=== PATIENT | male | born 1990 | race Caucasian/White ===

== ENCOUNTER 2022-01-11 16:52 | Emergency (ER) | payer OTHER, SELFPAY ==
[2022-01-11 17:01] VITALS: BP 137/70; PULSE 60; RESP 20; TEMP 36.7; O2SAT 137; BMI 33.7
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
--- OUTSIDE RECORDS SUMMARY | 2022-01-14 10:47 | XMS_ITS | Encounter Summary ---
:1990 Author Organization [email or web address] Address [address] [place] [address] Care Team Providers Name Role Phone Markie Samuel PA-C Primary Care Provider [phone] Reason for Visit Reason Comments Depression Registry Call 1 Encounter Details Date Type Department Care Team Description 08/01/2018 Telephone [place] [facility] Markie Samuel Depres sion Registry Medicine [facility] Call [address] [place] [address] Blvd [phone] [place], [place] [address] (Wo rk) Social History Tobacco Use Types Packs/Day Years Used Date Smoking Tobacco: Never Smokeless Tobacco: Never Alcohol Use Standard Drinks/Week Comments Yes 2 (1 standard drink = 0.6 oz pure alcoho l) weekly Alcohol Habits Answer Date Recorded How often do you have a drink containing alcohol? Not asked How many drinks containing alcohol do you have on a typical Not asked day when you are drinking? How often do you have six or more drinks on one occasion? No t asked Comment: weekly 07/19/2017 Sex Assigned at Date Recorded Not on file documented as of this encounter Nursing Notes Karina Charles MA - 08/01/2018 11:52 AM CDT PHQ 9 is 4, it was 2 in Dec documented in this encounter Plan of Treatment Not on filedocumented as of this encounter Visit Diagnoses Not on filedocumented in this encounter Care Teams Transmission Specialist Relationship Specialty Start Date End Date Markie Samuel PA-C PCP - General Physician Program Strategist 10/13/16 06/06/21 [address] [place] [address] documented as of this encounter
--- OUTSIDE RECORDS SUMMARY | 2022-01-14 10:47 | XMS_ITS | Encounter Summary ---
:1990 Author Organization [employer] Address [address] [place] [address] Care Team Providers Name Role Phone Markie Samuel PA-C Primary Care Provider [phone] Reason for Visit Reason Comments DEPRESSION Encounter Details Date Type Department Care Team Description 10/12/2017 Notes/Orders [place] [facility] Markie Samuel, [address] [place] [address] [phone] [place], [place] [address] (Wo rk) Social History [...] on file documented as of this encounter Plan of Treatment Not on filedocumented as of this encounter Visit Diagnoses Not on filedocumented in this encounter Care Teams Elevator Adjuster Relationship Specialty Start Date End Date Markie Samuel PA-C PCP - General Physician Sander Portable Machine 10/13/16 06/06/[address] [place] [address] documented as of this encounter
--- OUTSIDE RECORDS SUMMARY | 2022-01-14 10:47 | XMS_ITS | Encounter Summary ---
:1990 Author Organization [employer] Address [address] [place] [address] Care Team Providers Name Role Phone Markie Samuel PA-C Primary Care Provider [phone] Reason for Visit Reason Comments DEPRESSION Encounter Details Date Type Department Care Team Description 10/31/2017 Notes/Orders [place] [facility] Markie Samuel, [address] [place] [address] [address] [phone] [place], [place] [address] (Wo rk) Social History [...] on file documented as of this encounter Progress Notes Karina Charles MA - 10/31/2017 10:45 AM CDT LMTD PHQ 9 Karina Charles MA - 10/31/2017 10:45 AM CDT PHQ 9 is 2, it was 11 in August documented in this encounter Plan of Treatment Not on filedocumented as of this encounter Visit Diagnoses Not on filedocumented in this encounter Care Teams Chart Computer Relationship Specialty Start Date End Date Markie Samuel PA-C PCP - General Physician Booster Pump Operator 10/13/16 06/06/21 [address] [place] [address] documented as of this encounter
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
--- OUTSIDE RECORDS SUMMARY | 2022-01-14 10:47 | XMS_ITS | Encounter Summary ---
:1990 Author Organization [employer] Address [address] [place] [address] Care Team Providers Name Role Phone Markie Samuel PA-C Primary Care Provider [phone] Reason for Visit Reason Comments DEPRESSION Encounter Details Date Type Department Care Team Description 06/25/2018 Telephone [place] [facility] Markie Samuel PA-C DEPRESSION [address] [place] [address] [place] [address] [phone] (Wo rk) Social History Tobacco Use Types [...] encounter Nursing Notes Karina Charles MA - 06/25/2018 2:00 PM CDT PHQ 9 needed documented in this encounter Plan of Treatment Not on filedocumented as of this encounter Visit Diagnoses Not on filedocumented in this encounter Care Teams Ux Developer Designer Relationship Specialty Start Date End Date Markie Samuel PA-C PCP - General Physician Recreational Assistant 10/13/16 06/06/21 [address] [place] [address] documented as of this encounter
--- OUTSIDE RECORDS SUMMARY | 2022-01-14 10:47 | XMS_ITS | Encounter Summary ---
:1990 Author Organization [employer] Address [address] [place] [address] Care Team Providers Name Role Phone Markie Samuel PA-C Primary Care Provider [phone] Reason for Visit Reason Comments DEPRESSION Encounter Details Date Type Department Care Team Description 12/21/2017 Notes/Orders [place] [facility] Markie Samuel, [address] [place] [address] [address] [phone] [place], [place] [address] (Wo rk) Social History [...] encounter Progress Notes Karina Charles MA - 12/21/2017 8:19 AM CDT PHQ 9 is 2, it was 2 in October documented in this encounter Plan of Treatment Not on filedocumented as of this encounter Visit Diagnoses Not on filedocumented in this encounter Care Teams Container Filler Relationship Specialty Start Date End Date Markie Samuel PA-C PCP - General Physician Saw Runner 10/13/16 06/06/21 [address] [facility] [place] [address] documented as of this encounter
--- OUTSIDE RECORDS SUMMARY | 2022-01-14 10:47 | XMS_ITS | Encounter Summary ---
:1990 Author Organization [employer] Address [address] [place] [address] Care Team Providers Name Role Phone Markie Samuel PA-C Primary Care Provider [phone] Reason for Visit Reason Comments ASTHMA Encounter Details Date Type Department Care Team Description 11/04/2016 Notes/Orders [place] [facility] Markie Samuel, [address] [place] [address] [phone] [place], [place] [address] (Wo rk) Social History Tobacco Use Types Packs/Day Years Used Date Smoking Tobacco: Never Smokeless Tobacco: Never Alcohol Use Standard Drinks/Week Comments Yes 12 (1 standard drink = 0.6 oz pure alcoh ol) Tends to be socially Alcohol Habits Answer Date Recorded How often do you have a drink containing alcohol? Not asked How many drinks containing alcohol do you have on Not asked a typical day when you are drinking? How often do you have six or more drinks on one Not asked occasion? Comment: Tends to be socially 12/04/2013 Sex Assigned at Date Recorded Not on file documented as of this encounter Progress Notes Padmini Mobley LPN - 11/04/2016 9:44 AM CDT Registry updated. documented in this encounter Plan of Treatment Not on filedocumented as of this encounter Visit Diagnoses Not on filedocumented in this encounter Care Teams Premium Card Cancellation Clerk Relationship Specialty Start Date End Date Markie Samuel PA-C PCP - General Physician Cutter And Paster Press Clippings 10/13/16 06/06/21 [address] [facility] [address] documented as of this encounter
--- OUTSIDE RECORDS SUMMARY | 2022-01-14 10:47 | XMS_ITS | Encounter Summary ---
:1990 Author Organization [employer] Address [address] [place] [address] Care Team Providers Name Role Phone Markie Samuel PA-C Primary Care Provider [phone] Reason for Visit Reason Comments DEPRESSION Encounter Details Date Type Department Care Team Description 09/25/2017 Notes/Orders [place] [facility] Markie Samuel, [address] [facility] [place] [address] [phone] [place], [place] [address] (Wo rk) Social History [...] on filedocumented in this encounter Care Teams Data Management Analyst Relationship Specialty Start Date End Date Markie Samuel PA-C PCP - General Physician Rehabilitation Assistant 10/13/16 06/06/[address] [place] [address] documented as of this encounter
--- OUTSIDE RECORDS SUMMARY | 2022-01-14 10:47 | XMS_ITS | Encounter Summary ---
:1990 Author Organization [facility] Address [address] [place] [address] Care Team Providers Name Role Phone Markie Samuel PA-C Primary Care Provider [phone] Reason for Visit Reason Comments Refill citalopram (CELEXA) 20 MG ta blet [Pharmacy Med Name: CITALOPRAM HBR 20 MG TABLET] Encounter Details Date Type Department Care Team Description 08/24/2018 Refill Li Galvez, Refill (citalopram 1884 Devika Schwab MD (CELEXA) 20 [place] [address] [address] [Pharmacy Med Name: [phone] [place] [address] CITALOPRAM HBR 20 MG [phone] (Wo rk) TABLET]) Social History Tobacco Use Types Packs/Day Years [...] documented as of this encounter Nursing Notes Faiza Powell, REAGAN - 08/28/2018 10:35 AM CDT PRINTED appt letter sent Sonia Sanchez, RN - 08/24/2018 11:57 AM CDT OFFICE APPOINTMENT NEEDED Please notify patient to schedule an appointment within 30 days. Requested Prescriptions Pending Prescriptions Disp Refills ??? citalopram (CELEXA) 20 MG tablet [Pharmacy Med Name: CITALOPRAM HBR 20 MG TABLET] 90 Tablet 0 Sig: TAKE 1 TABLET BY MOUTH ONCE DAILY. Interface, Out Surescripts Prov Query - 08/24/2018 11:49 AM CDT citalopram (CELEXA) 20 MG tablet [Pharmacy Med Name: CITALOPRAM HBR 20 MG TABLET] Medication started: 01/30/2013 Last ordered by LI ORTIZ C: 07/19/2017 (401 days ago) QTY: 90, Refills: 3, Sig: take 1 tab by mouth daily. (changed but equivalent) -> Refill x 3 months (courtesy refill. overdue for an office visit) Last qualifying visit: 08/18/2017 (with LI ORTIZ) Next scheduled visit: None SBP: 104 mm Hg on 08/18/2017 DBP: 64 mm Hg on 08/18/2017 Powered by [employer] Reference: [id number], 08/24/2018 11:49:09 AM CDT, Pool: UMESH BUNNILL ([id number]) documented in this encounter Plan of Treatment Not on filedocumented as of this encounter Visit Diagnoses Not on filedocumented in this encounter Care Teams Airways Operations Specialist Relationship Specialty Start Date End Date Markie Samuel PA-C PCP - General Physician Shutdown Planner 10/13/16 06/06/21 [address] [place] [address] documented as of this encounter
--- OUTSIDE RECORDS SUMMARY | 2022-01-14 10:47 | XMS_ITS | Encounter Summary ---
:1990 Author Organization [facility] Address [address] [place] [address] Care Team Providers Name Role Phone Markie Samuel PA-C Primary Care Provider [phone] Reason for Visit Reason Comments ASTHMA Encounter Details Date Type Department Care Team Description 10/20/2016 Notes/Orders [place] [facility] Markie Samuel, [address] [place] [address] [phone] [place], [place] [address] (Wo rk) Social History [...] encounter Progress Notes Padmini Mobley LPN - 10/20/2016 8:03 AM CDT ACT mailed. documented in this encounter Plan of Treatment Not on filedocumented as of this encounter Visit Diagnoses Not on filedocumented in this encounter Care Teams Php Wordpress Developer Relationship Specialty Start Date End Date Markie Samuel PA-C PCP - General Physician Youth Care Specialist 10/13/16 06/06/21 [address] [facility] [place] [address] documented as of this encounter
--- OUTSIDE RECORDS SUMMARY | 2022-01-14 10:47 | XMS_ITS | Clinical Summary ---
:1990 Author Organization [facility] Address [address] [place] [address] Care Team Providers Name Role Phone Unavailable Primary Care Provider Unavailable Source Comments You are receiving this document as you are listed as the primary care provider,follow-up provider, or the patient has been referred to you for consultation.This is in compliance with the Medicare and Medicaid EHR Incentive Program,which states Providers who transition their patient to another setting of careor provider of care or refers their patient to another provider of care shouldprovide summarycare record for each transition of care or referral. Hydra Dx Allergies Active Allergy Reactions Severity Noted Date Comments Latex 08/10/2010 PN: Converted f rom LW Latex Sensitivity Fla g Other 06/25/2010 PN: LW Other1: -LATEX Penicillins 06/28/2002 PN: LW Reaction : Rash, Generalized Review Contrast Media 06/25/2010 PN: LW CM1: >>> NO CONTRAST ADVERSE REACTIO N <<< Reaction : Review Food Intolerance 06/25/2010 PN: LW FI1: bananas, cantalope, kiwi LW FI2: ba nanas, cantalope, kiwi Medications Medication Sig Dispensed Refills Start Date End Date Status citalopram (CELEXA) 20 TAKE 1 TABLET BY 90 Tablet 0 08/24/2018 Active MG tablet MOUTH ONCE DAILY. Active Problems Problem Noted Date Moderate episode of recurrent major depressive disorde r 07/19/2017 Anxiety 07/19/2017 Closed fracture of radius 07/20/2009 Overview: LW Modifier: Mar 2003. Left. Tranverse.N on-dispaced. ; Fx Radius NOS Closed Concussion with no loss of consciousness 07/20/2009 Overview: August 200809. Grade I. ; Concussion No LOC Asthma 11/24/2004 Overview: Trigger: Swimming.Running.URI. [id number] ; Asthma NOS Resolved Problems Problem Noted Date Resolved Date Adjustment reaction with anxiety and depression 02/25/2016 07/19/2017 Other acne 10/08/2007 11/29/2010 Overview: LW Modifier: See's derm. ; Acne NOS Acute pharyngitis 04/21/2005 05/22/2005 Overview: LW Onset: ; Pharyngitis Acute Immunizations Name Administration Dates Next Due DTaP 07/23/1997 DTaP/Hib 12/11/1993, 03/24/1993, 1992, 1992 Flu Vac Preserv Free (3+yrs) 02/28/2007 HepA Ped/Adol (1-18 yrs) 10/08/2007, 08/14/2006 HepB Ped/Adol (0-18 yrs) 09/09/2005, 04/13/2005, 11/24/2004 Influenza IIV4 (Quadrivalent) 0.5mL 01/30/2016 (13897) MCV4 (Menactra) 11/29/2010, 08/14/2006 MMR 07/23/1997, 12/11/1993 OPV, Trivalent (Orimune or tOPV) 07/23/1997, 12/08/1993, , 1992 TDAP (ADACEL) 11/29/2010 Td 10/02/2003 Varicella 10/08/2007, 01/15/2001 Family History Medical History Relation Name Comments Anxiety Father Depression Father Mental Disorder Father Anxiety Mother Depression Mother Cancer Maternal Grandfather Heart Disease Maternal Grandfather Anxiety Sister 1 Lilli Relation Name Status Comments Father Alive Born in 1959 Mother Alive Born in 1963 Brother [place] Alive Born in 1995 Maternal Grandfather Sister 1 Lilli Alive Born in 1989 Sister 2 January Alive Born in 1999 Social History Tobacco Use Types Packs/Day Years [...] Assigned at Date Recorded Not on file Last Filed Vital Signs Vital Sign Reading Time Taken Comments Blood Pressure 104/64 08/18/2017 8:30 AM CDT Pulse 72 08/18/2017 8:30 AM CDT Temperature 36.7 ??C (98 ??F) 10/19/2016 8:34 AM CDT Respiratory Rate 18 10/19/2016 8:34 AM CDT Oxygen Saturation 97% 10/19/2016 8:34 AM CDT Inhaled Oxygen Concentration - - Weight 105.7 kg (233 lb) 08/18/2017 8:30 AM CDT Height 190.5 cm (6' 3) 02/25/2016 3:38 PM REVIEW MANAGER Body Mass Index 29.12 02/25/2016 3:38 PM REVIEW MANAGER Plan of Treatment Health Maintenance Due Date Last Done Comments COVID-19 Vaccine (#1) 01/17/1993 Asthma AMP 19-50 yo 07/19/2011 Adult Preventive Visit 02/24/2018 02/25/2016 Asthma ACT 07/19/2018 07/19/2017, 11/04/2016, 10/13/2016 DTaP/Tdap/Td (7 - Tdap) 11/29/2020 11/29/2010, 10/02/2003, 07/23/1997, Additional history exists Influenza (#1) 2021 01/30/2016, 02/28/2007 Zoster/Shingles (1 of 2) 2042 Hib Completed 12/11/1993, 03/24/1993, 1992, Additional history exists IPV (Polio) Completed 07/23/1997, 12/08/1993, 1992, Additional history exists HepB Completed 09/09/2005, 04/13/2005, 11/24/2004 HepA Completed 10/08/2007, 08/14/2006 Varicella Completed 10/08/2007, 01/15/2001 HIV Screening (Preventive Completed 06/24/2010 Services) Hep C Screening (Preventive Completed 06/24/2010 Services) MCV4 Completed 11/29/2010, 08/14/2006 HPV Vaccine Aged Out No longer eligib le based on patient 's age to complete this topic Pneumococcal Aged Out No longer eligib le based on patient 's age to complete this topic Tom Eng Personal/Family Self 1990 [id number] [address] (Home) [address] [phone] Agustin FREEMAN (Work) [id number]
--- OUTSIDE RECORDS SUMMARY | 2022-01-14 10:47 | XMS_ITS | Encounter Summary ---
:1990 Author Organization [facility] Address [address] [place] [address] Care Team Providers Name Role Phone Markie Samuel PA-C Primary Care Provider [phone] Encounter Details Date Type Department Care Team Description 11/04/2016 Notes/Orders [facility] Markie Samuel, [address] [place] [address] [phone] [place], [place] [address] (Wo rk) Social History [...] on filedocumented in this encounter Care Teams Party Plan Sales Unit Advisor Relationship Specialty Start Date End Date Markie Samuel PA-C PCP - General Physician Wind Operations Manager 10/13/16 06/06/[address] [place] [address] documented as of this encounter
--- OUTSIDE RECORDS SUMMARY | 2022-01-14 10:47 | XMS_ITS | Encounter Summary ---
:1990 Author Organization [facility] Address [address] [place] [address] Care Team Providers Name Role Phone Markie Samuel PA-C Primary Care Provider [phone] Reason for Visit Reason Comments MEDICATION CHECK Encounter Details Date Type Department Care Team Description 08/18/2017 Office Visit Angus Galvez Moderate episode of recurren t major depressive disorder (HRC) (Primary Dx); [address] Dev[place] [address] [address] [phone] [place] [id number] Social History Tobacco Use Types Packs/Day Years [...] Pulse 72 08/18/2017 8:30 AM CDT Temperature - - Respiratory Rate - - Oxygen Saturation - - Inhaled Oxygen Concentration - - Weight 105.7 kg (233 lb) 08/18/2017 8:30 AM CDT Height - - Body Mass Index 29.12 02/25/2016 3:38 PM RAG SORTER documented in this encounter Progress Notes Angus Warren MD - 08/18/2017 8:30 AM CDT Please note that the medical documentation below was created with voice recognition software and maycontain typographic errors. Chief Complaint Patient presents with ??? MEDICATION CHECK SUBJECTIVE : Tom Eng is an 27 y.o. male who presents Today for follow-up for his depression and anxiety. I last saw him about one month ago. At that time we started him on citalopram 20 mg daily. He does feel like the medication definitely has helped his mood. He says his thoughts are better. He is much less anxious and paranoid. His boss has noticed that he is happier and has made comments to him regarding this. He has noticed that his appetite has been up. He also has noticed that he has been sleeping more. 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 He is looking for a new job where he does not have to work night shifts. He denies any otherside effects. Allergies Allergen Reactions ??? Latex PN: Converted from LW Latex Sensitivity Flag ??? Other PN: LW Other1: -LATEX ??? Penicillins PN: LW Reaction: Rash, Generalized ??? Review Contrast Media PN: LW CM1: >>> NO CONTRAST ADVERSE REACTION <<< Reaction : ??? Review Food Intolerance PN: LW FI1: bananas, cantalope, kiwi LW FI2: bananas, cantalope, kiwi OBJECTIVE : BP 104/64 (BP Location: Right Arm) Pulse 72 Wt 233 lb (105.7 kg) BMI 29.12 kg/m2 Estimated body mass index is 29.12 kg/(m^2) as calculated from the following: Height as of 02/25/16: 6' 3 (1.905 m). Weight as of this encounter: 233 lb (105.7 kg). Gen: Alert, cooperative in no acute distress. Mental Status Exam: Appearance: The patient is well groomed in appropriate attire, normally developed, establishes good eye contact. Mood: Good Affect: Congruent with mood and with good range. Thought Process: Thought form is linear and logical with no loosening of associations. Thought Content: No hallucinations or delusions. Insight: Good, developmentally appropriate. Judgment: Intact with ability to consent to treatment plan. Suicidal Ideation: No thoughts of harm to self or others PHQ-9: See flowsheet KATALINA-7: See flowsheet ASSESSMENT/PLAN : 1. Anxiety and depression----patient is doing well with the citalopram 20 g daily. He will continue this. If she is not improving or is becoming more symptomatic or unable to tolerate it I did recommend he decrease down to the 10 mg dose and see if this works well enough for him. documented in this encounter Plan of Treatment Not on filedocumented as of this encounter Visit Diagnoses Diagnosis Moderate episode of recurrent major depr essive disorder (HRC) - Primary Anxiety (HRC) Anxiety state, unspecified documented in this encounter Care Teams Intelligent Systems Engineer Relationship Specialty Start Date End Date Markie Samuel PA-C PCP - General Physician Sand Plant Attendant 10/13/16 06/06/21 [address] [place] [address] documented as of this encounter
--- OUTSIDE RECORDS SUMMARY | 2022-01-14 10:48 | XMS_ITS | Encounter Summary ---
:1990 Author Organization [facility] Address [address] [place] [address] Care Team Providers Name Role Phone Markie Samuel PA-C Primary Care Provider [phone] Reason for Visit Reason Onset Date Comments ASTHMA 10/13/2016 Encounter Details Date Type Department Care Team Description 10/13/2016 Telephone [place] [facility] Needs Pcp, Assignment ASTHMA [address] [place] [address] [place] [address] [phone] Social History Tobacco Use Types Packs/Day Years [...] documented as of this encounter Nursing Notes Padmini Mobley LPN - 10/13/2016 8:07 AM CDT ACT updated today with pt over phone. Done. documented in this encounter Plan of Treatment Not on filedocumented as of this encounter Visit Diagnoses Not on filedocumented in this encounter Care Teams Manager Field Service Relationship Specialty Start Date End Date Markie Samuel PA-C PCP - General Physician Machining Department Supervisor 10/13/16 06/06/21 [address] [place] [address] documented as of this encounter
--- OUTSIDE RECORDS SUMMARY | 2022-01-14 10:48 | XMS_ITS | Encounter Summary ---
:1990 Author Organization [facility] Address [address] [place] [address] Care Team Providers Name Role Phone Jay Cho PA-C Primary Care Provider Reason for Visit Reason Comments Refill Encounter Details Date Type Department Care Team Description 03/01/2013 Refill [place] [facility] Jay Cho PA-C Refill [address] [place] [address] [place] [address] [phone] (Wo rk) Social History Tobacco Use Types Packs/Day Years Used Date Smoking Tobacco: Never Assessed Sex Assigned at Date Recorded Not on file documented as of this encounter Nursing Notes Hermelinda Bell RN - 03/01/2013 2:24 PM CST DOES NOT MEET REQUIREMENTS FOR REFILL Reason: New med without refill Last visit with PCP: qualifying visit on 01/30/13 Last Rx 01/30/13. CELEXA 20 mg. 30 tablet. 0 refill Please see below. ONAL EXPANSION RECRUITER Jackie Dean - 03/01/2013 1:30 PM CST Pt states he is out of medication. Verified pharmacy. Pt has appt scheduled for 03-06 documented in this encounter Plan of Treatment Not on filedocumented as of this encounter Visit Diagnoses Diagnosis Depression, major, single episode, moder ate (HRC) - Primary Major depressive disorder, single episod e, moderate documented in this encounter Care Teams Special Inspector Relationship Specialty Start Date End Date Jay Cho PA-C PCP - General 03/01/13 09/19/16 [address] [place], [place] [address] documented as of this encounter
--- OUTSIDE RECORDS SUMMARY | 2022-01-14 10:48 | XMS_ITS | Encounter Summary ---
:1990 Author Organization [facility] [employer] Address [address] [place] [address] Care Team Providers Name Role Phone Markie Samuel PA-C Primary Care Provider [phone] Reason for Visit Reason Comments Chest Pain Encounter Details Date Type Department Care Team Description 10/19/[address] [facility] Urgent [place], Chris Sternoco stal pain (Primary Dx); Encounter Care AYM Paz Costochondritis [address] [address] [facility] [place] [address] [phone] Social History Tobacco Use Types Packs/Day Years [...] Sign Reading Time Taken Comments Blood Pressure 106/64 10/19/2016 8:34 AM CDT Pulse 56 10/19/2016 8:34 AM CDT Temperature 36.7 ??C (98 ??F) 10/19/2016 8:34 AM CDT Respiratory Rate 18 10/19/2016 8:34 AM CDT Oxygen Saturation 97% 10/19/2016 8:34 AM CDT Inhaled Oxygen Concentration - - Weight - - Height - - Body Mass Index - - documented in this encounter Discharge Instructions Discharge InstructionsChris Lyle PA-C - 10/19/2016 8:48 AM CDT No lifting over 20 lbs, no pushing or pulling over 50 lbs. NO lifting above your head. No ladders...Restrictions for 14 days ICE, topicals like Icyhot..at bedtime Costochondritis: Care Instructions Your Care Instructions You have chest pain because the cartilage of your rib cage is inflamed. This problem is called costochondritis. This type of chest wall pain may last from days to weeks. It is not a heart problem. Sometimes costochondritis occurs with a cold or the flu, and other times the exact cause is not known. Follow-up care is a roger part of your treatment and safety. Be sure to make and go to all appointments, and call your doctor if you are having problems. It???s also a good idea to know your test resultsand keep a list of the medicines you take. How can you care for yourself at home? ?? Take medicines for pain and inflammation exactly as directed. ?? If the doctor gave you a prescription medicine, take it as prescribed. ?? If you are not taking a prescription pain medicine, ask your doctor if you can take an qdqt-wlk-mudwqkf medicine. ?? Do not take two or more pain medicines at the same time unless the doctor told you to. Many pain medicines have acetaminophen, which is Tylenol. Too much acetaminophen (Tylenol) can be harmful. ?? It may help to use a warm compress or heating pad (set on low) on your chest. You can also try alternating heat and ice. Put ice or a cold pack on the area for 10 to 20 minutes at a time. Put a thincloth between the ice and your skin. ?? Avoid any activity that strains the chest area. As your pain gets better, you can slowly return to your normal activities. ?? Do not use tape, an elastic bandage, a rib belt, or anything else that restricts your chest wall motion. When should you call for help? Call 911 anytime you think you may need emergency care. For example, call if: ?? You have new or different chest pain or pressure. This may occur with: ?? Sweating. ?? Shortness of breath. ?? Nausea or vomiting. ?? Pain that spreads from the chest to the neck, jaw, or one or both shoulders or arms. ?? Dizziness or lightheadedness. ?? A fast or uneven pulse. After calling 911, chew 1 adult-strength aspirin. Wait for an ambulance. Do not try to drive yourself. ?? You have severe trouble breathing. Call your doctor now or seek immediate medical care if: ?? You have a fever or cough. ?? You have any trouble breathing. ?? Your chest pain gets worse. Watch closely for changes in your health, and be sure to contact your doctor if: ?? Your chest pain continues even though you are taking anti-inflammatory medicine. ?? Your chest wall pain has not improved after 5 to 7 days. Where can you learn more? 1. Go to [employer] or [email or web address]. 2. Enter K868 in the search box. Current as of: September 11, 2015 Content Version: 11.2 ?? 5729-8439 Tyfone. documented in this encounter Medications at Time of Discharge Medication Sig Dispensed Refills Start Date End Date naproxen (NAPROSYN) 500 Take 1 Tab by mouth 30 Tab 0 08/201611/03/2016 MG tablet two times a day with meals for 15 days. citalopram (CELEXA) 20 MG 1/2 tab po x 2 30 Tab 0 201507/19/2017 tabletIndications: weeks, then 1 tab po Adjustment reaction with qday. anxiety and depression (HRC) documented as of this encounter ED Notes Chris Lyle PA-C - 10/19/2016 8:49 AM CDT SUBJECTIVE: Tom Eng is a 26 y.o.male presenting to urgent care for evaluation of chest pain. Noticed it yesterday. Worse last night. He describes it as sharp and intermittent pain with a constant dull ache. Certain positions make it worse. It hurts to turn twist lift push pull or taking a deep breath. He denies any rash. No cough. No fever or chills. No abdominal pain. No exertional symptoms other than pain with specific movements or to touch. He has not had this in the past. He has a physical job but remembers no specific injury. Social History: Social History Substance Use Topics ??? Smoking status: Never Smoker ??? Smokeless tobacco: Never Used ??? Alcohol use 7.2 oz/week 12 Cans of beer per week Comment: Tends to be socially Past Medical History: Patient Active Problem List Diagnosis ??? Asthma (HRC) ??? Closed fracture of radius ??? Concussion with no loss of consciousness ??? Adjustment reaction with anxiety and depression (HRC) Adverse Drug Reactions: Latex; Other; Penicillins; Review contrast media; and Review food intolerance ROS: Complete ROS was negative other than what was cited above. Medications: citalopram and naproxen OBJECTIVE: Vital Signs: BP 106/64 Pulse (!) 56 Temp 36.7 ??C (98 ??F) (Oral) Resp 18 SpO2 97%. General: No acute distress Skin: No abnormal rash. No obvious swelling. Musculoskeletal: There is palpable, reproducible chest wall pain anteriorly along the sternal costaljunctions. Palpation of this area reproduces his discomfort specifically and exactly. Lungs: CTA CV: Regular rate and rhythm a pressure gallops or murmurs Labs: No results found for this visit on 10/19/16. X-Rays: No results found. Orders Placed This Encounter ??? naproxen (NAPROSYN) 500 MG tablet ASSESSMENT: 1. Sternocostal pain 2. Costochondritis PLAN: Medications - No data to display Discharge Medication List as of 10/19/2016 8:49 AM START taking these medications Details naproxen (NAPROSYN) 500 MG tablet Take 1 Tab by mouth two times a day with meals for 15 days., Disp-30 Tab, R-0, BID WITH MEALS Starting 10/19/2016, Until Emy 11/03/16, Oral, Normal CONTINUE these medications which have NOT CHANGED Details citalopram (CELEXA) 20 MG tablet 1/2 tab po x 2 weeks, then 1 tab po qday., Disp-30 Tab, R-0, Normal Medications Prescribed this Visit Disp Refills Start End naproxen (NAPROSYN) 500 MG tablet 30 Tab 0 10/19/2016 11/03/2016 Take 1 Tab by mouth two times a day with meals for 15 days. Oral work note was given with restrictions. We discussed that this may take several days to weeks to resolve fully. Follow-up with primary care if it persists. Discharge Instructions No lifting over 20 lbs, no pushing or pulling over 50 lbs. NO lifting above your head. No ladders... Restrictions for 14 days ICE, topicals like Icyhot..at bedtime Costochondritis: Care Instructions Your Care Instructions You have chest pain because the cartilage of your rib cage is inflamed. This problem is called costochondritis. This type of chest wall pain may last from days to weeks. It is not a heart problem. Sometimes costochondritis occurs with a cold or the flu, and other times the exact cause is not known. Follow-up care is a roger part of your treatment and safety. Be sure to make and go to all appointments, and call your doctor if you are having problems. It???s also a good idea to know your test results and keep a list of the medicines you take. How can you care for yourself at home? ?? Take medicines for pain and inflammation exactly as directed. ?? If the doctor gave you a prescription medicine, take it as prescribed. ?? If you are not taking a prescription pain medicine, ask your doctor if you can take an byen-uio-ixmfquk medicine. ?? Do not take two or more pain medicines at the same time unless the doctor told you to. Many pain medicines have acetaminophen, which is Tylenol. Too much acetaminophen (Tylenol) can be harmful. ?? It may help to use a warm compress or heating pad (set on low) on your chest. You can also try alternating heat and ice. Put ice or a cold pack on the area for 10 to 20 minutes at a time. Put a thin cloth between the ice and your skin. ?? Avoid any activity that strains the chest area. As your pain gets better, you can slowly return to your normal activities. ?? Do not use tape, an elastic bandage, a rib belt, or anything else that restricts your chest wall motion. When should you call for help? Call 911 anytime you think you may need emergency care. For example, call if: ?? You have new or different chest pain or pressure. This may occur with: ?? Sweating. ?? Shortness of breath. ?? Nausea or vomiting. ?? Pain that spreads from the chest to the neck, jaw, or one or both shoulders or arms. ?? Dizziness or lightheadedness. ?? A fast or uneven pulse. After calling 911, chew 1 adult-strength aspirin. Wait for an ambulance. Do not try to drive yourself. ?? You have severe trouble breathing. Call your doctor now or seek immediate medical care if: ?? You have a fever or cough. ?? You have any trouble breathing. ?? Your chest pain gets worse. Watch closely for changes in your health, and be sure to contact your doctor if: ?? Your chest pain continues even though you are taking anti-inflammatory medicine. ?? Your chest wall pain has not improved after 5 to 7 days. Where can you learn more? 1. Go to [employer] or [email or web address]. 2. Enter K868 in the search box. Current as of: September 11, 2015 Content Version: 11.2 ?? [id number] Tyfone. The patient was discharged ambulatory and in stable condition. documented in this encounter Plan of Treatment Not on filedocumented as of this encounter Visit Diagnoses Diagnosis Sternocostal pain - Primary Other chest pain Costochondritis Tietze's disease Triage Assessment Note - Tayler Haile RN - 10/19/2016 8:33 AM CDT Pt c/o left sided chest pain, onset last night around 2029. Pt states pain is worse with movement and with deep breathing. documented in this encounter Care Teams Liner Worker Relationship Specialty Start Date End Date Markie Samuel PA-C PCP - General Physician Forensics Analyst 10/13/16 06/06/21 [address] [place] [address] documented as of this encounter
--- OUTSIDE RECORDS SUMMARY | 2022-01-14 10:48 | XMS_ITS | Encounter Summary ---
:1990 Author Organization [employer] Address [address] [place] [address] Care Team Providers Name Role Phone Sim Asher MD Primary Care Provider Encounter Details Date Type Department Care Team Description 09/24/2012 Lab Visit [facility] Urinary frequency; [address] [place]ough; [place] [address] Bright red rectal bleeding [phone] Social History Tobacco Use Types Packs/Day Years Used Date Smoking Tobacco: Never Assessed Sex Assigned at Date Recorded Not on file documented as of this encounter Progress Notes Macey Alejandra - 09/25/2012 12:28 PM CDT Quick Note: Please call patient kidney functions normal, hemoglobin A1c (diabetes marker) 5.5% normal. No concerns for diabetes, STD probe still pending. documented in this encounter Miscellaneous Notes Miscellaneous - 05/27/2016 6:31 AM CSTNotes Recorded by Macey Alejandra PA-C on 09/25/2012 at 12:28 PMPlease call patient kidney functions normal, hemoglobin A1c (diabetes marker) 5.5% normal. No concerns for diabetes, STD probe still pending. 'S ADVISER Miscellaneous - 05/27/2016 6:31 AM CSTNotes Recorded by Macey Alejandra PA-C on 09/25/2012 at 12:28 PMPlease call patient kidney functions normal, hemoglobin A1c (diabetes marker) 5.5% normal. No concerns for diabetes, STD probe still pending. 'S ADVISER Miscellaneous - 05/27/2016 6:31 AM CSTNotes Recorded by Macey Alejandra PA-C on 09/25/2012 at 12:28 PMPlease call patient kidney functions normal, hemoglobin A1c (diabetes marker) 5.5% normal. No concerns for diabetes, STD probe still pending. 'S ADVISER documented in this encounter Plan of Treatment Not on filedocumented as of this encounter Procedures Procedure Name Priority Date/Time Associated Comments Diagnosis CREATININE / GFR Routine 09/24/2012 3:06 PM Urinary frequency Results for this CDT procedure are i n the results section. COMPLETE BLOOD Routine 09/24/2012 3:06 PM Urinary frequ ency Results for this COUNT-NO DIFF CDT Cough procedure are in Bright red rectal the result s bleeding section. HGB A1C Routine 09/24/2012 3:06 PM Urinary frequency Resu lts for this CDT procedure are i n the results section. documented in this encounter Results Hemogram/Plts (09/24/2012 3:06 PM CDT) athologist Signature White Blood Cell 6.8 3.8 - 11.0 HP CONVERSIO N Count k/cmm Red Blood Cell 5.23 4.20 - HP CONVERSION Count 5.90 m/cmm Hemoglobin 14.9 13.4 - HP CONVERSION 17.5 g/dL Hematocrit 42.3 39.0 - HP CONVERSION 51.0 % Mean Corpuscular 80.9 80.0 - HP CONVERSION Volume 100.0 fL RDW 13.1 11.0 - HP CONVERSION 15.0 % Platelet Count 260 140 - 450 HP CONVERSION k/cmm Specimen Anatomical Collection Method Collection Time Receive d Time (Source) Location / / Volume Laterality 09/24/2012 3:06 PM 3 3:05 CDT PM CDT Narrative HP CONVERSION - 09/24/2012 3:08 PM CDT Performed at [facility], [address] [place] [address] Transcriptions 05/27/2016 6:31 AM CSTNotes Recorded by Macey Alejandra PA-C on 09/25/2012 at 12:28 PMPlease call patient kidney functions normal, hemoglobin A1c (diabetes marker) 5.5% normal. No concerns for diabetes, STD probe still pending. Macey Alejandra LAB_1 Performing Organization Address City/[facility]/ZIP Code Phon e Number HP CONVERSION Hgb A1c (09/24/2012 3:06 PM CDT) athologist Signature HGB A1C 5.5 0.0 - 6.0 % HP CONVERSION Specimen Anatomical Collection Method Collection Time Receive d Time (Source) Location / / Volume Laterality 09/24/2012 3:06 PM 3 6:23 CDT PM CDT Transcriptions 05/27/2016 6:31 AM CSTNotes Recorded by Macey Alejandra PA-C on 09/25/2012 at 12:28 PMPlease call patient kidney functions normal, hemoglobin A1c (diabetes marker) 5.5% normal. No concerns for diabetes, STD probe still pending. Macey Alejandra LAB_1 Performing Organization Address City/[facility] Phon e Number HP CONVERSION Creatinine / GFR (09/24/2012 3:06 PM CDT) athologist Signature Creatinine 1.0 0.4 - 1.3 HP CONVERSION Serum mg/dL Est GFR >60 >60 HP CONVERSION Am mL/min/1.7 3m2 Est GFR Non-Afr >60 >60 HP CONVERSION Am mL/min/1.7 3m2 Comment: Normal>60, moderate decrease 30 - 59, se kary decrease 15 - 29, renal failure <15 mL/min/1.73 m2 NOTE: ??Choose the eGFR result above bee ropriate for the race of the patient. Specimen Anatomical Collection Method Collection Time Receive d Time (Source) Location / / Volume Laterality 09/24/2012 3:06 PM 3 8:35 CDT PM CDT Narrative HP CONVERSION - 09/24/2012 9:02 PM CDT Performed at [facility], [address] [place] [address] Transcriptions 05/27/2016 6:31 AM CSTNotes Recorded by Macey Alejandra PA-C on 09/25/2012 at 12:28 PMPlease call patient kidney functions normal, hemoglobin A1c (diabetes marker) 5.5% normal. No concerns for diabetes, STD probe still pending. Macey Alejandra LAB_1 Performing Organization Address City/State/ZIP Code Phon e Number HP CONVERSION documented in this encounter Visit Diagnoses Diagnosis Urinary frequency Cough Bright red rectal bleeding Hemorrhage of rectum and anus documented in this encounter Care Teams Machine Wiper Relationship Specialty Start Date End Date Sim Asher MD PCP - General 07/19/10 02/28/13 [address] [place], [place] [id number] documented as of this encounter
--- OUTSIDE RECORDS SUMMARY | 2022-01-14 10:48 | XMS_ITS | Encounter Summary ---
:1990 Author Organization [email or web address] Address [address] [place] [address] Care Team Providers Name Role Phone Jay Cho PA-C Primary Care Provider Reason for Visit Reason Comments PHQ9 Encounter Details Date Type Department Care Team Description 08/07/2013 Notes/Orders [facility] Karina Charles A, Major depressive [address] [place] disorder, single [address] [place] [address] episode, moderate [phone] (Primary Dx) Social History Tobacco Use Types Packs/Day Years Used Date Smoking Tobacco: Never Assessed Sex Assigned at Date Recorded Not on file documented as of this encounter Plan of Treatment Not on filedocumented as of this encounter Visit Diagnoses Diagnosis Major depressive disorder, single episod e, moderate (HRC) - Primary Major depressive disorder, single episod e, moderate documented in this encounter Care Teams Ruffling Hemmer Automatic Relationship Specialty Start Date End Date Jay Cho PA-C PCP - General 03/01/13 09/19/[address] [place] [address] documented as of this encounter
--- OUTSIDE RECORDS SUMMARY | 2022-01-14 10:48 | XMS_ITS | Encounter Summary ---
:1990 Author Organization [employer] Address [address] [place] [address] Care Team Providers Name Role Phone Sim Asher MD Primary Care Provider Reason for Visit Reason Comments Other Encounter Details Date Type Department Care Team Description 01/21/2013 Telephone [facility] Sim Asher MD Other [address] [place] [address] [place] [address] [phone] (Wo rk) Social History Tobacco Use Types Packs/Day Years Used Date Smoking Tobacco: Never Assessed Sex Assigned at Date Recorded Not on file documented as of this encounter Nursing Notes John Carrasquillo RN - 01/23/2013 9:38 AM CDT Mom did not return call, will close note. Radha Ashton LPN - 01/22/2013 9:08 AM CDT Triage nurse called mom x2 with no response. Mom advised phone note will be closed after 5pm today. If further assistance needed after 5pm mom should call our main number and start a new message. Shemar Melara - 01/21/2013 4:38 PM CDT mom has some questions regarding pt mood documented in this encounter Plan of Treatment Not on filedocumented as of this encounter Visit Diagnoses Not on filedocumented in this encounter Care Teams Field Automobile Adjuster Relationship Specialty Start Date End Date Sim Asher MD PCP - General 07/19/10 02/28/13 [address] [place], [place] [id number] documented as of this encounter
--- OUTSIDE RECORDS SUMMARY | 2022-01-14 10:48 | XMS_ITS | Encounter Summary ---
:1990 Author Organization [employer] Address [address] [place] [address] Care Team Providers Name Role Phone Sim Asher MD Primary Care Provider Encounter Details Date Type Department Care Team Description 09/24/2012 Lab Visit [facility] Urinary frequency [address] [place] [address] Social History Tobacco Use Types Packs/Day Years Used Date Smoking Tobacco: Never Assessed Sex Assigned at Date Recorded Not on file documented as of this encounter Plan of Treatment Not on filedocumented as of this encounter Procedures Procedure Name Priority Date/Time Associated Comments Diagnosis URINALYSIS ROUTINE, Routine 09/24/2012 2:42 PM Urinary frequen cy Results for this MICRO/CULTURE IF POS CDT procedu re are in the results section. documented in this encounter Results URINALYSIS ROUTINE, MICRO/CULTURE IF POS (09/24/2012 2:42 PM CDT) [facility] Method Time Signature Urine Type Urine:clean HP CONVERSION cat Turbidity Clear Clear HP CONVERSION U BILI Negative Negative HP CONVERSION Blood Urine Negative Negative HP CONVERSION Glucose, Negative Neg-30 HP CONVERSION Qualitative U mg/dL Ketones Negative Negative HP CONVERSION Leukocyte Negative Negative HP CONVERSION Esterase Urine Nitrite Urine Negative Negative HP CONVERSION pH Urine 7.0 5.0 - 8.0 HP CONVERSION Protein Urine Negative Neg - Trace HP CONVERSION mg/dL U Specific 1.015 1.005 - HP CONVERSION [place] 1.030 Urobilinogen Negative Negative HP CONVERSION Urine Eu/dL Specimen Anatomical Collection Method Collection Time Receive d Time (Source) Location / / Volume Laterality Urine: 09/24/2012 2:42 PM 3 2:42 CDT PM CDT Narrative HP CONVERSION - 09/24/2012 2:45 PM CDT Performed at [facility], [address] [place] [address] Macey Alejandra LAB_1 Performing Organization Address City/State/ZIP Code Phon e Number HP CONVERSION documented in this encounter Visit Diagnoses Diagnosis Urinary frequency documented in this encounter Care Teams Legal Contracts Specialist Relationship Specialty Start Date End Date Sim Asher MD PCP - General 07/19/10 02/28/13 [address] [place] [address] documented as of this encounter
--- OUTSIDE RECORDS SUMMARY | 2022-01-14 10:48 | XMS_ITS | Encounter Summary ---
:1990 Author Organization [employer] Address [address] [place] [address] Care Team Providers Name Role Phone Markie Samuel PA-C Primary Care Provider [phone] Reason for Visit Reason Onset Date Comments CHEST PAIN 10/19/2016 Encounter Details Date Type Department Care Team Description 10/19/2016 Nurse Triage [facility] Markie Samuel, CHEST PAIN [address] [place] [address] [phone] [place], [place] [address] (Wo rk) Social History [...] documented as of this encounter Nursing Notes Elena Rome RN - 10/19/2016 7:24 AM CDT Reason for Disposition ? ? Chest pain lasts > 5 minutes (Exceptions: chest pain occurring > 3 days ago and now asymptomatic; same as previously diagnosed heartburn and has accompanying sour taste in mouth) Protocols used: CHEST [id number] Pt has been at work all night and has had chest pain the entire time. Has been able to work through the pain. No injury. No SOB. It does not go away. Recommended that pt be seen. Will come in to UC as soon as he is off work. Has been able to work. documented in this encounter Plan of Treatment Not on filedocumented as of this encounter Visit Diagnoses Not on filedocumented in this encounter Care Teams Line Fixer Relationship Specialty Start Date End Date Markie Samuel PA-C PCP - General Physician Medical Equipment Repairer 10/13/16 06/06/21 [address] [place] [address] documented as of this encounter
--- OUTSIDE RECORDS SUMMARY | 2022-01-14 10:48 | XMS_ITS | Encounter Summary ---
:1990 Author Organization [email or web address] Address [address] [place] [address] Care Team Providers Name Role Phone Sim Asher MD Primary Care Provider Encounter Details Date Type Department Care Team Description 09/24/2012 Lab Visit [facility] Urinary frequency [id number] [place] [address] Social History Tobacco Use Types Packs/Day Years Used Date Smoking Tobacco: Never Assessed Sex Assigned at Date Recorded Not on file documented as of this encounter Progress Notes Macey Alejandra - 09/26/2012 10:25 AM CDT Quick Note: Please call patient STD probe GC/CT negative documented in this encounter Miscellaneous Notes Miscellaneous - 08/05/2016 12:42 AM CDTNotes Recorded by Macey Alejandra PA-C on 09/26/2012 at 10:25 AMPlease call patient STD probe GC/CT negative documented in this encounter Plan of Treatment Not on filedocumented as of this encounter Procedures Procedure Name Priority Date/Time Associated Comments Diagnosis SEXUALLY TRANSMITTED Routine 09/24/2012 2:47 PM Urinary freque ncy Results for this DISEASE PROBE CDT procedure are in the results section. documented in this encounter Results SEXUALLY TRANSMITTED DISEASE PROBE (09/24/2012 2:47 PM CDT) Component Value Ref Test Analysis Performed At [facility] Method Time Signature Source Urine for HP CONVERSION molecular testing Site HP CONVERSION Chlamydia Chlamydia HP CONVERSION Trach DNA trachomatis NEGATIVE by DNA amplification GC DNA Neisseria HP CONVERSION gonorrhea NEGATIVE by DNA amplification. Specimen (Source) Anatomical Collection Method Collection Time Re ceived Time Location / / Volume Laterality Urine for 09/24/2012 2:47 PM molecular CDT testing: Transcriptions 08/05/2016 12:42 AM CDTNotes Recorded by Macey Alejandra PA-C on 09/26/2012 at 10:25 AMPlease call patient STD probe GC/CT negative Macey Alejandra LAB_1 Performing Organization Address City/State/ZIP Code Phon e Number HP CONVERSION documented in this encounter Visit Diagnoses Diagnosis Urinary frequency documented in this encounter Care Teams Carpenter Supervisor Wooden Ship Relationship Specialty Start Date End Date Sim Asher MD PCP - General 07/19/10 02/28/13 [address] [place], [place] [id number] documented as of this encounter
--- OUTSIDE RECORDS SUMMARY | 2022-01-14 10:48 | XMS_ITS | Encounter Summary ---
:1990 Author Organization [facility] Address [address] [place] [address] Care Team Providers Name Role Phone Jay Cho PA-C Primary Care Provider Reason for Visit Reason Comments Refill Encounter Details Date Type Department Care Team Description 03/22/2013 Refill [facility] Jay Cho PA-C Refill [address] [place] [address] [place] [id number] [phone] (Wo rk) Social History Tobacco Use Types Packs/Day Years Used Date Smoking Tobacco: Never Assessed Sex Assigned at Date Recorded Not on file documented as of this encounter Nursing Notes Violet Lopez LPN - 03/22/2013 1:28 PM CST Pt was called and told his rx was sent to the pharmacy. OR SOLUTIONS ENGINEER Jay Cho PA-C - 03/22/2013 12:11 PM CST Please call and notify the patient that the med has been sent. I sent 90 days over for him. Radha Greco LPN - 03/22/2013 11:23 AM CST Action requested: Medication refill Additional Info: Triage nurse called patient back, he was in to see Jay Cho on 03/06/13 for depression. He is now taking Celexa 30mg every day. It is really helping. No side effects. He needs at least a 2 month supply as he will be in [place] when it is time to refill. Call him back when this has been done at [facility] Eng (Self) [phone] (M) [facility] verified. OR SOLUTIONS ENGINEER Mei Wong - 03/22/2013 11:17 AM CST PSC Medication Issue/Refill Primary Care Provider: Jay Cho Patient to contact pharmacy: no Comment: Pt says he was advised to call Jay Koreyp[facility] to request new rx. Pt requesting 2 month supply because next time he needs rx he'll be out of town. Please advise. Pharmacy Name & Phone #: [facility] [place] City: [place] Drug Name: Citalopram Strength: Pt says med was going to be increased to 30mg Dose/Route/Freq: 1x a day *ECODE documented in this encounter Plan of Treatment Not on filedocumented as of this encounter Visit Diagnoses Diagnosis Depression, major, single episode, moder ate (HRC) - Primary Major depressive disorder, single episod e, moderate documented in this encounter Care Teams Personal Development Mentor Relationship Specialty Start Date End Date Jay Cho PA-C PCP - General 03/01/13 09/19/16 [address] [place], [place] [id number] documented as of this encounter
--- OUTSIDE RECORDS SUMMARY | 2022-01-14 10:48 | XMS_ITS | Encounter Summary ---
:1990 Author Organization [employer] Address [address] [place] [address] Care Team Providers Name Role Phone Sim Asher MD Primary Care Provider Reason for Visit Reason Comments Cough Urinary Frequency Rectal Bleeding Encounter Details Date Type Department Care Team Description 09/24/2012 Office Visit [facility] Macey Alejandra Urinamarilee y frequency (Primary Dx); Medicine Cough; [address] [place] [phone] Social History Tobacco Use Types Packs/Day Years Used Date Smoking Tobacco: Never Assessed Sex Assigned at Date Recorded Not on file documented as of this encounter Last Filed Vital Signs Vital Sign Reading Time Taken Comments Blood Pressure 117/68 09/24/2012 2:36 PM CDT Pulse 57 09/24/2012 2:36 PM CDT Temperature 36.3 ??C (97.3 ??F) 09/24/2012 2:36 PM CDT Respiratory Rate 18 09/24/2012 2:36 PM CDT Oxygen Saturation 100% 09/24/2012 2:36 PM CDT Inhaled Oxygen Concentration - - Weight 104.6 kg (230 lb 8 oz) 09/24/2012 2:36 PM CDT Height 189.2 cm (6' 2.5) 09/24/2012 2:36 PM CDT Body Mass Index 29.2 09/24/2012 2:36 PM CDT documented in this encounter Progress Notes Macey Alejandra - 09/24/2012 4:23 PM CDT Subjective: Chief complaint: Chief Complaint Patient presents with ??? Cough onset this am productive with blood in it ??? Urinary Frequency Has feeling hvaing to urinate right after voiding ??? Rectal Bleeding(BLOOD IN STOOLS) bright red blood in stools Tom Eng is an 22 y.o. male who presents to the clinic for evaluation of cough, urinary frequency, and rectal bleeding Cough- onset this am. Reports coughing up mucus which was blood tinged once. He reports his mother has been sick with a cold. Associated symptoms include difficulty taking a deep breath and throat irritation. He does reports having a history of exercise or cold induced asthma. He has used albuterol asneeded in the past. Denies ever using a daily steroid inhaler. UTD immunizations. Denies recent travel. Denies history of TB or contact with person with TB. He reports being overall healthy, recently finished running in track. Denies trauma to his chest. Denies WOODWARD or chest pain with coughing. Urinary frequency- Reports urinating and feeling like he needs to continue to urinate after. Denies pain with urinating, difficulty starting or stopping stream. A few nights ago he reports going 4 times before he was able to sleep. Denies blood in urine. Denies penile discharge. He reports being sexually active and has had previous STD testing, last time per epic 2010. Denies history of STD. He is mainly concerned with diabetes because he reports being an overweight child. He has recently started decreasing his sugar and soda intake and drinking more water. Blood in stool- He reports having 1 episodes of blood on the toilet paper after BM. He reports occasionally having harder stools. Denies history of constipation. He reports mild pain after BM. Denies family history of inflammatory bowel disorder or colon cancer. ROS: - fever, chills, night sweats, weight loss, fatigue - runny nose, congestion, sneezing, itchy eyes - chest pain, palpitations, SOB - abdominal pain, N/V/D, - mucus in stool - rash, edema - headache, dizziness, numbness or tingling Past Medical History Diagnosis Date ??? Asthma NOS 11/24/2004 Trigger: Swimming.Running.URI. 70Dkg40 Medications reviewed in EMR Adverse drug reactions: Latex; Other; Penicillins; Review contrast media; and Review food intolerance Immunizations: Immunization History Administered Date(s) Administered ??? DTP/HiB (Tetramune) 1992, 1992, 03/24/1993, 12/11/1993 ??? DTaP 07/23/1997 ??? Hep A Ped/adol (1-18 yrs) 08/14/2006, 10/08/2007 ??? Hep B ped/adol vaccine 10mcg 11/24/2004, 04/13/2005, 09/09/2005 ??? Influenza TIV 0.5ml (36+ mos) 02/28/2007 ??? MCV4 (Menactra) 08/14/2006, 11/29/2010 ??? MMR 12/11/1993, 07/23/1997 ??? Oral Polio Vaccine 1992, 1992, 12/08/1993, 07/23/1997 ? ? Td Adult (>7 years) 10/02/2003 ??? Tdap (Adacel) 11/29/2010 ??? Varicella 01/15/2001, 10/08/2007 Vital signs: BP 117/68 Pulse 57 Temp(Src) 97.3 ??F (36.3 ??C) (Oral) Resp 18 Ht 6' 2.5 (1.892 m) Wt 230 lb 8 oz (104.554 kg) BMI 29.21 kg/m2 SpO2 100% Objective: Vital signs reviewed General- Patient in no acute distress, well-groomed, pleasant, appears healthy. Sitting comfortably,well oriented. Head- normocephalic, atraumatic Eyes- PERRL, lids and sclera normal Ears- TM intact, opaque, non bulging, canal normal. Nose- patent, no rhinorrhea Oropharynx- no thrush or exudate noted. Tonsils nonenlarged, uvula midline. Neck- supple, no adenopathy, no thyromegaly Lungs- clear to ausculation bilaterally. Normal inspiratory effort, no rhonchi Cardiovascular- regular rate and rhythm. Normal S1 and S2. No S3, S4 or murmurs. Abdomen- soft, + BS in all 4 quadrants, nondistended, nontender no rebound or guarding, no CVA tenderness Rectal/ genital exam- patient declined Extremities- no cyanosis, clubbing, or edema. Skin- no rashes noted. Recent Results (from the past 24 hour(s)) LAB URINALYSIS ROUTINE HOLD CULTURE Collection Time 09/24/12 2:42 PM Result Value Range Urine Type Urine:clean cat Turbidity Clear Clear U Bili Negative Negative Blood Urine Negative Negative Glucose, Qualitative U Negative Neg-30 mg/dL Ketones Negative Negative Leukocyte Esterase Urine Negative Negative Nitrite Urine Negative Negative pH Urine 7.0 5.0 - 8.0 Protein Urine Negative Neg - Trace mg/dL U Specific [place] 1.015 1.005 - 1.030 Urobilinogen Urine Negative Negative Eu/dL LAB COMPLETE BLOOD COUNT-NO DIFF Collection Time 09/24/12 3:06 PM Result Value Range White Blood Cell Count 6.8 3.8 - 11.0 k/cmm Red Blood Cell Count 5.23 4.20 - 5.90 m/cmm Hemoglobin 14.9 13.4 - 17.5 g/dL Hematocrit 42.3 39.0 - 51.0 % Mean Corpuscular Volume 80.9 80.0 - 100.0 fL RDW 13.1 11.0 - 15.0 % Platelet Count 260 140 - 450 k/cmm Assessment/ Plan: Tom was seen today for cough, urinary frequency and rectal bleeding(blood in stools). Diagnoses and associated orders for this visit: Urinary frequency Discussed normal urine results and CBC will perform STD probe and screening for diabetes and kidney functions. Encouraged clear fluids, avoid caffine or alcohol. - Sexually Transmitted Disease Probe URINE (incl. GC and Chlamydia); Future - Creatinine; Future - Hemoglobin A1C Glycosylated; Future Cough Sx x 1 day, afebrile. Likely viral in nature requiring symptomatic care at this time, Abx not warranted. Lungs clear, CXR not warranted. Pt coughed up blood tinged sputum x 1, will continue to monitor.Discussed about contagiousness and disease course. Use ibuprofen and/or Tylenol for fever or pain. Encouraged fluids, rest. Offered to refill albuterol, patient declined stating I won't use it anyways. Discussed warning signs and symptoms which warrant follow-up, patient agrees. Bright red rectal bleeding Likely secondary to constipation. Patient declined exam. I recommended increasing clear fluids and trying Mirilax 1 capful daily until having soft regular BM. If symptoms continue recommended follow-upfor exam and further evaluation. Will check hemoglobin. Patient agrees with the plan. Will call patient with further results and treatment if necessary. RTC p.r.n. if not gradually improving, sooner p.r.n.. The patient was discharged in stable condition. All questions answered. Patientin agreement with the plan. documented in this encounter Plan of Treatment Not on filedocumented as of this encounter Visit Diagnoses Diagnosis Urinary frequency - Primary Cough Bright red rectal bleeding Hemorrhage of rectum and anus documented in this encounter Care Teams Gum Mixer Relationship Specialty Start Date End Date Sim Asher MD PCP - General 07/19/10 02/28/13 [address] [place], [place] [address] documented as of this encounter
--- OUTSIDE RECORDS SUMMARY | 2022-01-14 10:48 | XMS_ITS | Encounter Summary ---
:1990 Author Organization [employer] Address [address] [place] [address] Care Team Providers Name Role Phone Sim Asher MD Primary Care Provider Reason for Visit Reason Comments DEPRESSION Encounter Details Date Type Department Care Team Description 01/30/2013 Office Visit [facility] Jay Hayes, Depression, major, [address] PA-C single episode, [place] [address] [address] (Primary Dx) [phone] [place] [address] Social History Tobacco Use Types Packs/Day Years Used Date Smoking Tobacco: Never Assessed Sex Assigned at Date Recorded Not on file documented as of this encounter Last Filed Vital Signs Vital Sign Reading Time Taken Comments Blood Pressure 122/70 01/30/2013 2:51 PM CDT Pulse 74 01/30/2013 2:51 PM CDT Temperature - - Respiratory Rate - - Oxygen Saturation - - Inhaled Oxygen Concentration - - Weight 111.1 kg (245 lb) 01/30/2013 2:51 PM CDT Height 189.9 cm (6' 2.75) 01/30/2013 2:51 PM CDT Body Mass Index 30.83 01/30/2013 2:51 PM CDT documented in this encounter Patient Instructions Patient InstructionsJay Cho PA-C - 01/30/2013 3:39 PM CDT We'll get the labs noted. We'll start celexa as directed. Advised to get plugged in with a therapistto help also. We can send you to [facility] if it works in your schedule with college - let us know. Discussed the possibility of getting worse, before you get better. Advised to either contact our office, your family, or an ER if you develop a desire to harm self or others. documented in this encounter Progress Notes Jay Cho PA-C - 01/30/2013 3:39 PM CDT Subjective: Patient ID: Tom Eng is a 22 y.o. male. Chief Complaint: HPI Comments: Patient presents today for evaluation of depression. Notes a 2 month history of worsening symptoms. Notes issues with getting out of bed in the morning; reports that he is not excited about things that he feels he should be. He reports no control of happiness, has mood swings. States he is more emotional from a crying standpoint, but he states it doesn't matter anymore. Reports that his father is a shithead for a father. States his father left his mother when he was in 4th grade and they had a divorce shortly thereafter. Notes that he has a touch and go relationship with his biological father. Feels that his step-father is more a father at most points. Notes that his siblings discuss these issues previously regarding his father, but they don't speak about these things much anymore. Denies any suicidal ideation or plan, denies any desire to harm self or others. Does admit to a passive wish. Has been to a therapist in the past, but not with this recent depressive episode. Reports that he is coping by playing video games. Does note that his mother and step dad, his girlfriend and his best friend at school all know. Feels like he has a good network of people surrounding him. Review of Systems Psychiatric/Behavioral: Positive for sleep disturbance, decreased concentration and agitation. Negative for suicidal ideas, hallucinations, behavioral problems, confusion, self-injury and dysphoric mood. The patient is nervous/anxious. The patient is not hyperactive. All other systems reviewed and are negative. Objective: Physical Exam Vitals reviewed. Constitutional: He is oriented to person, place, and time. He appears well- developed and well-nourished. No distress. HENT: Head: Normocephalic and atraumatic. Eyes: Conjunctivae are normal. Neurological: He is alert and oriented to person, place, and time. Skin: Skin is warm and dry. No rash noted. He is not diaphoretic. No erythema. No pallor. Psychiatric: His speech is normal and behavior is normal. Judgment and thought content normal. Cognition and memory are normal. He exhibits a depressed mood. Assessment: Diagnosis (ICD9) and Associated Orders 1. Depression, major, single episode, moderate (HCC) (296.22) citalopram (CELEXA) 20 mg tablet, TSH And Free T4 (FRT4 If TSH Abnorm), Complete Blood Count-No Diff, Vitamin B-12, Vitamin D (In house) Plan: Discussed his current condition today. We'll get the labs noted. We'll start celexa as directed. Advised him to get plugged in with a therapist to help also. We can send him to [facility] if it works in his schedule with [employer] - he'll let us know. Discussed the possibility of getting worse, before he gets better. I advised him to either contact our office if this develops, or his family, or get into an ER if he develops a desire to harm self or others. Follow up in a month for a medication recheck. Spent 25 minutes with the patient of which the entire time was spent discussing depression concepts, medication management and expectations. documented in this encounter Plan of Treatment Not on filedocumented as of this encounter Visit Diagnoses Diagnosis Depression, major, single episode, moder ate (HRC) - Primary Major depressive disorder, single episod e, moderate documented in this encounter Care Teams Entry Processor Relationship Specialty Start Date End Date Sim Asher MD PCP - General 07/19/10 02/28/13 [address], [place] [id number] documented as of this encounter
--- OUTSIDE RECORDS SUMMARY | 2022-01-14 10:48 | XMS_ITS | Encounter Summary ---
:1990 Author Organization [email or web address] Address [address] [place] [address] Care Team Providers Name Role Phone Sim Asher MD Primary Care Provider Reason for Visit Reason Comments LAB RESULTS Encounter Details Date Type Department Care Team Description 09/25/2012 Telephone [facility] Macey Shin LAB RESULTS [id number] [place] [address] Social History Tobacco Use Types Packs/Day Years Used Date Smoking Tobacco: Never Assessed Sex Assigned at Date Recorded Not on file documented as of this encounter Nursing Notes Shu June - 09/25/2012 3:24 PM CDT Received phone call from pt. Instructed, per Macey Peralta PA-C, kidney functions normal, hemoglobin A1c (diabetes marker) 5.5% normal. No concerns for diabetes, STD probe still pending. Pt verbalized understanding. No questions or concerns at this time. Jasmyn Joyner - 09/25/2012 3:21 PM CDT Pt calling back Prem Andino - 09/25/2012 2:20 PM CDT Called and left message with patient to call back for lab results. Call back [phone] and ask for nurse triage. Shu June - 09/25/2012 1:06 PM CDT Message copied by SHU JUNE on MonSep 25, 2012 1:06 PM ------ Message from: MACEY PERALTA Created: MonSep 25, 2012 12:28 PM Please call patient kidney functions normal, hemoglobin A1c (diabetes marker) 5.5% normal. No concerns for diabetes, STD probe still pending. ------ documented in this encounter Plan of Treatment Not on filedocumented as of this encounter Visit Diagnoses Not on filedocumented in this encounter Care Teams Sales Promoter Relationship Specialty Start Date End Date Sim Asher MD PCP - General 07/19/10 02/28/13 [address] [place] [address] documented as of this encounter
--- OUTSIDE RECORDS SUMMARY | 2022-01-14 10:48 | XMS_ITS | Encounter Summary ---
:1990 Author Organization [employer] Address [address] [place] [address] Care Team Providers Name Role Phone Jay Cho PA-C Primary Care Provider Encounter Details Date Type Department Care Team Description 02/25/2016 Lab Visit [facility] Screening cholesterol level; [email or web address] Screening for diabetes smitha dasilva (DM) [place] [id number] Social History Tobacco Use Types Packs/Day Years [...] encounter Procedures Procedure Name Priority Date/Time Associated Diagnosis Comme nts LIPID PANEL AND Routine 02/25/2016 4:07 PM Screening Result s for this DIRECT LDL(IF ENGINE SETTER cholesterol level procedure are in NEEDED) the results section. GLUCOSE - FASTING > Routine 02/25/2016 4:07 PM Screening for R esults for this 8 HRS FASTING ENGINE SETTER diabetes mellitus procedure are in (DM) the results section. documented in this encounter Results Glucose (02/25/2016 4:07 PM ENGINE SETTER) athologist Signature Lab Glucose 89 60 - 100 PN SOFT mg/dL Specimen Anatomical Collection Method Collection Time Receive d Time (Source) Location / / Volume Laterality 02/25/2016 4:07 PM 6 8:10 ENGINE SETTER PM ENGINE SETTER Narrative PN SOFT - 02/25/2016 8:34 PM ENGINE SETTER Performed at [facility] [address] [place] [address] CLIA number [id number] Jay Cho PA-C LAB_1 Performing Organization Address [facility] Phon e Number PN SOFT [address] [place] [address] [phone] (ABNORMAL) Lipid Panel - LDLD If Trig High (02/25/2016 4:07 PM ENGINE SETTER) [facility] Method Time Signature Cholesterol 172 0 - 199 PN SOFT mg/dL Triglycerides 155 (H) 4 - 149 PN SOFT mg/dL HDL Cholesterol 46 >39 mg/dL PN SOFT Cholesterol/HDL 3.7 PN SOFT Ratio Screen LDL Calculated 95 19 - 130 PN SOFT mg/dL Length Of Fast 4.0 PN SOFT Specimen Anatomical Collection Method Collection Time Receive d Time (Source) Location / / Volume Laterality 02/25/2016 4:07 PM 6 8:10 ENGINE SETTER PM ENGINE SETTER Narrative PN SOFT - 02/25/2016 8:34 PM ENGINE SETTER Performed at [facility], [facility] [address] [place] [address] CLIA number [id number] Jay Cho PA-C LAB_1 Performing Organization Address [facility] Phon e Number PN SOFT [address] [place] [address] documented in this encounter Visit Diagnoses Diagnosis Screening cholesterol level Screening for lipoid disorders Screening for diabetes mellitus (DM) Screening for diabetes mellitus documented in this encounter Care Teams Ruling Machine Feeder Relationship Specialty Start Date End Date Jay Cho PA-C PCP - General 03/01/13 09/19/16 [address] [place] [address] documented as of this encounter
--- OUTSIDE RECORDS SUMMARY | 2022-01-14 10:48 | XMS_ITS | Encounter Summary ---
:1990 Author Organization [employer] Address [address] [place] [address] Care Team Providers Name Role Phone Jay Cho PA-C Primary Care Provider Reason for Visit Reason Comments Patient Calling Back Encounter Details Date Type Department Care Team Description 08/02/2013 Telephone [facility] Jay [place] PA-C Patient Calling Back [address] [place] [address] [place] [address] [phone] (Wo rk) Social History Tobacco Use Types Packs/Day Years Used Date Smoking Tobacco: Never Assessed Sex Assigned at Date Recorded Not on file documented as of this encounter Nursing Notes Karina Charles MA - 08/14/2013 11:34 AM CDT PHQ 9 is 3 Hermelinda Bell RN - 08/07/2013 3:59 PM CDT pt calling back. Phone transfer to Karina Anjana Alfred - 08/07/2013 3:51 PM CDT Non -Symptom Message from Front Line Primary Care Provider: Jay Cho Message: Patient calling for triage message. Karina Charles MA - 08/02/2013 11:26 AM CDT LMTC and do PHQ 9 documented in this encounter Plan of Treatment Not on filedocumented as of this encounter Visit Diagnoses Not on filedocumented in this encounter Care Teams Long Line Teamster Relationship Specialty Start Date End Date Jay Cho PA-C PCP - General 03/01/13 09/19/16 [address] [place], [place] [address] documented as of this encounter
--- OUTSIDE RECORDS SUMMARY | 2022-01-14 10:48 | XMS_ITS | Encounter Summary ---
:1990 Author Organization [employer] Address [address] [place] [address] Care Team Providers Name Role Phone Jay Cho PA-C Primary Care Provider Reason for Visit Reason Comments Refill Encounter Details Date Type Department Care Team Description 03/06/2013 Office Visit [facility] Jay Cho, Major depressive [address] PA-C disorder, [place] [address] episode, moderate [phone] [place] [address] (Primary Dx) Social History Tobacco Use Types Packs/Day Years Used Date Smoking Tobacco: Never Assessed Sex Assigned at Date Recorded Not on file documented as of this encounter Last Filed Vital Signs Vital Sign Reading Time Taken Comments Blood Pressure 112/70 03/06/2013 1:47 PM [facility] HAND Pulse 72 03/06/2013 1:47 PM [facility] Temperature - - Respiratory Rate - - Oxygen Saturation - - Inhaled Oxygen Concentration - - Weight 112.5 kg (248 lb) 03/06/2013 1:47 PM [facility] HAND Height - - Body Mass Index 31.21 01/30/2013 2:51 PM CDT documented in this encounter Patient Instructions Patient InstructionsJay Cho PA-C - 03/06/2013 2:31 PM CST Increase the dose of celexa to 30 mg (1.5 tabs daily). If this doesn't seem to help in 2 weeks - we'll consider switching to lexapro. Contact the office in 2 weeks and we'll do a PHQ-9 over the phone and see how he is doing. HAND documented in this encounter Progress Notes Jay Cho PA-C - 03/06/2013 2:32 PM CST Subjective: Patient ID: Tom Eng is a 22 y.o. male. Chief Complaint: HPI Comments: Patient presents today for a recheck of his depression. He notes that he is doing muchbetter with this medication. Hasn't noticed any side effects, per his report. He denies any suicidalideation or plan, denies any desire to harm self or others. Denies any passive wish. He does admit to some continuing fatigue. Hasn't been taking vitamin D3 as noted on his lab letter. Review of Systems All other systems reviewed and are negative. [...] not diaphoretic. No erythema. No pallor. Psychiatric: He has a normal mood and affect. His behavior is normal. Assessment: Diagnosis (ICD9) and Associated Orders 1. Major depressive disorder, single episode, moderate (HCC) (296.22) Plan: Discussed his current condition today. At this point, I advised that he increases the dose of the celexa, taking 1.5 tabs daily and see how he does over the next couple of weeks. May need to move it to30mg jail (3 tabs of the 10mg dose per day). If this doesn't work, we may need to switch him tolexapro instead. He'll let us know how he is doing in couple of weeks. Spent 15 minutes with the patient of which all of it was spent in consultation, regarding medication management. HAND documented in this encounter Plan of Treatment Not on filedocumented as of this encounter Visit Diagnoses Diagnosis Major depressive disorder, single episod e, moderate (HRC) - Primary Major depressive disorder, single episod e, moderate documented in this encounter Care Teams Buttermaker Relationship Specialty Start Date End Date Jay Cho PA-C PCP - General 03/01/13 09/19/16 [address] [place] [address] documented as of this encounter
--- OUTSIDE RECORDS SUMMARY | 2022-01-14 10:48 | XMS_ITS | Encounter Summary ---
:1990 Author Organization [employer] Address [address] [place] [address] Care Team Providers Name Role Phone Jay Cho PA-C Primary Care Provider Reason for Referral Consult/Transfer Care (Routine) - Incomplete Specialty Diagnoses / Procedures Referred By Contact Refer red To Contact Diagnoses Adjustment reaction with anxiety and depression (HRC) Jay Cho PA-C [address] [place] [address] Referral ID Status Reason Start Date Expiration Date Visits V isits Requested Authorized [id number] Incomplete 02/25/2016 05/26/2017 1 1 Scheduling Instructions Your provider has recommended an appoint ment with Behavioral Health. You may call [phone] to schedule your appointmen t. This recommended service/s may not be covered by your health plan (health insu babak). To find out your specific benefit coverage, please call the number on your insurance card. Please note that in order to maintain access for all patients, [facility] does have a late cancellation policy. Appointments should be cancelled at least 24 hours in advance. We request you that you arrive 30 minutes before your f irst appointment to complete paperwork. PSYCHOTHERAPIST Reason for Visit Reason Comments Annual Exam depression Encounter Details Date Type Department Care Team Description 02/25/2016 Office Visit Jay Kong, Routine physical examination (Primary Dx); Luna Devika Schwab PA-C Adjustment reaction with anxiety and dep ression; [place] [id number] [address] Screening cholesterol level; [phone] [place] [address] Screening for diabetes mellitus (DM) Social History Tobacco Use Types Packs/Day Years [...] Sign Reading Time Taken Comments Blood Pressure 112/66 02/25/2016 3:38 PM ART PSYCHOTHERAPIST Pulse 68 02/25/2016 3:38 PM ART PSYCHOTHERAPIST Temperature - - Respiratory Rate - - Oxygen Saturation - - Inhaled Oxygen Concentration - - Weight 114.3 kg (252 lb) 02/25/2016 3:38 PM ART PSYCHOTHERAPIST Height 190.5 cm (6' 3) 02/25/2016 3:38 PM ART PSYCHOTHERAPIST Body Mass Index 31.5 02/25/2016 3:38 PM ART PSYCHOTHERAPIST documented in this encounter Progress Notes Jay Cho PA-C - 02/25/2016 3:46 PM CST Preventive Exam Chief Complaint/History of Present Illness: Patient is a 25 y.o. male that presents for a routine physical examination today. Patient is not fasting today. He also reports the following concerns: Depression - Had been on medication in the past and feels that things are still rough. Notes he has difficulty with motivation, work stressors, difficulty getting out of bed. Notes it is not as bad as it was about two years ago. Denies any desire to harm self or others, denies any suicidal ideation or plan, denies any passive wish. Does have a sensation that he would be better off intermittently once every few weeks. Had been on citalopram back in 2012 - 2013 and notes it worked well, however, my anxiety wouldn't let him call back for refills. Preventive Health Assessment: Preventive Health screen was reviewed and updated today in [facility]. Colonoscopy or sigmoidoscopy: was not indicated, under age 50 y.o. Reports utilizing sunscreen frequently while outdoors Immunization status: up to date and documented Past Medical History: Patient's active medical problems were reviewed and updated in [facility]. Past Medical History Diagnosis Date ??? Asthma NOS 11/24/2004 Trigger: Swimming.Running.URI. [id number] Adverse Drug Reactions: Allergies Allergen Reactions ??? Latex PN: Converted from LW Latex Sensitivity Flag ??? Other PN: LW Other1: -LATEX ??? Penicillins PN: LW Reaction: Rash, Generalized ??? Review Contrast Media PN: LW CM1: >>> NO CONTRAST ADVERSE REACTION <<< Reaction : ??? Review Food Intolerance PN: LW FI1: bananas, cantalope, kiwi LW FI2: bananas, cantalope, kiwi Current Medications: Reviewed today and updated in [facility] Med List. Outpatient Prescriptions Prior to Visit Medication Sig Dispense Refill ??? citalopram (AKA CELEXA) 20 MG tablet Take 30 mg by mouth daily (every 24 hours). Indications: DEPRESSION ASSOCIATED WITH MANIC DEPRESSIVE DISORDER No facility-administered medications prior to visit. Family History: Family History Problem Relation Age of Onset ??? Cancer Maternal Grandfather ??? Heart Disease Maternal Grandfather ??? Mental Disorder Father ??? Anxiety Father ??? Depression Father ??? Anxiety Mother ??? Depression Mother ??? Anxiety Sister Social History: Social History Social History ??? Marital Status: Single Spouse Name: N/A ??? Number of Children: 0 ??? 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 Smoking status: Never Smoker ??? Smokeless tobacco: Never Used ??? Alcohol Use: 7.2 oz/week 12 Cans of beer per week Comment: Tends to be socially ??? Drug Use: No ??? Sexual Activity: Partners: Female Control/ Protection: Condom Other Topics Concern ??? Bike Helmet No ??? City Water No ??? Exercise No ??? Guns In Home No ??? Seat Belt No ??? Special Diet No ??? Weight Concern No Social History Narrative Immunization: Immunization History Administered Date(s) Administered ??? DTaP 07/23/1997 ??? DTaP/Hib 1992, 1992, 03/24/1993, 12/11/1993 ??? Flu Vac Preserv Free (3+yrs) 02/28/2007 ??? HepA Ped/Adol (1-18 yrs) 08/14/2006, 10/08/2007 ??? HepB Ped/Adol (0-19 yrs) 11/24/2004, 04/13/2005, 09/09/2005 ??? Influenza (Fluarix or Fluzone 0.5, 3+ yrs) 01/30/2016 ??? MCV4 (Menactra) 08/14/2006, 11/29/2010 ??? MMR 12/11/1993, 07/23/1997 ??? OPV 1992, 1992, 12/08/1993, 07/23/1997 ??? TDAP (ADACEL) 11/29/2010 ??? Td 10/02/2003 ??? Varicella 01/15/2001, 10/08/2007 Review of Systems: General: negative HEENT: negative Pulmonary: No cough, sputum, or hemoptysis, No wheezing, No shortness or breath and No recent changein breathing Cardiac: Patient denies chest pain, palpitations, irregular heart beat, murmur, dyspnea, orthopnea and swelling GI: Normal BM's, denies hematochezia, melena or pain., Denies nausea, vomiting or diarrhea., Pt has never had a colonoscopy or flexible sigmoidoscopy : Denies dysuria, frequency, urgency, incontinence, erectile dysfunction. Neurological: Denies any headaches, tremors, dizziness, vertigo, memory loss, confusion, weakness, numbness or tingling. Musculoskeletal: Denies any joint swelling, joint pain, or loss of range of motion., Denies back pain. Vascular: Denies phlebitis, varicosities, claudication, or cramping. Endocrine: No heat intolerance, No cold intolerance, No thyroid trouble, No excessive thirst or urination and No history of diabetes Hematologic: there is no easy bleeding or bruising Dermatologic: Denies rashes, changed moles, dryness, pruritus, lumps, or pigment changes. Psychiatric: Denies any sleeping problems, history of abuse, marital discord. OBJECTIVE: Vital Signs: BP 112/66 mmHg Pulse 68 Ht 6' 3 (1.905 m) Wt 252 lb (114.306 kg) BMI 31.50 kg/m2 General: Patient alert and oriented x3 in no acute distress. Well-developed, well-nourished 25 y.o. male who appears his stated age. Skin: no rashes, no ecchymoses, no petechiae, no nodules, no jaundice, no purpura, no wounds, no acanthosis nigricans, no striae Head: Normocephalic, atraumatic Eyes: conjunctivae/corneas clear. PERRL, EOM's intact. Fundi benign Ears: normal TMs bilaterally, normal canals bilaterally Nose: Nares normal. Septum midline. Mucosa normal. No drainage. Throat: no erythema or exudates noted. Teeth and gums normal. Neck: supple, no adenopathy and thyroid normal in size, no nodules or tenderness CV: Heart sounds are normal. Regular rate and rhythm without murmur, gallop or rub. Resp: clear to auscultation and percussion bilaterally with normal respiratory effort Abdomen: abdomen is soft without significant tenderness, masses, organomegaly or guarding Lymphatic: Cervical, supraclavicular, and axillary nodes normal. Musculoskeletal: Spine ROM normal. Muscular strength intact. Neuro: Alert and oriented X 3, normal strength and tone. Normal symmetric reflexes. Normal coordination and gait Genitalia: Deferred Rectal: Deferred Psychiatric: Alert and oriented, appropriate affect. He is somewhat flat affect today. Notes periodsof depression and anxiety as noted above and on the KATALINA-7 ad PHQ-9 scores in the chart. ASSESSMENT: ICD-10-CM 1. Routine physical examination Z00.00 2. Adjustment reaction with anxiety and depression (HRC) F43.23 Behavioral Health Adult/Peds citalopram (CELEXA) 20 MG tablet 3. Screening cholesterol level Z13.220 Lipid Panel - LDLD If Trig High 4. Screening for diabetes mellitus (DM) Z13.1 Glucose Immunizations reviewed and updated. See Problem List Patient Active Problem List Diagnosis ??? Asthma (HRC) ??? Closed fracture of radius ??? Concussion with no loss of consciousness ??? Adjustment reaction with anxiety and depression (HRC) Declines STD screening today. PLAN: We discussed the patient's current condition today. Discussed specifically eating a well balanced diet including minimizing simple carbohydrates (soda, baked goods, candy, etc). Also discussed integrating regular exercise into his life. We will notify the patient of the lab results as they become available. We'll start him back on citalopram as noted. Discussed typical side effect profile and risks, benefits and alternatives to medication treatment. He notes he'd also like to do some counseling and I placed the referral for him. Follow-up in 1 year for a physical examination. He'll come back in a month for a medication recheck - sooner if needed. Spent 15 minutes with the patient outside the normal parameters of an annual physical examination discussing his depression/anxiety, and constructing a treatment plan including medication and referral for counseling PSYCHOTHERAPIST documented in this encounter Plan of Treatment Scheduled Referrals Name Type Priority Associated Diagnoses Order [facility] Referral Routine Adjustment reaction Ord ered: 02/25/2016 Adult/Peds with anxiety and depression documented as of this encounter Results Glucose (02/25/2016 4:07 PM ART PSYCHOTHERAPIST) athologist Signature Lab Glucose 89 60 - 100 PN SOFT mg/dL Specimen Anatomical Collection Method Collection Time Receive d Time (Source) Location / / Volume Laterality 02/25/2016 4:07 PM 6 8:10 ART PSYCHOTHERAPIST PM ART PSYCHOTHERAPIST Narrative PN SOFT - 02/25/2016 8:34 PM ART PSYCHOTHERAPIST Performed at [facility], [address] [place] [address] CLIA number [id number] Jay Cho PA-C LAB_1 Performing Organization Address City/State/ZIP Code Phon e Number PN SOFT [address] [place], [place] [address] [phone] (ABNORMAL) Lipid Panel - LDLD If Trig High (02/25/2016 4:07 PM ART PSYCHOTHERAPIST) [facility] gist Method Time Signature Cholesterol 172 0 - [...] Volume Laterality 02/25/2016 4:07 PM 6 8:10 ART PSYCHOTHERAPIST PM ART PSYCHOTHERAPIST Narrative PN SOFT - 02/25/2016 8:34 PM ART PSYCHOTHERAPIST Performed at [facility], [address] [facility], [place] [address] CLIA number [id number] Jay Cho PA-C LAB_1 Performing Organization Address City/State/ZIP Code Phon e Number PN SOFT [address] [place] [address] [phone] documented in this encounter Visit Diagnoses Diagnosis Routine physical examination - Primary Routine general medical examination at a health care facility Adjustment reaction with anxiety and dep ression (HRC) Adjustment disorder with mixed anxiety a nd depressed mood Screening cholesterol level Screening for lipoid disorders Screening for diabetes mellitus (DM) Screening for diabetes mellitus Screening cholesterol level Screening for lipoid disorders Screening for diabetes mellitus (DM) Screening for diabetes mellitus documented in this encounter Care Teams Sales Representatives Relationship Specialty Start Date End Date Jay Cho PA-C PCP - General 03/01/13 09/19/16 [address] [place], [place] [id number] documented as of this encounter
--- OUTSIDE RECORDS SUMMARY | 2022-01-14 10:48 | XMS_ITS | Encounter Summary ---
:1990 Author Organization [employer] Address [address] [place] [address] Care Team Providers Name Role Phone Sim Asher MD Primary Care Provider Reason for Visit Reason Comments LAB RESULTS Encounter Details Date Type Department Care Team Description 09/26/2012 Telephone [facility] Macey Shin LAB RESULTS [id number] [place] [address] Social History Tobacco Use Types Packs/Day Years Used Date Smoking Tobacco: Never Assessed Sex Assigned at Date Recorded Not on file documented as of this encounter Nursing Notes Renita Judd RN - 09/26/2012 11:29 AM CDT Patient notified of lab results. Shu June - 09/26/2012 10:28 AM CDT Message copied by SHU JUNE on MonSep 26, 2012 10:28 AM ------ Message from: MACEY PERALTA Created: MonSep 26, 2012 10:25 AM Please call patient STD probe GC/CT negative ------ documented in this encounter Plan of Treatment Not on filedocumented as of this encounter Visit Diagnoses Not on filedocumented in this encounter Care Teams Metallurgical Analyst Relationship Specialty Start Date End Date Sim Asher MD PCP - General 07/19/10 02/28/13 [address] [place], [place] [id number] documented as of this encounter
--- OUTSIDE RECORDS SUMMARY | 2022-01-14 10:48 | XMS_ITS | Encounter Summary ---
:1990 Author Organization [employer] Address [address] [place] [address] Care Team Providers Name Role Phone Jay Cho PA-C Primary Care Provider Reason for Visit Reason Comments PHQ9 Encounter Details Date Type Department Care Team Description 05/10/2013 Telephone [place] [facility] Medicin e Jay Cho PA-C PHQ9 [address] [place] [address] [place] [address] [phone] (Wo rk) Social History Tobacco Use Types Packs/Day Years Used Date Smoking Tobacco: Never Assessed Sex Assigned at Date Recorded Not on file documented as of this encounter Nursing Notes Karina Charles MA - 05/22/2013 10:37 AM CST PHQ 9 score is 4 TE ADVISOR Karina Charles MA - 05/10/2013 10:18 AM CST LMTC and do PHQ 9 TE ADVISOR documented in this encounter Plan of Treatment Not on filedocumented as of this encounter Visit Diagnoses Not on filedocumented in this encounter Care Teams Line Supervisor Relationship Specialty Start Date End Date Jay Cho PA-C PCP - General 03/01/13 09/19/16 [address] [place] [address] documented as of this encounter
--- OUTSIDE RECORDS SUMMARY | 2022-01-14 10:48 | XMS_ITS | Encounter Summary ---
:1990 Author Organization [employer] Address [address] [place] [address] Care Team Providers Name Role Phone Sim Asher MD Primary Care Provider Encounter Details Date Type Department Care Team Description 01/30/2013 Lab Visit [place] [facility] Depression, major, single [address] episode, moderate [place] [id number] Social History Tobacco Use Types Packs/Day Years Used Date Smoking Tobacco: Never Assessed Sex Assigned at Date Recorded Not on file documented as of this encounter Plan of Treatment Not on filedocumented as of this encounter Procedures Procedure Name Priority Date/Time Associated Diagnosis Comme nts TSH AND FREE T4 Routine 01/30/2013 3:39 PM Depression, major, Results for this (FRT4 IF TSH CDT single episode, procedure ar e in ABNORM) moderate (HRC) the results section. VITAMIN D Routine 01/30/2013 3:39 PM Depression, major, Res ults for this 25-HYDROXY, TOTAL CDT single episode, procedu re are in moderate (HRC) the results section. COMPLETE BLOOD Routine 01/30/2013 3:39 PM Depression, major, R esults for this COUNT-NO DIFF CDT single episode, procedure a re in moderate (HRC) the results section. VITAMIN B12 ONLY Routine 01/30/2013 3:39 PM Depression, major, Results for this CDT single episode, procedure ar e in moderate (HRC) the results section. documented in this encounter Results Vitamin D 25-Hydroxy, Total (01/30/2013 3:39 PM CDT) P athologist Signature Vitamin D 25 Oh 33 20 - 80 HP CONVERSION ng/mL Comment: Deficiency = <20 Adequate ??= 20-29 Preferred = 30-50 Uncertain safety = 51-80 High = >80 Specimen Anatomical Collection Method Collection Time Receive d Time (Source) Location / / Volume Laterality 01/30/2013 3:39 PM 3 9:43 CDT PM CDT Jay Cho PA-C LAB_1 Performing Organization Address City/[facility] Code Phon e Number HP CONVERSION B12 Only (01/30/2013 3:39 PM CDT) athologist Signature Vitamin B12 661 211 - 911 HP CONVERSION pg/dL Specimen Anatomical Collection Method Collection Time Receive d Time (Source) Location / / Volume Laterality 01/30/2013 3:39 PM 3 9:42 CDT PM CDT Jay GUNNC LAB_1 Performing Organization Address [facility] Phon e Number HP CONVERSION Complete Blood Count-No Diff (01/30/2013 3:39 PM CDT) athologist Signature White Blood Cell 6.6 3.8 - 11.0 HP CONVERSIO N Count k/cmm Red Blood Cell 5.52 4.20 - HP CONVERSION Count 5.90 m/cmm Hemoglobin 15.9 13.4 - HP CONVERSION 17.5 g/dL Hematocrit 44.9 39.0 - HP CONVERSION 51.0 % Mean Corpuscular 81.3 80.0 - HP CONVERSION Volume 100.0 fL RDW 13.1 11.0 - HP CONVERSION 15.0 % Platelet Count 246 140 - 450 HP CONVERSION k/cmm Specimen Anatomical Collection Method Collection Time Receive d Time (Source) Location / / Volume Laterality 01/30/2013 3:39 PM 3 3:39 CDT PM CDT Narrative HP CONVERSION - 01/30/2013 3:47 PM CDT Performed at [facility], [address] [place] [address] Jay Cho PA-C LAB_1 Performing Organization Address [facility] Phon e Number HP CONVERSION TSH AND FREE T4 (FRT4 IF TSH ABNORM) (01/30/2013 3:39 PM CDT) P athologist Signature Thyroid 1.06 0.20 - HP CONVERSION Stimulating 4.50 mIU/L Hormone Specimen Anatomical Collection Method Collection Time Receive d Time (Source) Location / / Volume Laterality 01/30/2013 3:39 PM 3 9:42 CDT PM CDT Jay Mainor Maruqis REYES LAB_1 Performing Organization Address City/State/ZIP Code Phon e Number HP CONVERSION documented in this encounter Visit Diagnoses Diagnosis Depression, major, single episode, moder ate (HRC) Major depressive disorder, single episod e, moderate documented in this encounter Care Teams Dressing Room Attendant Relationship Specialty Start Date End Date Sim Asher MD PCP - General 07/19/10 02/28/13 [address] [place], [place] [address] documented as of this encounter
--- OUTSIDE RECORDS SUMMARY | 2022-01-14 10:49 | XMS_ITS | Encounter Summary ---
:1990 Author Organization [employer] Address [address] [address] Care Team Providers Name Role Phone Javier Azevedo MD Primary Care Provider Encounter Details Date Type Department Care Team Description 07/20/2009 Office Visit [facility] Javier Azevedo MD [facility] [address] [facility] [place] [address] [place] [address] [phone] (Wo rk) Social History Tobacco Use Types Packs/Day Years Used Date Smoking Tobacco: Never Assessed Sex Assigned at Date Recorded Not on file documented as of this encounter Last Filed Vital Signs Vital Sign Reading Time Taken Comments Blood Pressure 104/64 07/20/2009 10:07 AM CDT Pulse 56 07/20/2009 10:07 AM CDT Temperature - - Respiratory Rate - - Oxygen Saturation - - Inhaled Oxygen Concentration - - Weight 102 kg (224 lb 15.7 oz) 07/20/2009 10:07 AM C: 1 02.1kg CDT Height 191.1 cm (6' 3.25) 07/20/2009 10:07 AM C: 191.1 cm CDT Body Mass Index 27.94 07/20/2009 10:07 AM CDT Body Mass Index Percentile 94.52 % 07/20/2009 10:07 AM CDT Growth Chart: [facility] (Boys, 2-20 Years) documented in this encounter Progress Notes Javier Azevedo MD - 07/20/2009 12:01 AM CDT Progress Notes signed by Javier Azevedo MD at 07/23/09 1150 Author: Javier Azevedo MD Service: (none) Author Type: Physician Filed: 08/07/100 Note Time: 07/20/092012 Status: Signed Loading Unit Operator Seating: Javier Azevedo MD (Physician) NAME: EDWARD DREW MR#: [id number] ACCT: [id number] VISIT: [id number] DICTATING CLINICIAN: JAVIER AZEVEDO MD CONFIRM #: [id number] LOC: 1703 CLINIC PROGRESS NOTE DATE OF VISIT: 07/20/2009 SUBJECTIVE: 18-year well check plus multiple complaints. Complaints include hyperhidrosis, primarily axillary but also hands and feet to a lesser extent. Also concerned about asthma symptomatology. He does take his inhaler before workouts and 25% of the time after workouts for symptom relief. He was using the inhaler about every other day through last month, and now is using it more frequently as he works out 4 days a week. Also reviewed some acne therapy treatment. He finished his tetracycline 2-3 weeks ago because he ran out, and now his skin seems to be getting worse again. He had used topical agents, but they were quite irritating to the skin, and he elected to continue the tetracycline as the sole treatment, and he has found that to be quite effective. He has been on this medication for over a year, I believe. He sees Dermatology for his treatment. Also updated his chart regarding his fracture in 2002 and his grade 1 concussion in 2008. Sports physical H and P completed, please refer to that for full H and P. He has no other concerns regarding his health other than listed above. No risk factors noted. OBJECTIVE: Per sports H and P. ASSESSMENT: 1. Asthma with increased symptoms here this spring. I am a little concerned about the frequency of his albuterol use. I would like him to keep a record of at for the next month and review an action plan with him in a month. 2. Hyperhidrosis. Did prescribe Drysol with written instructions given regarding its use. Will follow up for that in a month as well. 3. I did refill his doxycycline, but I would like to discuss that with him in a month as well to determine whether he can discontinue the oral antibiotic and we can consider alternative topical therapy. We discussed the possibility of resistance. PLAN: See Assessment. RGS:[id number] C: 07/22/09 08:39 CONFIRM #: [id number] documented in this encounter Plan of Treatment Not on filedocumented as of this encounter Visit Diagnoses Not on filedocumented in this encounter Care Teams Organic Section Technical Lead Relationship Specialty Start Date End Date Javier Azevedo MD PCP - General 07/19/10 02/28/13 [address] [place], [place] [address] documented as of this encounter
--- OUTSIDE RECORDS SUMMARY | 2022-01-14 10:49 | XMS_ITS | Encounter Summary ---
:1990 Author Organization [facility] Address [address] [place] [address] Care Team Providers Name Role Phone Sim Asher MD Primary Care Provider Encounter Details Date Type Department Care Team Description 10/25/2010 Procedure Visit [facility] [address] [place], [place] [id number] Social History Tobacco Use Types Packs/Day Years Used Date Smoking Tobacco: Never Assessed Sex Assigned at Date Recorded Not on file documented as of this encounter Plan of Treatment Not on filedocumented as of this encounter Procedures Procedure Name Priority Date/Time Associated Comments Diagnosis CLOSTRIDIUM DIFF BY Routine 10/26/2010 10:30 Diarrhea Resu lts for this PCR - OUTPATIENT AM CDT procedure a re in the results section. documented in this encounter Results Clostridium Diff by PCR - Outpatient (10/26/2010 10:30 AM CDT) [facility] Method Time Signature Lab N/O Negative HP CONVERSION Clostridium Diff By PCR Comment: Reference range: Not Detected Method Description (BD): ?? Rapid, real- time PCR assay to detect tcdB (the Clostridium difficile toxin B gene) in human liquid or soft stools. Specimen Anatomical Collection Method Collection Time Receive d Time (Source) Location / / Volume Laterality 10/26/2010 10:30 10/27/2010 8:42 AM CDT PM CDT Eddie Weinberg MD LAB_1 Performing Organization Address City/State/ZIP Code Phon e Number HP CONVERSION documented in this encounter Visit Diagnoses Diagnosis Diarrhea - Primary documented in this encounter Care Teams Order Analyst Relationship Specialty Start Date End Date Sim Asher MD PCP - General 07/19/10 02/28/13 [address] [place] [address] documented as of this encounter
--- OUTSIDE RECORDS SUMMARY | 2022-01-14 10:49 | XMS_ITS | Encounter Summary ---
:1990 Author Organization [email or web address] Address [address] [place] [address] Care Team Providers Name Role Phone Sim Asher MD Primary Care Provider Reason for Visit Reason Comments Other Encounter Details Date Type Department Care Team Description 02/24/2009 Telephone [facility], Message Other [address] [place], [place] [id number] Social History Tobacco Use Types Packs/Day Years Used Date Smoking Tobacco: Never Assessed Sex Assigned at Date Recorded Not on file documented as of this encounter Progress Notes Center, Message - 02/24/2009 10:19 AM CST Phone Note filed by [employer] at 08/06/10 1943 Author: [employer] Service: (none) Author Type: (none) Filed: 08/06/10 1644 Note Time: 02/24/09 1019 Status: Signed Garbage Collection Supervisor: [employer] (Resource) Front Line Sx Call Caller Name/Relationship:Eri -mom Primary Project Controller:Alem Symptom or request?Patient's mother is calling requesting to speak to a nurse because patient has been having SUZANNE symptoms this past week but is now having pain when he urinates and she's wondering what to do . Is appointment scheduled & when? no Beverage Steward:Eri Kat call back number:[phone] Is it OK to leave a confidential message on this voicemail? yes *ECODE~PNSX2 Created on 24Feb2009 10:19am by NANI OLMSTEAD E On 24Feb2009 10:26am KATHRYN DISLA wrote: CLINICIAN FOLLOW-UP: none IMPRESSION: Urination Pain Male. SYMPTOMS: Mom calling. 18 year old, having painful urination twice today. No hematuria or flank pain. Pt. has had a low grade fever the past week, under 100, and a cough which is improving. No other symptoms/complaints. Has been drinking plenty of fluids per mom. Denies emergent symptoms Problem List: reviewed in electronic medical record. CARE ADVICE: Per Torsten Hannah:#1,2,3,4. Advised to call back if any of the following occur: symptoms worsen or persist, any other questions or concerns. PLAN: SCHEDULE APPOINTMENT WITHIN 12-24 HOURS Patient/Caller agrees with plan and denies additional questions. References Used: Pediatric Telephone Protocols--Urination Pain Male. Urination Pain Male. Call Complete. *SH~BS~URINEMALE ~ ANICAL ENGINEERING PROFESSOR documented in this encounter Plan of Treatment Not on filedocumented as of this encounter Visit Diagnoses Not on filedocumented in this encounter Care Teams Trimming Machine Operator Relationship Specialty Start Date End Date Sim Asher MD PCP - General 07/19/10 02/28/13 [address] [place], [place] [address] documented as of this encounter
--- OUTSIDE RECORDS SUMMARY | 2022-01-14 10:49 | XMS_ITS | Encounter Summary ---
:1990 Author Organization [employer] Address [address], [place] [address] Care Team Providers Name Role Phone Sim Asher MD Primary Care Provider Encounter Details Date Type Department Care Team Description 06/24/2010 Office Visit [facility] Sim Asher MD [address] [facility] [place] [address] [place] [address] [phone] (Wo rk) Social History Tobacco Use Types Packs/Day Years Used Date Smoking Tobacco: Never Assessed Sex Assigned at Date Recorded Not on file documented as of this encounter Last Filed Vital Signs Vital Sign Reading Time Taken Comments Blood Pressure - - Pulse - - Temperature - - Respiratory Rate - - Oxygen Saturation - - Inhaled Oxygen Concentration - - Weight 108.9 kg (239 lb 15.9 06/24/2010 11:09 AM C: 108 .9kg oz) RADIOGRAPHER Height - - Body Mass Index - - documented in this encounter Progress Notes Sim Asher MD - 06/24/2010 12:01 AM CST NAME: EDWARD DREW MR#: [id number] ACCT: [id number] VISIT: [id number] DICTATING CLINICIAN: Sim Asher MD CONFIRM #: [id number] LOC: 1703 CLINIC PROGRESS NOTE DATE OF VISIT: 06/24/2010 : 1990 CHIEF COMPLAINT: Subacute onset left testicular pain. SUBJECTIVE: Left testicular pain in the last four days. No fever. No vomiting. Seems to be getting worse. Denies swelling, bruising, redness. Occasional dysuria (?); that is to say, with voiding, occasional shaft discomfort. No nighttime waking. Better when he lays on his side and his legs are not together. The pain did began during a weight lifting session when he was doing squats, but he does not recall a sudden onset of pain. He has not done any lifting since then. He continues to have bowel movements, which can feel somewhat uncomfortable. FAMILY HISTORY: Family history, per Edward, is negative for hernia. SOCIAL HISTORY: He has had a total of six sexual partners. His most recent sexual experience was a week ago with vaginal and oral intercourse. His partner is on oral control and he does use a condom for vaginal intercourse only. REVIEW OF SYSTEMS: He has had no discharge from the urethra. No abdominal pain. No back pain. He has no discomfort on testicular raise. OBJECTIVE: : There is no erythema, redness, swelling. Does have quite significant tenderness over the left epididymis, and also has on herniorrhaphy exam quite tender at the inguinal ring, I do sense a fullness there, but nothing certain. ABDOMEN: His abdominal exam is negative. He has no flank mass or tenderness. IMPRESSION/ASSESSMENT: 1. Epididymitis. 2. ? Inguinal hernia. 3. At-risk sexual behavior. PLAN: 1. Doxycycline 100 mg twice daily for 10 days. 2. Con-2 consult request from general surgery, and he has an appointment for tomorrow. 3. Did obtain STD screening labs today. He would prefer the results called to him at his cell phone number of [phone]. He does say that his mother is aware that he is sexually active. On private interview and discussion with his mother, they agreed with the plan and will follow up as instructed p.r.n.. Sooner if worrisome signs or symptoms develop as described. ADDENDUM: They initially had also wanted an acne recheck, but no time for that today. Total time 25 minutes, counseling time as above 13 minutes. RGS:ALIDA C: CONFIRM #: [id number] documented in this encounter Plan of Treatment Not on filedocumented as of this encounter Visit Diagnoses Not on filedocumented in this encounter Care Teams Teasel Setter Relationship Specialty Start Date End Date Sim Asher MD PCP - General 07/19/10 02/28/13 [address] [place], [place] [address] documented as of this encounter
--- OUTSIDE RECORDS SUMMARY | 2022-01-14 10:49 | XMS_ITS | Encounter Summary ---
:1990 Author Organization [employer] Address [address] [place] [address] Care Team Providers Name Role Phone Sim Asher MD Primary Care Provider Reason for Visit Reason Comments Diarrhea Encounter Details Date Type Department Care Team Description 10/25/2010 Nurse Triage [facility] Sim Asher MD Diarrhea [address] [place] [address] [place] [address] [phone] (Wo rk) Social History Tobacco Use Types Packs/Day Years Used Date Smoking Tobacco: Never Assessed Sex Assigned at Date Recorded Not on file documented as of this encounter Nursing Notes Kinza Mejias RN - 10/25/2010 8:50 PM CDT Protocol: [id number] Affirmative: Mild diarrhea (all triage questions negative) Disposition of Home Care suggested. Kinza Mejias RN - 10/25/2010 8:49 PM CDT Mother calls. Son having diarrhea for 2 days up to 8 stools per day. She requests appt with Provider. Appt made. documented in this encounter Plan of Treatment Not on filedocumented as of this encounter Visit Diagnoses Not on filedocumented in this encounter Care Teams Elevator Operator Freight Relationship Specialty Start Date End Date Sim Asher MD PCP - General 07/19/10 02/28/13 [address] [place], [place] [address] documented as of this encounter
--- OUTSIDE RECORDS SUMMARY | 2022-01-14 10:49 | XMS_ITS | Encounter Summary ---
:1990 Author Organization [employer] Address [address] [place] [address] Care Team Providers Name Role Phone Sim Asher MD Primary Care Provider Encounter Details Date Type Department Care Team Description 08/16/2010 PN Conversion Only [facility] Eddie Weinberg MD [facility] [address] [place] [address] [place] [address] [phone] (Wo rk) Social History Tobacco Use Types Packs/Day Years Used Date Smoking Tobacco: Never Assessed Sex Assigned at Date Recorded Not on file documented as of this encounter Plan of Treatment Not on filedocumented as of this encounter Visit Diagnoses Not on filedocumented in this encounter Care Teams Independent Contractor Relationship Specialty Start Date End Date Sim Asher MD PCP - General 07/19/10 02/28/[address] [place] [address] documented as of this encounter
--- OUTSIDE RECORDS SUMMARY | 2022-01-14 10:49 | XMS_ITS | Encounter Summary ---
:1990 Author Organization [facility] Address [address] [place] [address] Care Team Providers Name Role Phone Javier Asher MD Primary Care Provider Encounter Details Date Type Department Care Team Description 07/20/2009 PN Conversion Only [facility] Javier Asher MD [address] [place] [address] [place] [id number] (Wo rk) Social History Tobacco Use Types Packs/Day Years Used Date Smoking Tobacco: Never Assessed Sex Assigned at Date Recorded Not on file documented as of this encounter Plan of Treatment Not on filedocumented as of this encounter Procedures Procedure Name Priority Date/Time Associated Comments Diagnosis URINE MICROSCOPIC Routine 07/20/2009 11:05 Result s for this AM CDT procedure are i n the results section. URINALYSIS Routine 07/20/2009 11:05 Results for this ROUTINE(MICRO IF POS) AM CDT proced ure are in the results section. URINE CULTURE Routine 07/20/2009 11:00 Results fo r this AM CDT procedure are i n the results section. documented in this encounter Results URINE MICROSCOPIC (07/20/2009 11:05 AM CDT) [facility] gist Method Time Signature White Blood None seen 0 - 4 /HPF HP CONVERSION Cells Urine Red Blood 0-2 0 - 2 /HPF HP CONVERSION Cells Urine Specimen (Source) Anatomical Collection Method Collection Time Re ceived Time Location / / Volume Laterality 07/20/2009 11:05 AM CDT Javier Asher MD LAB_1 Performing Organization Address [facility] Phon e Number HP CONVERSION URINALYSIS ROUTINE(MICRO IF POS) (07/20/2009 11:05 AM CDT) [facility] gist Method Time Signature Urine Type Cln catch No normal HP CONVERSION range Turbidity Clear Clear HP CONVERSION U BILI Negative Negative HP CONVERSION Blood Urine Negative Negative HP CONVERSION Glucose, Negative Neg-30 mg/dL HP CONVERSION Qualitative U Ketones Negative Negative HP CONVERSION Leukocyte Negative Negative HP CONVERSION Esterase Urine Nitrite Urine Negative Negative HP CONVERSION pH Urine 6.0 5.0 - 8.0 HP CONVERSION Protein Urine Negative Neg - Trace HP CONVERSION mg/dL U Specific 1.025 1.005 - HP CONVERSION Niwot 1.030 Urobilinogen Negative Negative HP CONVERSION Urine Eu/dL Specimen (Source) Anatomical Collection Method Collection Time Re ceived Time Location / / Volume Laterality 07/20/2009 11:05 AM CDT Javier Asher MD LAB_1 Performing Organization Address [facility] Phon e Number HP CONVERSION Urine Culture (07/20/2009 11:00 AM CDT) Analysis Performed At [facility] logist Time Signature Urine Culture SEE TEXT HP CONVERSION Comment: CUR Culture Urine ? ORDERED BY: JAVIER ASHER SOURCE: Urine Clean Catch ?COLLECTED: ??07/20/09 11:00 ? PLATED: ? 07/20/09 11:16 Culture Urine ?FINAL ? 07/21/09 09:31 No growth Specimen (Source) Anatomical Collection Method Collection Time Re ceived Time Location / / Volume Laterality 07/20/2009 11:00 AM CDT Javier Asher MD LAB_1 Performing Organization Address [facility] Phon e Number HP CONVERSION documented in this encounter Visit Diagnoses Not on filedocumented in this encounter Care Teams Slot Key Person Relationship Specialty Start Date End Date Javier Asher MD PCP - General 07/19/10 02/28/[address] [place] [address] documented as of this encounter
--- OUTSIDE RECORDS SUMMARY | 2022-01-14 10:49 | XMS_ITS | Encounter Summary ---
:1990 Author Organization [employer] Address [address] [place] [address] Care Team Providers Name Role Phone Sim Asher MD Primary Care Provider Encounter Details Date Type Department Care Team Description 10/26/2010 Notes/Orders [facility] Eddie Weinberg, Diarrhea (Primary Dx) [address] [place] [address] [address] [phone] [place] [id number] Social History Tobacco Use Types Packs/Day Years Used Date Smoking Tobacco: Never Assessed Sex Assigned at Date Recorded Not on file documented as of this encounter Plan of Treatment Not on filedocumented as of this encounter Visit Diagnoses Diagnosis Diarrhea - Primary documented in this encounter Care Teams Automotive Salesperson Relationship Specialty Start Date End Date Sim Asher MD PCP - General 07/19/10 02/28/13 [address] [place] [id number] documented as of this encounter
--- OUTSIDE RECORDS SUMMARY | 2022-01-14 10:49 | XMS_ITS | Encounter Summary ---
:1990 Author Organization [employer] Address [address] [place] [address] Care Team Providers Name Role Phone Javier Asher MD Primary Care Provider Encounter Details Date Type Department Care Team Description 06/08/2009 Office Visit [facility] Javier Asher MD [facility] [address] [facility] [place] [address] [place] [address] [phone] (Wo rk) Social History Tobacco Use Types Packs/Day Years Used Date Smoking Tobacco: Never Assessed Sex Assigned at Date Recorded Not on file documented as of this encounter Last Filed Vital Signs Vital Sign Reading Time Taken Comments Blood Pressure - - Pulse 59 06/08/2009 2:26 PM LOCK OPERATOR Temperature 36.7 ??C (98.1 ??F) 06/08/2009 2:26 PM C: 36.7 C LOCK OPERATOR Respiratory Rate - - Oxygen Saturation 100% 06/08/2009 2:26 PM LOCK OPERATOR Inhaled Oxygen Concentration - - Weight 101.6 kg (223 lb 15.8 06/08/2009 2:26 PM C: 101. 6kg oz) LOCK OPERATOR Height - - Body Mass Index - - documented in this encounter Progress Notes Javier Asher MD - 06/08/2009 12:01 AM CST Progress Notes signed by Javier Asher MD at 06/19/09 0942 Author: Javier Asher MD Service: (none) Author Type: Physician Filed: 08/07/102021 Note Time: 06/08/09 0001 Status: Signed Switch Engineer: Javier Asher MD (Physician) NAME: EDWARD DREW MR#: [id number] ACCT: [id number] VISIT: [id number] DICTATING CLINICIAN: JAVIER ASHER MD CONFIRM #: [id number] LOC: 1703 CLINIC PROGRESS NOTE DATE OF VISIT: 06/08/2009 SUBJECTIVE: Asthma concerns. Feels that it is hard to breathe, is having sternal pain. Has had productive mucus cough x2 weeks with stuffy nose. Has not used any inhaler in the last 2 weeks, and he cannot recall the last time he had an asthma flare. He used his inhaler Monday and Monday last week in track. PAST MEDICAL HISTORY: Asthma, and this was reviewed and updated in the chart. OBJECTIVE: VS: T: 98.0. Wt: 224 lb. Pulse oximetry: 100%, room air. He has easy, quiet respirations. He is neither tachypneic, nor dyspneic. Eyes, ears clear. Nose: Positive turbinate inflammation and mucoid discharge. Oropharynx negative. NECK: Negative. CHEST: Clear. No wheezing, rales, or rhonchi. No tachypnea or retractions. Has very equal breath sounds x2. CV: Negative. Though he initially describes sternal pain, he points to his left upper chest as his primary discomfort, and on palpation, had significant costochondral discomfort. ASSESSMENT: Cough variant exacerbation. The cough is quite bronchospastic. Some chest pain related costochondral tenderness from his coughing. PLAN: Described symptomatic care. Refilled albuterol and recommended 2 puffs 3-4 times a day for the next week. Discussed criteria for reassessment. Did obtain chest x-ray, which was unremarkable, though on the left apical region, it appeared to have fewer lung markings than the right but not significantly different from his last chest x-ray, which was reviewed as well. Total time: 25 minutes. Counseling time: 13 minutes, regarding differential diagnosis and recommended course of care. RGS:[id number] C: 06/10/09 12:20 CONFIRM #: [id number] OPERATOR documented in this encounter Plan of Treatment Not on filedocumented as of this encounter Procedures Procedure Name Priority Date/Time Associated Diagnosis Comme nts XR CHEST 2 VIEWS Routine 06/08/2009 2:50 PM Resul ts for this LOCK OPERATOR procedure are i n the results section. documented in this encounter Results XR Chest 2 Views (06/08/2009 2:50 PM LOCK OPERATOR) Anatomical Region Laterality Modality Chest, Lung Other Specimen (Source) Anatomical Location Collection Method / Collectio n Time Received Time / Laterality Volume Narrative 06/08/2009 2:50 PM LOCK OPERATOR COMPARISON: ??04/24/2008 FINDINGS: ??Two views were obtained. ??N o acute change is seen within the lungs and the costophrenic angles ar e clear. ??Heart size and pulmonary vascularity are within normal limits. ??There is no evidence of pneumothorax or pleural effusion. CONCLUSION: ??Stable appearance of the c hest. Dictating HEIDI LATHAM RADIOLOGIST Procedure Note Veronica Farrar - 10/01/2015 COMPARISON: 04/24/2008 FINDINGS: Two views were obtained. No ac qagan tayagungin change is seen within the lungs and the costophrenic angles ar e clear. Heart size and pulmonary vascularity are within normal limits. There is no evidence of pneumothorax or pleural effusion. CONCLUSION: Stable appearance of the hailee st. Dictating HEIDI LATHAM RADIOLOGIST Javier Asher MD RAD GD documented in this encounter Visit Diagnoses Not on filedocumented in this encounter Care Teams Cement Mason Helper Relationship Specialty Start Date End Date Javier Asher MD PCP - General 07/19/10 02/28/13 [address] [place] [address] documented as of this encounter
--- OUTSIDE RECORDS SUMMARY | 2022-01-14 10:49 | XMS_ITS | Encounter Summary ---
:1990 Author Organization [facility] Address [address] [place] [address] Care Team Providers Name Role Phone Sim Asher MD Primary Care Provider Reason for Visit Reason Comments LAB RESULTS Encounter Details Date Type Department Care Team Description 11/05/2010 Telephone [facility] Elvi Ferrara MD LAB RESULTS [address] [place] [address] [place] [address] [phone] (Wo rk) Social History Tobacco Use Types Packs/Day Years Used Date Smoking Tobacco: Never Assessed Sex Assigned at Date Recorded Not on file documented as of this encounter Nursing Notes Karina Charles MA - 11/05/2010 3:42 PM CDT Mom states pt is feeling better. Elvi Ferrara MD - 11/05/2010 3:26 PM CDT Call parents. Stool culture was positive for Salmonella which is a common bacteria you can get from contaminated foods. Usually it does not need to be treated and is self limiting. Check to see if he is still having any symptoms documented in this encounter Plan of Treatment Not on filedocumented as of this encounter Visit Diagnoses Not on filedocumented in this encounter Care Teams Commercial Litigation Associate Relationship Specialty Start Date End Date Sim Asher MD PCP - General 07/19/10 02/28/[address] [place] [address] documented as of this encounter
--- OUTSIDE RECORDS SUMMARY | 2022-01-14 10:49 | XMS_ITS | Encounter Summary ---
:1990 Author Organization [facility] Address [address], [place] [address] Care Team Providers Name Role Phone Sim Asher MD Primary Care Provider Encounter Details Date Type Department Care Team Description 10/14/2009 Office Visit [facility] [place] [address] [place] [address] [place], [place] [phone] (Wo rk) Social History Tobacco Use Types Packs/Day Years Used Date Smoking Tobacco: Never Assessed Sex Assigned at Date Recorded Not on file documented as of this encounter Last Filed Vital Signs Vital Sign Reading Time Taken Comments Blood Pressure 122/70 10/14/2009 2:43 PM CDT Pulse - - Temperature - - Respiratory Rate - - Oxygen Saturation - - Inhaled Oxygen Concentration - - Weight 101.1 kg (222 lb 15.9 10/14/2009 2:43 PM C: 101. 2kg oz) CDT Height 189.2 cm (6' 2.5) 10/14/2009 2:43 PM C: 189.2cm CDT Body Mass Index 28.25 10/14/2009 2:43 PM CDT Body Mass Index Percentile 94.77 % 10/14/2009 2:43 PM CDT Growth Chart: [facility] (Boys, 2-20 Years) documented in this encounter Progress Notes Robbin Martínez MD - 10/14/2009 12:01 AM CDT Progress Notes signed by Robbin Martínez MD at 10/28/09 0920 Author: Robbin Martínez MD Service: (none) Author Type: Physician Filed: 08/07/10 2333 Note Time: 10/14/09 0001 Status: Signed Quilting Supervisor: Robbin Martínez MD (Physician) NAME: EDWARD DREW MR#: [id number] ACCT: [id number] VISIT: [id number] DICTATING CLINICIAN: ROBBIN MARTÍNEZ MD CONFIRM #: [id number] LOC: 514 CLINIC PROGRESS NOTE DATE OF VISIT: 10/14/2009 SUBJECTIVE: Edward is a 19-year-old male who will be going into 12th grade next year, who came in because he went to the [facility] office to look into that program, as he is planning to go to college. 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 Because of a past history of asthma, they told him he had to get testing. Edward tells me today he has not used his inhaler in over 6 months. He thinks he might have gotten it refilled last a year ago. I had only seen him 1 time, which was in 1998 for hives on exposure to gracia water a few times. He had a hospitalization in 02/1994, but according to Dr. Ferrara's note from 07/22/1994 regarding stridor and then some expiratory wheeze, he had ? . A note from Dr. Asher on 07/20/09 notes that he uses inhaler before workouts and sometimes after workouts for symptom relief. No other problems. OBJECTIVE: VS: BP: 122/70. Ht: 74-1/2 in. Wt: 223 lb. Conjunctivae and eyelids normal. Nose slightly congested. Pharynx benign. CHEST: Clear. Normal respiratory effort. Chest clear. Skin testing was not done. Excellent PFT with FVC. 7.12 L, which is 122% of predicted and FEV1 6.10 L, which is 125% of predicted. The FEF 25-75 is 132% of predicted and the FEV1% was 86%. ASSESSMENT: History of asthma. Questions about joining [facility]. PLAN: I gave him a copy of the PFT. He is going to give this to the [facility] office and they will let us know if further evaluation is requested. Total visit time 20 minutes, most of which was spent in counseling and discussion of history of asthma and requirements the [employer] research recruiter might be referring to, etc. DFG:[id number] C: 10/15/09 13:27 CONFIRM #: [id number] documented in this encounter Plan of Treatment Not on filedocumented as of this encounter Visit Diagnoses Not on filedocumented in this encounter Care Teams Construction Project Administrator Relationship Specialty Start Date End Date Sim Asher MD PCP - General 07/19/10 02/28/13 [address] [place] [address] documented as of this encounter
--- OUTSIDE RECORDS SUMMARY | 2022-01-14 10:49 | XMS_ITS | Encounter Summary ---
:1990 Author Organization [facility] Address [address] [place] [address] Care Team Providers Name Role Phone Sim Asher MD Primary Care Provider Reason for Visit Reason Comments Diarrhea Encounter Details Date Type Department Care Team Description 10/26/2010 Office Visit [facility] Eddie Weinberg, Acute diarrhea [address] MD (Primary Dx) [place] [address] [address] [phone] [place] [id number] Social History Tobacco Use Types Packs/Day Years Used Date Smoking Tobacco: Never Assessed Sex Assigned at Date Recorded Not on file documented as of this encounter Last Filed Vital Signs Vital Sign Reading Time Taken Comments Blood Pressure - - Pulse - - Temperature 36.6 ??C (97.9 ??F) 10/26/2010 9:09 AM CDT Respiratory Rate - - Oxygen Saturation - - Inhaled Oxygen Concentration - - Weight 108.9 kg (240 lb) 10/26/2010 9:09 AM CDT Height - - Body Mass Index - - documented in this encounter Progress Notes Eddie Weinberg MD - 10/26/2010 12:00 PM CDT Progress Notes signed by Eddie Weinberg MD at 10/26/10 1257 Author: Eddie Weinberg MD Service: (none) Author Type: Physician Filed: 10/26/10 1257 Note Time: 10/26/10 1200 Status: Signed Cop Examiner: Eddie Weinberg MD (Physician) NAME: RAJENDRA LEON MR#: [id number] CSN: [id number] AUTHENTICATING CLINICIAN: Eddie Weinberg MD CONFIRM #: [id number] LOC: 1703 CLINIC PROGRESS NOTE DATE OF VISIT: 10/26/2010 : 1990 Tom comes in today along with his dad for check on diarrhea. This started 3 days ago. The day before he had eaten a gyro sandwich at a fair. No unusual foods otherwise. The next day started having diarrhea and it worsened 2 days ago on Monday with every 2-hour liquid stool day and night possible slight amount of blood in the stool as well as some headaches. No vomiting. [place] a little nauseated was sweaty and chilled. No one else in the family has been sick otherwise. He does not have history of frequent diarrhea in the past. Sometimes gets a little loose every few months he said but just for a movement or two. Today he is feeling a little bit better. Still some headache. Took some Tylenol this morning but abdomen is feeling better than yesterday and he has had just 1 loose stool today. He did sleep last night without any further stooling. EXAM: Temperature 97.8 weight is 240 pounds. TMS AND PHARYNX: Unremarkable. NECK: Supple. CHEST: Clear. ABDOMEN: Some mild generalized tenderness and left lower quadrant tenderness. No definite rebound. No CVA tenderness. No definite right lower quadrant tenderness. IMPRESSION: Diarrhea possibly food poisoning versus gastroenteritis. PLAN: Because of the possibility of some blood will do stool cultures and C. diff screening CBC today and sed rate. Discussed clear liquids. He is still urinating and feels hydrated. Does not feel dizzy. Call or return if persists or especially if increasing abdominal pain or persisting fever. JW:MEDQ C: CONFIRM #: [id number] documented in this encounter Plan of Treatment Not on filedocumented as of this encounter Visit Diagnoses Diagnosis Acute diarrhea - Primary Diarrhea documented in this encounter Care Teams Loom Starter Relationship Specialty Start Date End Date Sim Asher MD PCP - General 07/19/10 02/28/13 [address] [place] [address] documented as of this encounter
--- OUTSIDE RECORDS SUMMARY | 2022-01-14 10:49 | XMS_ITS | Encounter Summary ---
:1990 Author Organization [facility] Address [address] [place] [address] Care Team Providers Name Role Phone Sim Asher MD Primary Care Provider Encounter Details Date Type Department Care Team Description 10/26/2010 Procedure Visit [facility] [address] [place], [place] [id number] Social History Tobacco Use Types Packs/Day Years Used Date Smoking Tobacco: Never Assessed Sex Assigned at Date Recorded Not on file documented as of this encounter Plan of Treatment Not on filedocumented as of this encounter Procedures Procedure Name Priority Date/Time Associated Comments Diagnosis COMPLETE BLOOD Routine 10/26/2010 9:52 AM Diarrhea Results for this COUNT-W/DIFF CDT procedure are i n the results section. DIFFERENTIAL Routine 10/26/2010 9:52 AM Results f or this CDT procedure are i n the results section. ESR Routine 10/26/2010 9:52 AM Diarrhea Results f or this CDT procedure are i n the results section. VENIPUNCTURE (YASH) Routine 10/26/2010 9:40 AM Diarrhea Re sults for this CDT procedure are i n the results section. documented in this encounter Results (ABNORMAL) Differential (10/26/2010 9:52 AM CDT) [facility] Method Time Signature Absolute 4.5 1.8 - 8.0 HP CONVERSION Neutrophils k/cmm Absolute 1.3 1.1 - 4.0 HP CONVERSION Lymphocytes k/cmm Absolute 1.3 (H) 0.2 - 0.8 HP CONVERSION Monocytes k/cmm Absolute 0.0 0.0 - 0.5 HP CONVERSION Eosinophils k/cmm Absolute 0.0 0.0 - 0.2 HP CONVERSION Basophils k/cmm Specimen Anatomical Collection Method Collection Time Receive d Time (Source) Location / / Volume Laterality 10/26/2010 9:52 AM 1 1:36 CDT PM CDT Eddie Weinberg MD LAB_1 Performing Organization Address City/[facility]/ZIP Code Phon e Number HP CONVERSION ESR (10/26/2010 9:52 AM CDT) [facility] gist Method Time Signature Sedimentation Rate 10 0 - 15 HP CONVERSI ON mm/hr Specimen Anatomical Collection Method Collection Time Receive d Time (Source) Location / / Volume Laterality 10/26/2010 9:52 AM 1 9:52 CDT AM CDT Eddie Weinberg MD LAB_1 Performing Organization Address [facility] Phon e Number HP CONVERSION Hemogram/Plts/Diff (10/26/2010 9:52 AM CDT) athologist Signature White Blood Cell 7.1 3.8 - 11.0 HP CONVERSIO N Count k/cmm Red Blood Cell 5.13 4.20 - HP CONVERSION Count 5.90 m/cmm Hemoglobin 14.6 13.4 - HP CONVERSION 17.5 g/dL Hematocrit 41.9 39.0 - HP CONVERSION 51.0 % Mean Corpuscular 81.7 80.0 - HP CONVERSION Volume 100.0 fL RDW 12.4 11.0 - HP CONVERSION 15.0 % Platelet Count 183 140 - 450 HP CONVERSION k/cmm Specimen Anatomical Collection Method Collection Time Receive d Time (Source) Location / / Volume Laterality 10/26/2010 9:52 AM 1 1:36 CDT PM CDT Eddie Weinberg MD LAB_1 Performing Organization Address City/[facility]/ZIP [facility] Phon e Number HP CONVERSION VENIPUNCTURE (YASH) (10/26/2010 9:40 AM CDT) athologist Signature Venipuncture Done HP CONVERSION Specimen (Source) Anatomical Collection Method Collection Time Re ceived Time Location / / Volume Laterality 10/26/2010 9:40 AM CDT Eddie Weinberg MD LAB_1 Performing Organization Address City/State/ZIP Code Phon e Number HP CONVERSION documented in this encounter Visit Diagnoses Diagnosis Diarrhea - Primary documented in this encounter Care Teams Journeyman Pipe Welder Relationship Specialty Start Date End Date Sim Asher MD PCP - General 07/19/10 02/28/13 [address] [place] [address] documented as of this encounter
--- OUTSIDE RECORDS SUMMARY | 2022-01-14 10:49 | XMS_ITS | Encounter Summary ---
:1990 Author Organization [facility] Address [address] [place] [address] Care Team Providers Name Role Phone Sim Asher MD Primary Care Provider Reason for Visit Reason Comments WELL CHILD EXAM Encounter Details Date Type Department Care Team Description 11/29/2010 Office Visit [facility] Sim Asher, [facility] (well child check); [address] [place] [address] [address] [phone] [address] [id number] Social History Tobacco Use Types Packs/Day Years Used Date Smoking Tobacco: Never Assessed Sex Assigned at Date Recorded Not on file documented as of this encounter Last Filed Vital Signs Vital Sign Reading Time Taken Comments Blood Pressure 104/62 11/29/2010 8:05 AM CDT Pulse 56 11/29/2010 8:05 AM CDT Temperature - - Respiratory Rate - - Oxygen Saturation - - Inhaled Oxygen Concentration - - Weight 108.9 kg (240 lb) 11/29/2010 8:05 AM CDT Height 191.1 cm (6' 3.25) 11/29/2010 8:05 AM CDT Body Mass Index 29.8 11/29/2010 8:05 AM CDT Body Mass Index Percentile 95.87 % 11/29/2010 8:05 AM CD T Growth Chart: [facility] (Boys, 2-20 Years) documented in this encounter Progress Notes Sim Asher MD - 11/29/2010 8:42 AM CDT Subjective: Tom Eng is a 20 y.o. male who was brought in by his self for this well child visit. Mother's name: N/A Father's name: na Interval History: Salmonella 2010. Review of Systems: General ROS: negative Concerns: Current concerns on the part of Brandies include: Recovery from Salmonella is mostly complete (occ nausea), has had a few asthma symptoms over the last year, no longer has acne. Review of Nutrition: adequate dairy, varied table foods including iron and good appetite Elimination: Stools are: soft and regular Sleep: sleeping well through the night Medications: Current Medications: Current outpatient prescriptions:albuterol (PROVENTIL HFA, VENTOLIN HFA) 90 mcg/Actuation inhaler, Inhale 2 puffs every 6 hours as needed for Wheezing., Disp: 2 Inhaler, Rfl: 0; DISCONTD: doxycycline (VIBRA-TABS) 100 mg tablet, Take 1 tablet by mouth 2 times daily., Disp: 20, Rfl: Habits and Concerns: Patients habits and concerns section was reviewed and updated as appropriate. Dental Care: brushing at least daily and regular dental visits Behavioral and Development Screens and Surveillance: Tool: PSC and PHQ-9 Result:wnl for age Family and Social History: Parental coping and self care: doing well; no concerns Anticipated child-care arrangements: At home Family Circumstances: No difficulties Objective: Growth parameters are noted and are appropriate for age. General:active, alert, no distress and interacts appropriately for age Head: normal shape and size Eyes: red reflex normal bilaterally, appear normal and seems to see ENT:Ears: no deformity, normal TM's Neck:normal, full range of motion, no mass, no thyromegaly Chest:normal respiratory effort, lungs clear to auscultation, normal shape, normal breathing pattern Heart:regular rate and rhythm, normal heart sounds, no murmurs Abdomen: normal appearance, soft, non-tender, without organ enlargements, no masses Genitourinary: normal male - testes descended bilaterally, circumcised Musculoskeletal: normal Skin: no rash or lesions Neurologic: non focal, normal strength, normal tone, age-appropriate responsiveness and reflexes, symmetric movements Assessment: Healthy 20 y.o.. Plan: 1. Anticipatory Guidance: Questions and concerns discussed, standard AVS handout given na 2. Vaccinations and Other orders: discussed and given per protocol No orders of the defined types were placed in this encounter. 3. Follow-up visit in 2 years for next well child visit, or sooner as needed. documented in this encounter Plan of Treatment Not on filedocumented as of this encounter Visit Diagnoses Diagnosis WCC (well child check) Routine infant or child health check Unspecified asthma(493.90) (HRC) Unspecified asthma documented in this encounter Care Teams Embosser Apprentice Relationship Specialty Start Date End Date Sim Asher MD PCP - General 07/19/10 02/28/13 [address] [place], [place] [address] documented as of this encounter
--- OUTSIDE RECORDS SUMMARY | 2022-01-14 10:49 | XMS_ITS | Encounter Summary ---
:1990 Author Organization [facility] Address [address] [place] [address] Care Team Providers Name Role Phone Sim Asher MD Primary Care Provider Encounter Details Date Type Department Care Team Description 10/25/2010 Procedure Visit [facility] [address] [place], [place] [id number] Social History Tobacco Use Types Packs/Day Years Used Date Smoking Tobacco: Never Assessed Sex Assigned at Date Recorded Not on file documented as of this encounter Plan of Treatment Not on filedocumented as of this encounter Procedures Procedure Name Priority Date/Time Associated Diagnosis Comme nts STOOL CULTURE Routine 10/25/2010 1:15 PM Diarrhea Results for this CDT procedure are i n the results section . documented in this encounter Results Stool Culture (10/25/2010 1:15 PM CDT) [facility] Method Time Signature Stool Culture HP CONVERSION Stool Culture Salmonella montevides HP C ONVERSION Moderate growth Comment: ? ORDERED BY: RYLAN WEINBERG SOURCE: Stool ?COLLECTED: ??10/25/10 13:15 ? PLATED: ? 10/27/10 15:27 Culture Stool ?FINAL ? 11/05/10 14:54 ? Moderate growth Salmonella montev ides Specimen (Source) Anatomical Collection Method Collection Time Re ceived Time Location / / Volume Laterality Stool: 10/25/2010 1:15 PM CDT Rylan Weinberg MD LAB_1 Performing Organization Address City/State/ZIP Code Phon e Number HP CONVERSION documented in this encounter Visit Diagnoses Diagnosis Diarrhea documented in this encounter Care Teams Escrow Officer Relationship Specialty Start Date End Date Sim Asher MD PCP - General 07/19/10 02/28/13 [address] [place], [place] [address] documented as of this encounter
--- OUTSIDE RECORDS SUMMARY | 2022-01-14 10:49 | XMS_ITS | Encounter Summary ---
:1990 Author Organization [employer] Address [address] [place] [address] Care Team Providers Name Role Phone Javier Azevedo MD Primary Care Provider Reason for Visit Reason Comments Other Encounter Details Date Type Department Care Team Description 06/08/2009 Telephone Javier Coleman MD Other [address] [place] [address] [place] [address] [phone] (Wo rk) Social History Tobacco Use Types Packs/Day Years Used Date Smoking Tobacco: Never Assessed Sex Assigned at Date Recorded Not on file documented as of this encounter Progress Notes Center, Message - 06/08/2009 1:22 PM CST Phone Note filed by [employer] at 08/07/1037 Author: [employer] Service: (none) Author Type: (none) Filed: 08/07/1037 Note Time: 06/08/09 1322 Status: Signed Vulcanizing Machine Operator: [employer] (Resource) Front Line Sx Call Caller Name/Relationship:Sudhir/Dad Primary Airport Planner:[place] Symptom or request?Pt has asthma and is having some pain and shortness of breath. Dad wondering if he should be seen or just use his inhaler Is appointment scheduled & when?n Production Team Advisor:Sudhir Best call back number:[phone] Is it OK to leave a confidential message on this voicemail?y *[id number] Created on 08Jun2009 1:22pm by ARI SCHROEDER On 08Jun2009 1:33pm KATHRYN OLIVER wrote: CLINICIAN FOLLOW-UP: Clinician sign-off required, call managed per protocol by CANDLE POURER. IMPRESSION: Asthma Attack. SYMPTOMS: Dad calling, son has not had problems with asthma in a few years now. His inhaler is . He woke up this morning not feeling well. He stayed home from school. He has been having some pain with inspiration. He is having SOB with activity only. No wheezing. He said his chest feels tight. Denies emergent symptoms Problem List: reviewed in electronic medical record. Allergies: Reviewed/updated in electronic medical record. Medications: Reviewed/updated in electronic medical record. CARE ADVICE: Appt scheduled with Dr. Azevedo today at 2:10pm. Advised to call back if any of the following occur: any other questions or concerns. PLAN: SCHEDULE APPOINTMENT WITHIN 12-24 HOURS -Appt scheduled with Dr. Azevedo today at 2:10pm. Patient/Caller agrees with plan and denies additional questions. References Used: Pediatric Telephone Protocols--Asthma Attack. *SH~BS~ASTHMA ~ Acknowledged by JAVIER AZEVEDO on 1:53pm MANAGER documented in this encounter Plan of Treatment Not on filedocumented as of this encounter Visit Diagnoses Not on filedocumented in this encounter Care Teams Derrick Operator Relationship Specialty Start Date End Date Javier Azevedo MD PCP - General 07/19/10 02/28/[address] [place] [address] documented as of this encounter
--- OUTSIDE RECORDS SUMMARY | 2022-01-14 10:49 | XMS_ITS | Encounter Summary ---
:1990 Author Organization [employer] Address [address], [place] [address] Care Team Providers Name Role Phone Javier Asher MD Primary Care Provider Encounter Details Date Type Department Care Team Description 06/25/2010 Office Visit [facility] 3931 Lindsay Fox MD General Surgery [address] [address] [address] [place] [address] Social History Tobacco Use Types Packs/Day Years Used Date Smoking Tobacco: Never Assessed Sex Assigned at Date Recorded Not on file documented as of this encounter Last Filed Vital Signs Vital Sign Reading Time Taken Comments Blood Pressure 133/60 06/25/2010 9:56 AM EXERCISE EQUIPMENT REPAIR TECHNICIAN Pulse 47 06/25/2010 9:56 AM EXERCISE EQUIPMENT REPAIR TECHNICIAN Temperature - - Respiratory Rate 18 06/25/2010 9:56 AM EXERCISE EQUIPMENT REPAIR TECHNICIAN Oxygen Saturation - - Inhaled Oxygen Concentration - - Weight 108.9 kg (239 lb 15.9 06/25/2010 9:56 AM C: 108. 9kg oz) EXERCISE EQUIPMENT REPAIR TECHNICIAN Height 189.2 cm (6' 2.5) 06/25/2010 9:56 AM C: 189.2cm EXERCISE EQUIPMENT REPAIR TECHNICIAN Body Mass Index 30.4 06/25/2010 9:56 AM EXERCISE EQUIPMENT REPAIR TECHNICIAN Body Mass Index Percentile 96.87 % 06/25/2010 9:56 AM EXERCISE EQUIPMENT REPAIR TECHNICIAN Growth Chart: CDC (Boys, 2-20 Years) documented in this encounter Progress Notes Bhanu Fox MD - 06/25/2010 12:01 AM CST NAME: EDWARD DREW MR#: [id number] ACCT: [id number] VISIT: [id number] DICTATING CLINICIAN: Bhanu Fox MD CONFIRM #: [id number] LOC: 225 CLINIC PROGRESS NOTE DATE OF VISIT: 06/25/2010 : 1990 Edward is a pleasant 19-year-old male who is seen today with his mom accompanying him. 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 He noticed at about the 7th squat a fair amount of pain in the left groin extending down toward the testicle on that side. He has times where it is a dull ache and then occasionally will ramp up to a 9/10 and feel quite sharp. He was just seen yesterday in peds clinic for this. He was thought to possibly have epididymitis and was put on twice-a-day doxycycline. There was some tenderness near the inguinal ring and a question of a possible hernia was reported. Edward does not recall any bulging either on the right or left. Never known to have anything like this in the past. He has curtailed his activities to a degree, but has not taken any pain medication. Has not had any change in his bowel or urinary habits at this point. Outside of this, he is generally healthy. MEDICATIONS: Takes no regular medications other than what was just started. ALLERGIES: He has a sensitivity to penicillin and latex. 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 Nonsmoker, nondrinker. PHYSICAL EXAM: Blood pressure is 130/60, pulse of 47. He is a healthy, athletic-appearing young man. He is seen again today with his mom in attendance. He is alert and oriented x3. He is of athletic build. His groins are examined. There is no obvious asymmetry. The right side is examined first. The testicle and epididymal structures are normal on the right side. There is no hernia. The left side reveals mild tenderness along the epididymis. The testicle itself is not remarkable for any masses. Digital exam in the inguinal canal is limited due to some guarding. No masses are appreciated. I had him Valsalva as best he could and no bulge was appreciated there. He is tender in the adductor region. We had him then onto the bed in the supine position. He had some subjective complaint of tender tenderness with raising his left leg against resistance, as well as some internal rotation of this thigh. The right side was normal. IMPRESSION: Groin pain. PLAN: At this point, I suspect he may have strained an adductor or one of the ligaments in the pelvis with the squats. I do not find any evidence of a hernia. I think ibuprofen and then taking it easy for awhile would be appropriate. He can follow with the assistive technology trainer at school if he would like, but we would offer him physical therapy as an alternative as well. Certainly, this could represent the beginnings of a hernia, but time would tell. I did give them some information about what to look out for in that respect, and his mom and he both seemed comfortable with the discussion and plan. Total time for the visit was about 20 minutes. CC: JAVIER ASHER MD [address] [place] [address] BCG:MEDQ C: CONFIRM #: [id number] documented in this encounter Plan of Treatment Not on filedocumented as of this encounter Visit Diagnoses Not on filedocumented in this encounter Care Teams Artificial Snow Making Machine Operator Relationship Specialty Start Date End Date Javier Asher MD PCP - General 07/19/10 02/[address] [place] [address] documented as of this encounter
--- OUTSIDE RECORDS SUMMARY | 2022-01-14 10:49 | XMS_ITS | Encounter Summary ---
:1990 Author Organization [employer] Address [address] [place] [address] Care Team Providers Name Role Phone Javier Azevedo MD Primary Care Provider Encounter Details Date Type Department Care Team Description 06/24/2010 PN Conversion Only [place] CONVERSION Javier Azevedo MD [address] [place] [address] [place] [id number] (Wo rk) Social History Tobacco Use Types Packs/Day Years Used Date Smoking Tobacco: Never Assessed Sex Assigned at Date Recorded Not on file documented as of this encounter Plan of Treatment Not on filedocumented as of this encounter Procedures Procedure Name Priority Date/Time Associated Comments Diagnosis HIV ANTIBODY Routine 06/24/2010 11:53 Results for this AM TAXONOMIST procedure are i n the results section. RPR BLOOD Routine 06/24/2010 11:53 Results for this AM TAXONOMIST procedure are i n the results section. HEPATITIS A PANEL, Routine 06/24/2010 11:53 Resul ts for this TOTAL + IGM ABYS AM TAXONOMIST procedure a re in the results section. HEPATITIS B SURFACE Routine 06/24/2010 11:53 Resu lts for this ANTIBODY AM TAXONOMIST procedure are i n the results section. HEP B SURFACE Routine 06/24/2010 11:53 Results fo r this ANTIGEN, NO REFLEX AM TAXONOMIST procedure are in the results section. HEPATITIS C ANTIBODY, Routine 06/24/2010 11:53 Re sults for this WITH REFLEX AM TAXONOMIST procedure are i n the results section. HEPATITIS B CORE,AB Routine 06/24/2010 11:53 Resu lts for this AM TAXONOMIST procedure are i n the results section. SEXUALLY TRANSMITTED Routine 06/24/2010 11:45 Res ults for this DISEASE PROBE AM TAXONOMIST procedure are in the results section. documented in this encounter Results RPR BLOOD (06/24/2010 11:53 AM TAXONOMIST) athologist Signature RPR Non Reac Nonreactive HP CONVERSION Specimen (Source) Anatomical Collection Method Collection Time Re ceived Time Location / / Volume Laterality 06/24/2010 11:53 AM TAXONOMIST Javier Azevedo MD LAB_1 Performing Organization Address City/State/ZIP Code Phon e Number HP CONVERSION HIV ANTIBODY (06/24/2010 11:53 AM TAXONOMIST) athologist Signature HIV 1/HIV 2 Non-React Non-Reacti HP CONVERSION ve Specimen (Source) Anatomical Collection Method Collection Time Re ceived Time Location / / Volume Laterality 06/24/2010 11:53 AM TAXONOMIST Javier Azevedo MD LAB_1 Performing Organization Address City/State/ZIP Code Phon e Number HP CONVERSION Hepatitis C Antibody, with Reflex (06/24/2010 11:53 AM TAXONOMIST) Patholo gist Method Time Signature Hepatitis C Non-React Non-Reacti HP CONVERSION Antibody ve Specimen (Source) Anatomical Collection Method Collection Time Re ceived Time Location / / Volume Laterality 06/24/2010 11:53 AM TAXONOMIST Javier Azevedo MD LAB_1 Performing Organization Address City/State/ZIP Code Phon e Number HP CONVERSION Hep B Surface Antigen, No Reflex (06/24/2010 11:53 AM TAXONOMIST) Analysis Performed At Patho logist Time Signature Hep B Surf Ag Negative Negative HP CONVERSION Specimen (Source) Anatomical Collection Method Collection Time Re ceived Time Location / / Volume Laterality 06/24/2010 11:53 AM TAXONOMIST Javier Azevedo MD LAB_1 Performing Organization Address City/[facility]/ZIP Code Phon e Number HP CONVERSION Hepatitis B Surface Antibody (06/24/2010 11:53 AM TAXONOMIST) Analysis Performed At Patho logist Time Signature Hep B Surf Ab Reactive Non-Reacti HP CONVERSION ve Specimen (Source) Anatomical Collection Method Collection Time Re ceived Time Location / / Volume Laterality 06/24/2010 11:53 AM TAXONOMIST Javier Azevedo MD LAB_1 Performing Organization Address City/[facility]/ZIP Code Phon e Number HP CONVERSION Hepatitis B Core Antibody (06/24/2010 11:53 AM TAXONOMIST) [facility] Hepatitis B Negative No normal HP CONVERSION Core Total range Antibody Specimen (Source) Anatomical Collection Method Collection Time Re ceived Time Location / / Volume Laterality 06/24/2010 11:53 AM TAXONOMIST Javier Azevedo MD LAB_1 Performing Organization Address [facility] Phon e Number HP CONVERSION (ABNORMAL) HEPATITIS A PANEL, TOTAL + IGM ABYS (06/24/2010 11:53 AM TAXONOMIST) [facility] Hepatitis A Positive (A) Negative HP CONVERSION Total Antibody Comment: The positive anti-HAV is consistent with recent or remote Hepatitis A infection or antibody respon se to HAV vaccination. Hepatitis A IgM Antibody Negative Negative HP CO NVERSION Hepatitis A Interpretation See Note No normal range HP CONVERSION Comment: The pattern of positive total anti-HAV and negative IgM anti-HAV is consistent with two clinical situations: (1) recovered Hepatitis A infection, or (2) antibody response to HAV vaccination. Performed at [employer] Specimen (Source) Anatomical Collection Method Collection Time Re ceived Time Location / / Volume Laterality 06/24/2010 11:53 AM TAXONOMIST Javier Azevedo MD LAB_1 Performing Organization Address City/[facility] Phon e Number HP CONVERSION Sexually Transmitted Disease Probe (06/24/2010 11:45 AM TAXONOMIST) [facility] Sexually SEE TEXT HP CONVERSION Transmitted Disease Probe Comment: STDPR Sexually Transmitted Disease DNA Probe ? ORDERED BY: JAVIER AZEVEDO SOURCE: Urine for molecular testing ?COLLECTED: ??06/24/10 11:45 ? PLATED: ? 06/24/10 11:46 Chlamydia trachomatis DNA Probe ?FINAL ? 06/25/10 12:45 Chlamydia trachomatis NEGATIVE by DNA a mplification The amplified DNA assay is cleared by [facility] for non-medicolegal diagnostic testing in [facility] adult population. Neisseria gonorrhea DNA Probe ?FINAL ? 06/25/10 12:45 Neisseria gonorrhea NEGATIVE by DNA amp lification. The amplified DNA assay is cleared by [facility] for non-medicolegal diagnostic testing in [facility] adult population. Specimen (Source) Anatomical Collection Method Collection Time Re ceived Time Location / / Volume Laterality 06/24/2010 11:45 AM TAXONOMIST Javier Azevedo MD LAB_1 Performing Organization Address City/State/ZIP Code Phon e Number HP CONVERSION documented in this encounter Visit Diagnoses Not on filedocumented in this encounter Care Teams Skein Yarn Dyer Helper Relationship Specialty Start Date End Date Javier Azevedo MD PCP - General 07/19/10 02/28/13 [address] [place] [address] documented as of this encounter
--- OUTSIDE RECORDS SUMMARY | 2022-01-14 10:49 | XMS_ITS | Encounter Summary ---
:1990 Author Organization [employer] Address [address] [place] [address] Care Team Providers Name Role Phone Sim Asher MD Primary Care Provider Reason for Visit Reason Comments RESULTS, TEST Encounter Details Date Type Department Care Team Description 10/27/2010 Telephone [facility] Sim Asher MD RESULTS, TEST [address] [place] [address] [place] [address] [phone] (Wo rk) Social History Tobacco Use Types Packs/Day Years Used Date Smoking Tobacco: Never Assessed Sex Assigned at Date Recorded Not on file documented as of this encounter Nursing Notes Violet Lopez LPN - 11/02/2010 2:27 PM CDT Message was left for the pt with the recommendations of Dr Weinberg. Eddie Weinberg MD - 11/02/2010 2:21 PM CDT the skin may just be inflamed from all the diarrhea; daily soaks in tub and bacitracin otc to the affected area 2 to 3 times daily Nicole Carpio LPN - 11/02/2010 10:37 AM CDT Notified Tom of pending lab. Tom states he is doing better but wonders if it is normal for the anal opening and area just around it to be sore/burning after a BM? Eddie Weinberg MD - 11/02/2010 10:15 AM CDT Please call and see how patient is doing; it sounds like possible Salmonella - tests are pending; usually does not need to be treated; Nicole Carpio LPN - 11/02/2010 9:57 AM CDT Stool culture is still pending; sample has been [facility] for positive ID of Salmonella. Is mom aware of this preliminary result? Ina Evans LPN - 11/01/2010 3:[address] Asher looked at results and stated stool test was neg. Message was left informing pt of information and to call us back and let us know how he's doing. Ina @[phone]. Ann Todd MA - 10/28/2010 11:13 AM CDT Left message for Tom to call back with update on how he is feeling. Still waiting on stool results. Eddie Weinberg MD - 10/28/2010 10:12 AM CDT The stool tests are not back yet; the white blood count was normal; how is he doing? Radha Ashton LPN - 10/28/2010 8:34 AM CDT Patient would like lab results from 10/26/10. Some results still pending. Clinician must review results due to abnormal values. documented in this encounter Plan of Treatment Not on filedocumented as of this encounter Visit Diagnoses Not on filedocumented in this encounter Care Teams Label Press Operator Relationship Specialty Start Date End Date Sim Asher MD PCP - General 07/19/10 02/28/13 [address] [place] [address] documented as of this encounter
--- OUTSIDE RECORDS SUMMARY | 2022-01-14 10:49 | XMS_ITS | Encounter Summary ---
:1990 Author Organization [employer] Address [address] [place] [address] Care Team Providers Name Role Phone Sim Asher MD Primary Care Provider Reason for Visit Reason Comments Other Encounter Details Date Type Department Care Team Description 06/24/2010 Telephone [facility] Harika Turk LPN Other [address] [place] [address] Social History Tobacco Use Types Packs/Day Years Used Date Smoking Tobacco: Never Assessed Sex Assigned at Date Recorded Not on file documented as of this encounter Progress Notes Harika Turk LPN - 06/24/2010 3:38 PM CST Obtained CON2 appt for Tom with General Surgeon, Dr Fox for painful hernia. Called and gave Tom all information - 9:45 am check in at [facility] (attached to [facility]) [address] (second floor). He verbalized understanding. Created on 24Jun2010 3:38pm by HARIKA TURK RWORKS PUMP STATION OPERATOR documented in this encounter Plan of Treatment Not on filedocumented as of this encounter Visit Diagnoses Not on filedocumented in this encounter Care Teams Balloon Pilot Relationship Specialty Start Date End Date Sim Asher MD PCP - General 07/19/10 02/28/13 [address] [place] [address] documented as of this encounter
--- OUTSIDE RECORDS SUMMARY | 2022-01-14 10:50 | XMS_ITS | Encounter Summary ---
:1990 Author Organization [email or web address] Address [address] [place] [address] Care Team Providers Name Role Phone Sim Asher MD Primary Care Provider Encounter Details Date Type Department Care Team Description 11/24/2004 Office Visit [facility] Eddie Weinberg MD [address] [facility] [place] [place] [address] [place] [address] [phone] (Wo rk) Social History Tobacco Use Types Packs/Day Years Used Date Smoking Tobacco: Never Assessed Sex Assigned at Date Recorded Not on file documented as of this encounter Last Filed Vital Signs Vital Sign Reading Time Taken Comments Blood Pressure 98/58 11/24/2004 1:54 PM CDT Pulse - - Temperature - - Respiratory Rate - - Oxygen Saturation - - Inhaled Oxygen Concentration - - Weight 62.6 kg (137 lb 15.8 oz) 11/24/2004 1:54 PM C: 6 2.6kg CDT Height 165.7 cm (5' 5.25) 11/24/2004 1:54 PM C: 165.7c m CDT Body Mass Index 22.79 11/24/2004 1:54 PM CDT Body Mass Index Percentile 91.24 % 11/24/2004 1:54 PM CDT Growth Chart: [facility] (Boys, 2-20 Years) documented in this encounter Progress Notes Eddie Weinberg MD - 11/24/2004 12:01 AM CDT H&P signed by Eddie Weinberg MD at 11/24/04 1444 Author: Eddie Weinberg MD Service: (none) Author Type: Physician Filed: 08/06/10 0618 Note Time: 11/24/04 0001 Status: Signed Time Study Statistician: Eddie Weinberg MD (Physician) Adolescent Well Visit/Sports Physical IMPRESSION: Adolescent Well Child Visit. Patient accompanied to clinic by : mother Patient is 14 years old. Patient is in seventh grade of school. Interval History No specific patient concerns. No specific parental concerns. Eats 3 meals per day with a varied diet. No concerns about sleep habits. Has good sleep habits No concerns about social interactions. Emotionally appears to be stable. Good interactions with peers. parents for 2 years, sees dad every other weekend, had some counselling about sadness re: this , but now doing wellSchool: No concerns about school. Activity: basketball, Tobacco: None Alcohol: None Not using bicycle helmets consistently. Wearing seatbelts consistently. Past History ADR's, Medications, and Problem List reviewed and updated today on the Health Profile of Noris. Has mild asthma Social / Family History: NO tobacco smoke exposure Number of siblings:3 PHYSICAL EXAM: Current Weight: 138 lbs. / 62.7kg. Current Height: 65.25 inches Current BMI: 22.8 Kg/meters squared Blood Pressure: 98/58 General Appearance: alert, comfortable. HEENT: canals/TM's normal, conjunctivae non-injected, sclerae anicteric, no strabismus, oral mucosa .moist without lesions. Neck: supple, no mass or goiter. Chest: clear with /normal effort. CV: regular rate w/o murmur, pulses normal to palpation. Abdomen: soft, nontender without hepatosplenomegaly or masses. : testes 1descended and normal bilaterally, no inguinal hernia. Extremities: full 2range of motion without abnormality. Neuro: normal tone and symmetric 3reflexes. Spine: no scoliosis. Skin: no abnormal rash. Penis: circumcised without lesions. Sexual Maturity Rating: Hansel stage 1. ASSESSMENT: Adolescent Well Child Visit. PLAN: Hepatitis B vaccine, may have #2 and #3 as shots only. Form completed for sports participation. Cleared for all sports activities. Follow-up in 3 years. *SH~PC~WSP ~ Shorthand Note completed on: 11/24/2004 2:46 PM documented in this encounter Plan of Treatment Not on filedocumented as of this encounter Visit Diagnoses Not on filedocumented in this encounter Care Teams Satellite Communications Operator Relationship Specialty Start Date End Date Sim Asher MD PCP - General 07/19/10 02/28/13 [address] [place] [address] documented as of this encounter
--- OUTSIDE RECORDS SUMMARY | 2022-01-14 10:50 | XMS_ITS | Encounter Summary ---
:1990 Author Organization [employer] Address [address] [place] [address] Care Team Providers Name Role Phone Javier Azevedo MD Primary Care Provider Reason for Visit Reason Comments Other Encounter Details Date Type Department Care Team Description 04/25/2008 Telephone [facility], Message Other [address] [place], [place] [id number] Social History Tobacco Use Types Packs/Day Years Used Date Smoking Tobacco: Never Assessed Sex Assigned at Date Recorded Not on file documented as of this encounter Progress Notes Center, Message - 04/25/2008 1:32 PM CST Phone Note filed by INTTRA at 08/05/10 8138 Author: INTTRA Service: (none) Author Type: (none) Filed: 08/05/101426 Note Time: 04/25/081331 Status: Signed Case Management Social Worker: INTTRA Lab/Radiology Results Caller Name/Relationship:Annie Primary Rf Technician:Alem What test result is needed?Kidney and blood When and where was test done?[facility] [place] 04[facility]24 Who ordered the test?Amanda Watch Train Assembler:Eri Best call back number:[phone] Is it OK to leave a confidential message on this voicemail?y *[id number] Created on 25Apr2008 1:32pm by LOGAN MEEHAN R On 25Apr2008 1:55pm KATHRYN OLIVER wrote: Mom would like results of patients 04/24/08 labs. Clinician must review. On 25Apr2008 2:00pm JAVIER AZEVEDO wrote: All labs WNL (except sl protein in urine which is almost certainly an incidental finding-ie. unrelated to his symptoms). At this point I would simply repeat the urine to verify resolution of mild proteinuria in 4-6 weeks as lab only). Acknowledged by JAVIER AZEVEDO on 2:00pm On 25Apr2008 3:21pm JESSI CLEMENTS wrote: Eri notified of the above information and agreed. Fushcia and lab orders completed and mother transfered to make lab appt. ESSIONAL DEVELOPMENT DIRECTOR documented in this encounter Plan of Treatment Not on filedocumented as of this encounter Visit Diagnoses Not on filedocumented in this encounter Care Teams Signals Collector/Analyst Relationship Specialty Start Date End Date Javier Azevedo MD PCP - General 07/19/10 02/28/13 [address] [place], [place] [address] documented as of this encounter
--- OUTSIDE RECORDS SUMMARY | 2022-01-14 10:50 | XMS_ITS | Encounter Summary ---
:1990 Author Organization [facility] Address [address] [place] [address] Care Team Providers Name Role Phone Javier Azevedo MD Primary Care Provider Encounter Details Date Type Department Care Team Description 04/24/2008 Office Visit [facility] Javier Azevedo MD [facility] [address] [place] [address] [place] [address] [place] [address] [phone] (Wo rk) Social History Tobacco Use Types Packs/Day Years Used Date Smoking Tobacco: Never Assessed Sex Assigned at Date Recorded Not on file documented as of this encounter Last Filed Vital Signs Vital Sign Reading Time Taken Comments Blood Pressure - - Pulse - - Temperature 36.7 ??C (98.1 ??F) 04/24/2008 2:35 PM PAPER BAG MAKER C: 36 .7 C Respiratory Rate - - Oxygen Saturation - - Inhaled Oxygen Concentration - - Weight 90.3 kg (198 lb 15.8 oz) 04/24/2008 2:35 PM PAPER BAG MAKER C: 90.3kg Height - - Body Mass Index - - documented in this encounter Progress Notes Javier Azevedo MD - 04/24/2008 12:01 AM CST Progress Notes signed by Javier Azevedo MD at 05/15/08 1713 Author: Javier Azevedo MD Service: (none) Author Type: Physician Filed: 08/07/10 0956 Note Time: 04/24/08 0001 Status: Signed Redrawer: Javier Azevedo MD (Physician) NAME: EDWARD DREW MR#: [id number] ACCT: [id number] VISIT: [id number] DICTATING CLINICIAN: JAVIER AZEVEDO MD CONFIRM #: [id number] LOC: 1703 CLINIC PROGRESS NOTE DATE OF VISIT: 04/24/2008 SUBJECTIVE: Body aches, joint pain, cough, and headache at the occiput and nose. Had diarrhea day 1 yesterday, today none. No vomiting. His nausea tends to be a little worse in the last 3 days. No dysuria. Has been off tetracycline for months. PAST MEDICAL HISTORY: Has had stomachache and headache for the past month. Missed swimming x1 yesterday. OBJECTIVE: VS: T: 98.0. Wt: 199 lb. He has been diaphoretic. ? Left flank tenderness and left lower quadrant tenderness. He does have some mild diffuse adenopathy. Otherwise, head, neck, chest, and CV negative. ABDOMEN: Benign. ASSESSMENT: PLAN: There is a question of whether he has had some chills, but has had no headache. Did obtain CBC with differential, sed rate, CRP, abdominal flat plate, UA/UC, Monospot, and chest x-ray PA and lateral. When results back will evaluate and proceed accordingly. RGS:[id number] C: 05/14/08 12:15 CONFIRM #: [id number] R BAG MAKER documented in this encounter Plan of Treatment Not on filedocumented as of this encounter Procedures Procedure Name Priority Date/Time Associated Diagnosis Comme nts XR ABD FLAT Routine 04/24/2008 3:29 PM Results f or this (STANDARD) PAPER BAG MAKER procedure are i n the results section. XR CHEST 2 VIEWS Routine 04/24/2008 3:29 PM Resul ts for this PAPER BAG MAKER procedure are i n the results section. documented in this encounter Results XR Chest 2 Views (04/24/2008 3:29 PM PAPER BAG MAKER) Anatomical Region Laterality Modality Chest, Lung Other Specimen (Source) Anatomical Location Collection Method / Collectio n Time Received Time / Laterality Volume Narrative 04/24/2008 3:29 PM PAPER BAG MAKER No comparison. ??Appearance of a hypoplastic left 1st rib-normal variant. ??Cardiovascular system is norm al. ??The lungs are clear. [id number] Dictating GOLDEN SIERRA RADIOLOGIST Procedure Note Rober Golden - 06/19/2016Formatting o f this note might be different from the original. No comparison. Appearance of a hypoplast ic left 1st rib-normal variant. Cardiovascular system is normal . The lungs are clear. [id number]/rr Dictating GOLDEN SIERRA RADIOLOGIST Javier TAPIA XR Abd Flat (Standard) (04/24/2008 3:29 PM PAPER BAG MAKER) Anatomical Region Laterality Modality Abdomen Other Specimen (Source) Anatomical Location Collection Method / Collectio n Time Received Time / Laterality Volume Narrative 04/24/2008 3:29 PM PAPER BAG MAKER No comparison. ??Normal bowel gas pattern with gas and stool scattered in the colon down to the rectum without obstruction, and no specific abnormality appreciated. [id number] Dictating GOLDEN SIERRA RADIOLOGIST Procedure Note Rober Golden - 06/19/2016Formatting o f this note might be different from the original. No comparison. Normal bowel gas pattern with gas and stool scattered in the colon down to the rectum without obstruction, and no specific abnormality appreciated. [id number] Dictating GOLDEN SIERRA RADIOLOGIST Javier TAPIA documented in this encounter Visit Diagnoses Not on filedocumented in this encounter Care Teams Bottle Tester Relationship Specialty Start Date End Date Javier Azevedo MD PCP - General 07/19/10 02/28/13 [address] [place] [address] documented as of this encounter
--- OUTSIDE RECORDS SUMMARY | 2022-01-14 10:50 | XMS_ITS | Encounter Summary ---
:1990 Author Organization [facility] Address [address] [place] [address] Care Team Providers Name Role Phone Sim Asher MD Primary Care Provider Encounter Details Date Type Department Care Team Description 06/18/2008 Office Visit [facility] Rylan Weinberg MD [facility] [address] [facility] [place] [address] [place] [address] [phone] (Wo rk) Social History Tobacco Use Types Packs/Day Years Used Date Smoking Tobacco: Never Assessed Sex Assigned at Date Recorded Not on file documented as of this encounter Last Filed Vital Signs Vital Sign Reading Time Taken Comments Blood Pressure - - Pulse - - Temperature - - Respiratory Rate - - Oxygen Saturation - - Inhaled Oxygen Concentration - - Weight 84.4 kg (185 lb 15.7 oz) 06/18/2008 3:01 PM GLAZE MAKER C: 84.4kg Height - - Body Mass Index - - documented in this encounter Progress Notes Rylan Weinberg MD - 06/18/2008 12:01 AM CST Progress Notes signed by Rylan Weinebrg MD at 06/19/08 1637 Author: Rylan Weinberg MD Service: (none) Author Type: Physician Filed: 08/07/10 1125 Note Time: 06/18/08 0001 Status: Signed Sugar Mixer: Rylan Weinberg MD (Physician) NAME: EDWARD DREW MR#: [id number] ACCT: [id number] VISIT: [id number] DICTATING CLINICIAN: RYLAN WEINBERG MD CONFIRM #: [id number] LOC: 1703 CLINIC PROGRESS NOTE DATE OF VISIT: 06/18/2008 SUBJECTIVE: Edward comes in today for congestion and cough last 7 days. Cough seems to be getting worse, more phlegmy the last few days. No temperature. Also, needs a refill on his tetracycline for acne. He had been off of that for several months now, acne seems to be getting worse. Still has some of his creams from Dermatology at home. OBJECTIVE: VS: T: 98. Wt: 186 lb. Does have some open and closed comedones, inflammatory pustules, and even some discolored restrepo of scarring on his cheeks. No nodules or cysts at this time. His nose is congested, no definite sinus tenderness. Does have some drainage in the back of his throat. TMs normal. Pharynx normal otherwise. CHEST: Clear. ASSESSMENT: Sinusitis. PLAN: Zithromax for 5 days, then will restart his tetracycline 500 mg b.i.d. Discussed side effects again: Photosensitivity, headaches, and esophogeal ulcers. Refills x4. Recheck acne depending on how he is doing in 6-12 months. [facility]:[id number] C: 06/19/08 07:27 CONFIRM #: [id number] E MAKER documented in this encounter Plan of Treatment Not on filedocumented as of this encounter Visit Diagnoses Not on filedocumented in this encounter Care Teams Pastry Cook Apprentice Relationship Specialty Start Date End Date Sim Asher MD PCP - General 07/19/10 02/28/13 [address] [place], [place] [address] documented as of this encounter
--- OUTSIDE RECORDS SUMMARY | 2022-01-14 10:50 | XMS_ITS | Encounter Summary ---
:1990 Author [facility] Address [address] [place] [address] Care Team Providers Name Role Phone Sim Asher MD Primary Care Provider Encounter Details Date Type Department Care Team Description 08/11/2006 PN Conversion Only [facility] [address] [place] [address] Social History Tobacco Use Types Packs/Day Years Used Date Smoking Tobacco: Never Assessed Sex Assigned at Date Recorded Not on file documented as of this encounter Plan of Treatment Not on filedocumented as of this encounter Visit Diagnoses Not on filedocumented in this encounter Care Teams Internal Medicine Nurse Practitioner Relationship Specialty Start Date End Date Sim Asher MD PCP - General 07/19/10 02/28/[address] [place] [address] [id number] documented as of this encounter
--- OUTSIDE RECORDS SUMMARY | 2022-01-14 10:50 | XMS_ITS | Encounter Summary ---
:1990 Author Organization [facility] Address [address] [place] [address] Care Team Providers Name Role Phone Sim Asher MD Primary Care Provider Reason for Visit Reason Comments Other Encounter Details Date Type Department Care Team Description 04/21/2005 Telephone [facility] Reggie Sanches RN Other [address] [place] [address] Social History Tobacco Use Types Packs/Day Years Used Date Smoking Tobacco: Never Assessed Sex Assigned at Date Recorded Not on file documented as of this encounter Progress Notes Reggie Sanches RN - 04/21/2005 7:51 AM CST Phone Note filed by Reggie Sanches RN at 08/02/10 4547 Author: Reggie Sanches RN Service: (none) Author Type: Registered Nurse Filed: 08/02/10 1793 Note Time: 04/21/05 0751 Status: Signed Lace Sewer: Reggie Sanches RN (Registered Nurse) CLINICIAN FOLLOW-UP: None IMPRESSION: Asthma Attack. SYMPTOMS: Mom calling: wonders if needs to be seen. Hx of asthma. Woke with barky persistant cough. Used Albuterol inhaler without relief. Alejo c/o chest feeling tight. Mom doesn't visibly see SOB but he state's he doesn't feel he can breath well. Deny wheezing. Up and about independently. Deny problems swallowing. Deny cyanosis. Deny confusion. Denies emergent symptoms PATIENT INFORMATION: Problem List: reviewed in LastWord --- Allergies: Reviewed/updated in LastWord --- Medications: Reviewed/updated in [employer] CARE ADVICE: Appt made for this morning. Per reference 1,5,6. Advised to call back if any of the following occur: symptoms worsen or persist, any other questions or concerns. SOB progress, cyanosis, confusion to call 911. PLAN: SCHEDULE APPOINTMENT WITHIN 12-24 HOURS Patient/Caller agrees with plan and denies additional questions. Reference(s) Used: Pediatric Telephone Protocols-- Asthma Attack. Call Complete. *SH~PNNL~PEDSCHOLAR~ Created on 21Apr2005 7:51am by REGGIE [facility] documented in this encounter Plan of Treatment Not on filedocumented as of this encounter Visit Diagnoses Not on filedocumented in this encounter Care Teams Cosmetician Relationship Specialty Start Date End Date Sim Asher MD PCP - General 07/19/10 02/28/13 [address] [place], [place] [address] documented as of this encounter
--- OUTSIDE RECORDS SUMMARY | 2022-01-14 10:50 | XMS_ITS | Encounter Summary ---
:1990 Author Organization [employer] Address [address] [place] [address] Care Team Providers Name Role Phone Sim Asher MD Primary Care Provider Encounter Details Date Type Department Care Team Description 09/09/2005 Nursing Visit [facility] Elvi Ferrara MD [facility] [address] [place] [address] [place] [address] [phone] (Wo rk) Social History Tobacco Use Types Packs/Day Years Used Date Smoking Tobacco: Never Assessed Sex Assigned at Date Recorded Not on file documented as of this encounter Plan of Treatment Not on filedocumented as of this encounter Visit Diagnoses Not on filedocumented in this encounter Care Teams Technology Sales Representative Relationship Specialty Start Date End Date Sim Asher MD PCP - General 07/19/10 02/28/[address] [place] [id number] documented as of this encounter
--- OUTSIDE RECORDS SUMMARY | 2022-01-14 10:50 | XMS_ITS | Encounter Summary ---
:1990 Author Organization [facility] Address [address] [place] [address] Care Team Providers Name Role Phone Javier Azevedo MD Primary Care Provider Encounter Details Date Type Department Care Team Description 08/19/2008 Office Visit [facility] Javier Azevedo MD [address] [place] [address] [place] [address] [phone] (Wo rk) Social History Tobacco Use Types [...] Weight 90.3 kg (198 lb 15.8 oz) 08/19/2008 9:05 AM C: 9 0.3kg CDT Height 189.2 cm (6' 2.5) 08/19/2008 9:05 AM C: 189.2cm CDT Body Mass Index 25.21 08/19/2008 9:05 AM CDT Body Mass Index Percentile 89.20 % 08/19/2008 9:05 AM CDT Growth Chart: [facility] (Boys, 2-20 Years) documented in this encounter Progress Notes Javier Azevedo MD - 08/19/2008 12:01 AM CDT Progress Notes signed by Javier Azevedo MD at 09/12/08 6342 Author: Javier Azevedo MD Service: (none) Author Type: Physician Filed: 08/07/10 1306 Note Time: 08/19/08 0001 Status: Signed Pest Control Service Sales Agent: Javier Azevedo MD (Physician) NAME: EDWARD DREW MR#: [id number] ACCT: [id number] VISIT: [id number] DICTATING CLINICIAN: JAVIER AZEVEDO MD CONFIRM #: [id number] LOC: 1703 CLINIC PROGRESS NOTE Corrected copy 08/21/08 hsp/t DATE OF VISIT: 08/19/2008 SUBJECTIVE: Head contusion on 08/15. Was about to run through a cement culvert when he slipped and struck the top of his head against the top edge of the culvert. He had momentary white vision for several seconds, but no antegrade or retrograde amnesia. He was by himself at the time. He has no history of concussion. However, since then, he has had 6 or more headaches a day lasting 6-7 minutes at a time, quite acute, occurring at the site of the contusion. He has had a headache x1 with night waking. Occasionally sees black spots. Occasionally has a vasovagal type sensation intermittently. Plus/minus difficulty concentrating. No change in appetite. No tinnitus. No vertigo. Father with migraine and maternal cousin with migraine. OBJECTIVE: VS: Ht: 74-1/2 in. Wt: 199 lb. He is in no acute distress, making jokes and puns. Cranial nerves 2 through 12 intact. Pupils equal, round, and reactive to light and accommodation. Discs are sharp x2 with venous pulsations noted. Deep tendon reflexes brisk and symmetric throughout with downgoing toes. Strength is 5+/5+ throughout with normal tone and bulk. Jzahjq-hv-pdse, mzxz-zg-hcyq, rapid-alternating hand movements intact. Romberg negative. No tremor. Repeating sequential numbers without difficulty; he fails 5 numbers. Rates his headaches as 6 out of 10 with 10 being the worst headache he has ever had in his life. He participates in field events in track, shot and discus. ASSESSMENT: Grade 1 concussion with significant postconcussive symptoms. PLAN: Discussed second-impact syndrome. Discussed brain rest. Discussed criteria for reassessment and will follow up p.r.n. DIAGNOSIS/IMPRESSION: Grade 1 concussion. Postconcussive syndrome. PLEASE NOTE: Should note that he was slightly tender on the top of his head. TMs clear. No facial injury. No neck abnormalities. No tenderness. RGS:[id number] C: 08/20/08 09:59 CONFIRM #: [id number] documented in this encounter Plan of Treatment Not on filedocumented as of this encounter Visit Diagnoses Not on filedocumented in this encounter Care Teams New Vehicle Sales Consultant Relationship Specialty Start Date End Date Javier Azevedo MD PCP - General 07/19/10 02/28/[address] [place] [id number] documented as of this encounter
--- OUTSIDE RECORDS SUMMARY | 2022-01-14 10:50 | XMS_ITS | Encounter Summary ---
:1990 Author Organization [facility] Address [address] [place] [address] Care Team Providers Name Role Phone Sim Asher MD Primary Care Provider Encounter Details Date Type Department Care Team Description 02/28/2007 Nursing Visit [facility] Maverick Olivas MD [facility] [address] [place] [address] [place] [address] [phone] (Wo rk) Social History Tobacco Use Types Packs/Day Years Used Date Smoking Tobacco: Never Assessed Sex Assigned at Date Recorded Not on file documented as of this encounter Plan of Treatment Not on filedocumented as of this encounter Visit Diagnoses Not on filedocumented in this encounter Care Teams Auditing Specialist Relationship Specialty Start Date End Date Sim Asher MD PCP - General 07/19/10 02/28/[address] [place] [id number] documented as of this encounter
--- OUTSIDE RECORDS SUMMARY | 2022-01-14 10:50 | XMS_ITS | Encounter Summary ---
:1990 Author Organization [facility] Address [address] [place] [address] Care Team Providers Name Role Phone Sim Asher MD Primary Care Provider Encounter Details Date Type Department Care Team Description 02/24/2009 Office Visit [place] [facility] Rylan Weinberg MD [address] [facility] [place] [address] [place] [address] [phone] (Wo rk) Social History Tobacco Use Types Packs/Day Years Used Date Smoking Tobacco: Never Assessed Sex Assigned at Date Recorded Not on file documented as of this encounter Last Filed Vital Signs Vital Sign Reading Time Taken Comments Blood Pressure - - Pulse - - Temperature - - Respiratory Rate - - Oxygen Saturation - - Inhaled Oxygen Concentration - - Weight 93.4 kg (206 lb) 02/24/2009 1:35 PM DRY CURE WORKER C: 93.4k g Height - - Body Mass Index - - documented in this encounter Progress Notes Rylan Weinberg MD - 02/24/2009 12:01 AM CST Progress Notes signed by Rylan Weinberg MD at 02/26/09 0002 Author: Rylan Weinberg MD Service: (none) Author Type: Physician Filed: 08/07/10 7596 Note Time: 02/24/09 0001 Status: Signed Fruit Pitter: Rylan Weinberg MD (Physician) NAME: EDWARD DREW MR#: [id number] ACCT: [id number] VISIT: [id number] DICTATING CLINICIAN: RYLAN WEINBERG MD CONFIRM #: [id number] LOC: 1703 CLINIC PROGRESS NOTE DATE OF VISIT: 02/24/2009 SUBJECTIVE: Edward comes in today for cough the last 3 days, temp by feel. Was very tired the first few days. Now feeling a little better. Temperature down, if he had one. Seems more normal today. Noticed pain with urination when he urinated the 1st time this morning, a little bit since then. No blood in the urine. No previous history of urinary tract infections. He has had a runny nose and cough. No vomiting or diarrhea. Has been sexually active, but not for the last 3 months. No previous history of STDs. ADR/ALLERGIES: PENICILLIN. OBJECTIVE: VS: T: 98 degrees. Wt: 206 lb. HEENT: TMs and pharynx normal. Nose is congested. CHEST: Clear. GENITALIA: Appear normal without any lesions or sores. ASSESSMENT: Viral syndrome. Dysuria, probably from urethritis. PLAN: Urinalysis looks completely normal. Urine culture pending. Will get a urine for STD screening as well. [facility]:[id number] C: 02/25/09 11:17 CONFIRM #: [id number] CURE WORKER documented in this encounter Plan of Treatment Not on filedocumented as of this encounter Visit Diagnoses Not on filedocumented in this encounter Care Teams Waistband Setter Lockstitch Relationship Specialty Start Date End Date Sim Asher MD PCP - General 07/19/10 02/28/13 [address] [place] [address] documented as of this encounter
--- OUTSIDE RECORDS SUMMARY | 2022-01-14 10:50 | XMS_ITS | Encounter Summary ---
:1990 Author Organization [employer] [facility] Address [address] [place] [address] Care Team Providers Name Role Phone Sim Asher MD Primary Care Provider Encounter Details Date Type Department Care Team Description 04/24/2008 PN Conversion Only [place] CONVERSION Sim Asher MD [address] [place] [address] [place] [id number] (Wo rk) Social History Tobacco Use Types Packs/Day Years Used Date Smoking Tobacco: Never Assessed Sex Assigned at Date Recorded Not on file documented as of this encounter Plan of Treatment Not on filedocumented as of this encounter Procedures Procedure Name Priority Date/Time Associated Comments Diagnosis URINALYSIS Routine 04/24/2008 3:05 PM Results f or this ROUTINE(MICRO IF POS) AUTO BODY REPAIR TECHNICIAN proced ure are in the results section. URINALYSIS MICROSCOPIC Routine 04/24/2008 3:05 PM Results for this AUTO BODY REPAIR TECHNICIAN procedure are i n the results section. MONONUCLEOSIS SCREEN Routine 04/24/2008 3:05 PM R esults for this AUTO BODY REPAIR TECHNICIAN procedure are i n the results section. COMPLETE BLOOD Routine 04/24/2008 3:05 PM Results for this COUNT-W/DIFF AUTO BODY REPAIR TECHNICIAN procedure are i n the results section. URINE CULTURE Routine 04/24/2008 3:05 PM Results for this AUTO BODY REPAIR TECHNICIAN procedure are i n the results section. C-REACTIVE PROTEIN Routine 04/24/2008 3:05 PM Res ults for this AUTO BODY REPAIR TECHNICIAN procedure are i n the results section. ESR Routine 04/24/2008 3:05 PM Results f or this AUTO BODY REPAIR TECHNICIAN procedure are i n the results section. documented in this encounter Results Mononucleosis Screen (04/24/2008 3:05 PM AUTO BODY REPAIR TECHNICIAN) Patholo gist Method Time Signature Infectious Negative Negative HP CONVERSION Mononucleosis Screen Specimen (Source) Anatomical Collection Method Collection Time Re ceived Time Location / / Volume Laterality 04/24/2008 3:05 PM AUTO BODY REPAIR TECHNICIAN Sim Asher MD LAB_1 Performing Organization Address City/[facility] Code Phon e Number HP CONVERSION Urine Culture (04/24/2008 3:05 PM AUTO BODY REPAIR TECHNICIAN) Analysis Performed At Patho logist Time Signature Urine Culture SEE TEXT HP CONVERSION Comment: Patient: EDWARD DREW Culture, Urine ?Collected: ??[id number] ??[id number] Source: Clean Ca ?Processed: ??[id number] ??[id number] Final Report ------ ?[id number] ??[id number] No growth Specimen (Source) Anatomical Collection Method Collection Time Re ceived Time Location / / Volume Laterality 04/24/2008 3:05 PM AUTO BODY REPAIR TECHNICIAN Sim Asher MD LAB_1 Performing Organization Address [facility] Phon e Number HP CONVERSION (ABNORMAL) Complete Blood Count-W/Diff (04/24/2008 3:05 PM AUTO BODY REPAIR TECHNICIAN) Patholo gist Method Time Signature White Blood Cell 7.2 4.5 - 13.0 HP CONVERSIO N Count K/cmm Red Blood Cell 5.51 (H) 4.50 - HP CONVERSION Count 5.30 m/cmm Hemoglobin 16.0 13.0 - HP CONVERSION 16.0 gm/dL Hematocrit 46.6 37.0 - HP CONVERSION 49.0 % Mean Corpuscular 84.6 78.0 - HP CONVERSION Volume 100.0 fl Mean Corpuscular 29.0 24.0 - HP CONVERSION Hemoglobin 34.0 pg Mean Corpuscular 34.3 32.0 - HP CONVERSION Hemoglobin Conc 36.5 gm/dL Crocker RDW 12.9 11.0 - HP CONVERSION 15.0 % Platelet Count 269 150 - 450 HP CONVERSION k/cmm Differential Auto-Dif No normal HP CONVERSION Verify range Neutrophils 4.4 K/cmm HP CONVERSION Absolute Count Neutrophil 61.7 % HP CONVERSION Lymphocyte % 28.3 % HP CONVERSION Monocyte 6.5 % HP CONVERSION Eosinophil 2.3 % HP CONVERSION Basophil % 1.2 % HP CONVERSION Specimen (Source) Anatomical Collection Method Collection Time Re ceived Time Location / / Volume Laterality 04/24/2008 3:05 PM AUTO BODY REPAIR TECHNICIAN Sim Asher MD LAB_1 Performing Organization Address City/State/ZIP Code Phon e Number HP CONVERSION ESR (04/24/2008 3:05 PM AUTO BODY REPAIR TECHNICIAN) [facility] Method Time Signature Sedimentation Rate 5 0 - 15 HP CONVERSI ON mm/Hr Specimen (Source) Anatomical Collection Method Collection Time Re ceived Time Location / / Volume Laterality 04/24/2008 3:05 PM AUTO BODY REPAIR TECHNICIAN Sim Asher MD LAB_1 Performing Organization Address City/State/ZIP Code Phon e Number HP CONVERSION (ABNORMAL) Urinalysis Routine(Micro If Pos) (04/24/2008 3:05 PM AUTO BODY REPAIR TECHNICIAN) [facility] Method Time Signature Turbidity Clear No normal HP CONVERSION range pH Urine 7.0 4.5 - 7.5 HP CONVERSION Protein Urine 30 mg/dL Neg-Trac HP CONVERSION (A) Glucose, Negative Neg-Trac HP CONVERSION Qualitative U Ketones Negative Negative HP CONVERSION U BILI Negative Negative HP CONVERSION Blood Urine Negative Negative HP CONVERSION Nitrite Urine Negative Negative HP CONVERSION Leukocyte Negative Negative HP CONVERSION Esterase Urine Urobilinogen Negative 0.2 - 1.0 HP CONVERSION Urine U Specific 1.015 1.005 - 25 HP CONVERSION [place] Specimen (Source) Anatomical Collection Method Collection Time Re ceived Time Location / / Volume Laterality 04/24/2008 3:05 PM AUTO BODY REPAIR TECHNICIAN Sim Asher MD LAB_1 Performing Organization Address City/[facility]/ZIP Code Phon e Number HP CONVERSION (ABNORMAL) Urinalysis Microscopic (04/24/2008 3:05 PM AUTO BODY REPAIR TECHNICIAN) Patholo gist Method Time Signature White Blood Negative 0 - 3 HP CONVERSION Cells Urine Red Blood Cells Negative 0 - 2 HP CONVERSION Urine Bacteria Urine Few (A) None HP CONVERSION Epithelial Few Few /HPF HP CONVERSION Cells Specimen (Source) Anatomical Collection Method Collection Time Re ceived Time Location / / Volume Laterality 04/24/2008 3:05 PM AUTO BODY REPAIR TECHNICIAN Sim Asher MD LAB_1 Performing Organization Address City/[facility] Code Phon e Number HP CONVERSION C-Reactive Protein (04/24/2008 3:05 PM AUTO BODY REPAIR TECHNICIAN) P athologist Signature CRP <0.1 0.0 - 0.9 HP CONVERSION mg/dL Specimen (Source) Anatomical Collection Method Collection Time Re ceived Time Location / / Volume Laterality 04/24/2008 3:05 PM AUTO BODY REPAIR TECHNICIAN Sim Asher MD LAB_1 Performing Organization Address City/[facility]/ZIP Code Phon e Number HP CONVERSION documented in this encounter Visit Diagnoses Not on filedocumented in this encounter Care Teams Clin Tech Relationship Specialty Start Date End Date Sim Asher MD PCP - General 07/19/10 02/28/13 [address] [place], [place] [id number] documented as of this encounter
--- OUTSIDE RECORDS SUMMARY | 2022-01-14 10:50 | XMS_ITS | Encounter Summary ---
:1990 Author Organization [employer] Address [address] [place] [address] Care Team Providers Name Role Phone Sim Asher MD Primary Care Provider Encounter Details Date Type Department Care Team Description 08/14/2006 Office Visit [facility] Sim Asher MD [address] [facility] [address] [place] [address] [place], [place] [phone] (Wo rk) Social History Tobacco Use Types Packs/Day Years Used Date Smoking Tobacco: Never Assessed Sex Assigned at Date Recorded Not on file documented as of this encounter Last Filed Vital Signs Vital Sign Reading Time Taken Comments Blood Pressure 108/72 08/14/2006 8:38 AM CDT Pulse 48 08/14/2006 8:38 AM CDT Temperature 36.4 ??C (97.5 ??F) 08/14/2006 8:38 AM C: 36.4 C CDT Respiratory Rate - - Oxygen Saturation - - Inhaled Oxygen Concentration - - Weight 76.6 kg (168 lb 15.7 oz) 08/14/2006 8:38 AM C: 7 6.7kg CDT Height 182.6 cm (5' 11.88) 08/14/2006 8:38 AM C: 182.6 cm CDT Body Mass Index 23 08/14/2006 8:38 AM CDT Body Mass Index Percentile 86.54 % 08/14/2006 8:38 AM CDT Growth Chart: CDC (Boys, 2-20 Years) documented in this encounter Progress Notes Sim Asher MD - 08/14/2006 12:01 AM CDT H&P signed by Sim Asher MD at 08/14/06 0909 Author: Sim Asher MD Service: (none) Author Type: Physician Filed: 08/06/10 1854 Note Time: 08/14/06 0001 Status: Signed Assistant Offset Press Operator: Sim Asher MD (Physician) Well Child/Adolescent Visit or Sports Physical IMPRESSION: Well adolescent visit. Sports exam. Demographics: Accompanied by father. Accompanied by sibling. Patient is 16 years old. Patient is in eighth grade of school. Interval History: Boy Credit Assistant and Sports CPX. Soccer, Swimming, Shot Put, Discuss, and Pole vault. Eats 3 meals per day with a varied diet. Has adequate protein intake. Adequate milk intake. Calcium intake adequate. No concerns about sleep habits. Has good sleep habits. No snoring or apnea observed. No concerns about social interactions. Appears to be emotionally stable. Good interactions with peers. School / Activities: School: No concerns about school. Grades in school include A's. Grades in school include B's. Activity: Gets regular activity. Organized Activity: soccer, swimming, track and/or cross country, Past History: Adverse drug reactions: Patient's Adverse Drug Reactions were reviewed and updated today on the Health Profile screen of [employer]. Latex Allergy Medications: None. Food Allergies: No food allergies. Previous Illness: No significant past medical or surgical history. Social / Family History: See Sports Form. Unchanged from visit dated 11/24/2004. PHYSICAL EXAM: (See online scanned documents for percentile graphs) See sports form. Vital signs updated and reviewed in Lastword. General Appearance: Alert, comfortable. HEENT: Canals/TM's normal, conjunctivae non-injected, sclerae anicteric, no strabismus, oral mucosa 0moist without lesions. Neck: Supple, no mass or goiter. Chest: Clear with 1normal effort. CV: Regular rate w/o murmur, pulses normal to palpation. Abdomen: Soft, nontender without hepatosplenomegaly or masses. Extremities: 3Full range of motion without abnormality. Neuro: Normal tone and symmetric 4reflexes. Spine: Grossly normal. Skin: No abnormal rash. Weight: Appears proportional to height. /Pelvic: Testes descended and normal bilaterally, no inguinal hernia, normal anus, circumcised without lesions. Genitalia & Pubic Hair: Hansel stage 3. Sports: Eyes: No anisocoria. Eyes: Fundi normal in areas seen. ASSESSMENT: Well adolescent visit. Sports exam. PLAN: Follow-up next well check. Immunizations: MCV4 vaccine given. Hepatitis A vaccine given. Sports Clearance: Form completed for sports participation. Cleared for all sports activities. Boy Credit Assistant form completed. *SH~PC~WSP ~ Shorthand Note completed on: 08/14/2006 9:10 AM documented in this encounter Plan of Treatment Not on filedocumented as of this encounter Visit Diagnoses Not on filedocumented in this encounter Care Teams Web Production Designer Relationship Specialty Start Date End Date Sim Asher MD PCP - General 07/19/10 02/28/13 [address] [place] [address] documented as of this encounter
--- OUTSIDE RECORDS SUMMARY | 2022-01-14 10:50 | XMS_ITS | Encounter Summary ---
:1990 Author Organization [facility] Address [address] [place] [address] Care Team Providers Name Role Phone Sim Asher MD Primary Care Provider Encounter Details Date Type Department Care Team Description 04/21/2005 PN Conversion Only [place] CONVERSION Katherine, [address], LINK KNITTING MACHINE OPERATOR, [place] [address] [address] [place] [phone] (Wo rk) Social History Tobacco Use Types Packs/Day Years Used Date Smoking Tobacco: Never Assessed Sex Assigned at Date Recorded Not on file documented as of this encounter Plan of Treatment Not on filedocumented as of this encounter Procedures Procedure Name Priority Date/Time Associated Diagnosis Comme nts STREP GROUP A Routine 04/21/2005 11:00 AM Results for this ANTIGEN TEST AFTER SCHOOL CAREGIVER procedure are i n the results section. BETA STREP FOLLOWUP Routine 04/21/2005 11:00 AM R esults for this AFTER SCHOOL CAREGIVER procedure are i n the results section. documented in this encounter Results Strep Group A Antigen Test (04/21/2005 11:00 AM AFTER SCHOOL CAREGIVER) Analysis Performed At Patho logist Time Signature Strep Group A Negative Negative HP CONVERSION Antigen Test Comment: Culture to follow. Specimen (Source) Anatomical Collection Method Collection Time Re ceived Time Location / / Volume Laterality 04/21/2005 11:00 AM AFTER SCHOOL CAREGIVER Jessi Murphy APRN, RETAIL WAREHOUSE SUPERVISOR LAB_1 Performing Organization Address City/State/ZIP Code Phon e Number HP CONVERSION Beta Strep Followup (04/21/2005 11:00 AM AFTER SCHOOL CAREGIVER) P athologist Signature Strep Screen SEE TEXT HP CONVERSION Comment: Patient: EDWARD DREW Rapid Strep Follow up Culture @ ? Collected: ??[id number] ??1100 Source: Throat ?Processed: ??[id number] ??1101 Final Report ------ ?[id number] No beta hemolytic Strep group A isolated . @ = Rapid F/U Cult Performed at [address] [place] Specimen (Source) Anatomical Collection Method Collection Time Re ceived Time Location / / Volume Laterality 04/21/2005 11:00 AM AFTER SCHOOL CAREGIVER Jessi Murphy APRN, RETAIL WAREHOUSE SUPERVISOR LAB_1 Performing Organization Address City/State/ZIP Code Phon e Number HP CONVERSION documented in this encounter Visit Diagnoses Not on filedocumented in this encounter Care Teams Training Generalist Relationship Specialty Start Date End Date Sim Asher MD PCP - General 07/19/10 02/28/13 [address] [place], [place] [phone] documented as of this encounter
--- OUTSIDE RECORDS SUMMARY | 2022-01-14 10:50 | XMS_ITS | Encounter Summary ---
:1990 Author Organization [employer] Address [address] [place] [address] Care Team Providers Name Role Phone Sim Asher MD Primary Care Provider Encounter Details Date Type Department Care Team Description 07/03/2007 Office Visit [facility] Linda Quinonez APRN, [address] [place] [address] [facility] [phone] [place] [address] (Wo rk) Social History Tobacco Use Types Packs/Day Years Used Date Smoking Tobacco: Never Assessed Sex Assigned at Date Recorded Not on file documented as of this encounter Progress Notes Linda Shaffer APRN, CNP - 07/03/2007 12:01 AM CDT Progress Notes signed by Linda Shaffer APRN, CNP at 07/04/07 0902 Author: DEMETRA Perez Service: (none) Author Type: Nurse Practitioner Filed: 08/07/10 0140 Note Time: 07/03/07 0001 Status: Signed Teacher Tutor: DEMETRA Perez (Nurse Practitioner) NAME: EDWARD DREW MR#: [id number] ACCT: [id number] VISIT: [id number] DICTATING CLINICIAN: LINDA SHAFFER CNP JOB: [id number] LOC: 427 CLINIC PROGRESS NOTE DATE OF VISIT: 07/03/2007 SUBJECTIVE: Edward is a 16-year-old known to me for his acne. Is in today for his 2 month followup. Currently, using tetracycline 500 mg b.i.d. He takes the last dose right before he goes to bed and he does state that he has noted some heartburn with it. He uses clindamycin solution to his back, which is significantly improved, as well as a 10% Benzac AC wash. He does find that he becomes somewhat dry with the use of the BenzaClin and feels that will improve when he is out of the water a little bit more, as he is an avid swimmer. He does feel all in all that his acne has improved. CURRENT MEDICATIONS: Reviewed and updated. ADR/ALLERGIES: TO PENICILLIN. OBJECTIVE: This is a well-developed, well-nourished, young man in no acute distress, who is alert, and oriented. Very minimal acne is noted over the face. He has a little bit of inflammatory acne noted over the upper back. There is no significant dryness seen. ASSESSMENT: Acne. PLAN: I have dissuaded from using the tetracycline right before bedtime; he should either take it when he gets home from school or before supper to give him some time for the tetracycline less acidic. He will continue with the use of his clindamycin and BenzaClin, as well as 10% Benzac AC wash. We did talk about watching the sun over the summer and either decreasing the tetracycline or going off of it entirely. He should return to see me in November for further followup. IMPRESSION: Acne. ECF:[id number] C: 07/03/07 14:01 DOCUMENT: [id number] documented in this encounter Plan of Treatment Not on filedocumented as of this encounter Visit Diagnoses Not on filedocumented in this encounter Care Teams Academic Department Chair Relationship Specialty Start Date End Date Sim Asher MD PCP - General 07/19/10 02/28/13 [address] [place], [place] [address] documented as of this encounter
--- OUTSIDE RECORDS SUMMARY | 2022-01-14 10:50 | XMS_ITS | Encounter Summary ---
:1990 Author Organization [employer] Address [address] [place] [address] Care Team Providers Name Role Phone Sim Asher MD Primary Care Provider Encounter Details Date Type Department Care Team Description 06/25/2007 Office Visit [facility] [place] [address] [place] [address] [place], [place] [address] (Wo rk) Social History Tobacco Use Types Packs/Day Years Used Date Smoking Tobacco: Never Assessed Sex Assigned at Date Recorded Not on file documented as of this encounter Last Filed Vital Signs Vital Sign Reading Time Taken Comments Blood Pressure 107/63 06/25/2007 4:07 PM CDT Pulse 50 06/25/2007 4:07 PM CDT Temperature 36.6 ??C (97.9 ??F) 06/25/2007 4:07 PM CDT C: 36 .6 C Respiratory Rate 16 06/25/2007 4:07 PM CDT Oxygen Saturation - - Inhaled Oxygen Concentration - - Weight - - Height - - Body Mass Index - - documented in this encounter Progress Notes Franklin Shah MD - 06/25/2007 12:01 AM CDT Progress Notes signed by Franklin Shah MD at 06/28/07 1456 Author: Franklin Shah MD Service: (none) Author Type: Physician Filed: 08/07/10 0129 Note Time: 06/25/07 0001 Status: Signed Barytes Grinder: Franklin Shah MD (Physician) NAME: EDWARD DREW MR#: [id number] ACCT: [id number] VISIT: [id number] DICTATING CLINICIAN: FRANKLIN SHAH MD JOB: [id number] LOC: 520 CLINIC PROGRESS NOTE DATE OF VISIT: 06/25/2007 SUBJECTIVE: CHIEF COMPLAINT: Right ear pain. HPI: Pleasant 16-year-old comes in today complaining of right ear pain that has been going off and on for about a month. No recent cough or cold. No sinus congestion. No sore throat or cough. He is a swimmer. PAST MEDICAL HISTORY: None. PAST SURGICAL HISTORY: None. MEDICATIONS: Tetracycline. ADR/ALLERGIES: LATEX AND PENICILLIN. SOCIAL HISTORY: Nonsmoker. OBJECTIVE: VS: BP: 107/63. T: 97.8. P: 50. R: 16. GENERAL: Alert and oriented, no apparent distress. Tympanic membranes reveal a right otitis externa. It is very erythematous and pustular. It looks very infected, quite tender for the patient. There is no otitis media. There is no erythema or fluid behind the tympanic membrane. LUNGS: Clear. HEART: Regular. ASSESSMENT: Right otitis externa. PLAN: Cipro HC use as directed for the next 7 days. No swimming for 7 days. Follow up if symptoms persist or worsen, but hopefully this will resolve. KMM:[id number] C: 06/26/07 13:46 DOCUMENT: [id number] documented in this encounter Plan of Treatment Not on filedocumented as of this encounter Visit Diagnoses Not on filedocumented in this encounter Care Teams Metallography Teacher Relationship Specialty Start Date End Date Sim Asher MD PCP - General 07/19/10 02/28/13 [address] [place], [place] [address] documented as of this encounter
--- OUTSIDE RECORDS SUMMARY | 2022-01-14 10:50 | XMS_ITS | Encounter Summary ---
:1990 Author Organization [employer] Address [address] [place] [address] Care Team Providers Name Role Phone Sim Asher MD Primary Care Provider Reason for Visit Reason Comments Other Encounter Details Date Type Department Care Team Description 11/07/2004 Telephone [facility] Jayne Che RN Other [address] [place] [address] Social History Tobacco Use Types Packs/Day Years Used Date Smoking Tobacco: Never Assessed Sex Assigned at Date Recorded Not on file documented as of this encounter Progress Notes Jayne Che RN - 11/07/2004 7:11 PM CDT Phone Note filed by Jayne Che RN at 08/02/101927 Author: Jayne Che RN Service: (none) Author Type: Registered Nurse Filed: 08/02/101927 Note Time: 11/07/041910 Status: Signed Senior Pensions Administrator: Jayne Che RN (Registered Nurse) Phone Care Triage Note IMPRESSION: Swimmers Ear SYMPTOMS: Father said that son was swimming earlier today and did go under the water at one time; said that he felt a pop when he went under the water. Stayed out of the water for a period of time and then again went swimming. Now is complaining of a lot of pain in his left ear; father states that he is lying on the floor holding his ear because it hurts. No home care has been tried at this time. PATIENT INFORMATION: Problem List: Reviewed today in LastWord --- Allergies: Reviewed/updated today in LastWord --- Medications: Reviewed/updated today in LastWord INTERIM/HOME MANAGEMENT: Per pediatric protocol. Advised: call back if any other questions or concerns. Information given per: Pediatric Telephone Protocols, Torsten Hannah page on Swimmers Ear PLAN: DIRECTED TO GO TO URGENT CARE. Father will try homecare recommendations and see if ear feels better in the next hour. If son continues to have pain or has any new symptoms, father will have him seen at an urgent care. Urgent care information given to father. Patient/Caller agrees with plan and denies additional questions. Denies emergent symptoms Call Complete. Created on [id number] 7:11pm by JAYNE CHE A RELATIONS ASSOCIATE documented in this encounter Plan of Treatment Not on filedocumented as of this encounter Visit Diagnoses Not on filedocumented in this encounter Care Teams Housekeeping Associate Relationship Specialty Start Date End Date Sim Asher MD PCP - General 07/19/10 02/28/13 [address] [place] [address] documented as of this encounter
--- OUTSIDE RECORDS SUMMARY | 2022-01-14 10:50 | XMS_ITS | Encounter Summary ---
:1990 Author Organization [employer] Address [address] [place] [address] Care Team Providers Name Role Phone Sim Asher MD Primary Care Provider Encounter Details Date Type Department Care Team Description 04/21/2005 Office Visit [facility] Murphy, Luna5 Devika Martin APRN, [place] [address] [address] [phone] [place] [address] (Wo rk) Social History Tobacco Use Types Packs/Day Years Used Date Smoking Tobacco: Never Assessed Sex Assigned at Date Recorded Not on file documented as of this encounter Last Filed Vital Signs Vital Sign Reading Time Taken Comments Blood Pressure - - Pulse - - Temperature 36.4 ??C (97.5 ??F) 04/21/2005 10:21 AM C: 36.4 C PLEXIGLAS FORMER Respiratory Rate - - Oxygen Saturation - - Inhaled Oxygen Concentration - - Weight 69.4 kg (152 lb 15.6 oz) 04/21/2005 10:21 AM C: 69.4kg PLEXIGLAS FORMER Height - - Body Mass Index - - documented in this encounter Progress Notes Jessi Murphy APRN, EDWARD - 04/21/2005 12:01 AM CST Progress Notes signed by Jessi Murphy APRN, CNP at 04/21/05 1050 Author: ELLE Ragland Service: (none) Author Type: Nurse Practitioner Filed: 08/06/10 0907 Note Time: 04/21/05 0001 Status: Signed Physical Plant Manager: ELLE Ragland (Nurse Practitioner) Acute Clinic Visit IMPRESSION: Viral Syndrome Chief Complaint: sore throat and corupy sounding cough SUBJECTIVE: History of Present Illness: Pt. was accompanied by mother History given by the patient This illness began today Woke at 6:50 this AM with sx's Symptoms are stable No fever during this illness. Not wakeful Activity level has remained normal. No headache No rhinorrhea Sore throat Cough Barky cough Eating well Taking liquids well No emesis No diarrhea Denies SOB. Meds This Illness: Tried albuterol inhaler at 8am...no improvement Past History: Asthma Family History of asthma Adverse Drug Reactions & Chronic Medications: Patient's Adverse Drug Reactions were reviewed and updated today on the Health Profile screen of [facility] Chronic medications were reviewed and updated today on Health Profile in [facility]. OBJECTIVE: Weight: 153 Temperature: 97.6 degrees F. General: well appearing; alert and appropriate. Eyes: no injection or drainage. Ears: canals and tympanic membranes normal bilaterally. Nose: normal nares without drainage. Oropharynx: moist mucus membranes without ulcerations; tonsils symmetric without erythema or exudate. Neck: supple without adenopathy or goiter. Chest: clear to auscultation; normal effort Cardiac: regular rate without murmur. Skin: exam normal O2 Sat 100% Lab & X-Ray: Rapid Strep was negative. ASSESSMENT: Viral Syndrome PLAN: Symptomatic care. Encourage fluids and rest. Use nasal saline, acetaminophen, ibuprofen, or other OTC medications only as directed. Throat Culture pending If Strep culture is positive, nurse is to call in the following antibiotic: Azithromycin 12 mg/kg (or maximum of 500 mg) daily for 5 days. Return to clinic: Return immediately for any development of respiratory SOB. Treat symptomatically and return PRN otherwise. *SH~PC~EDMUND ~ Shorthand Note completed on: 04/21/2005 10:58 AM IGLAS FORMER documented in this encounter Plan of Treatment Not on filedocumented as of this encounter Visit Diagnoses Not on filedocumented in this encounter Care Teams Gas Engine Operator Generators Relationship Specialty Start Date End Date Sim Asher MD PCP - General 07/19/10 02/28/13 [address] [place], [place] [address] documented as of this encounter
--- OUTSIDE RECORDS SUMMARY | 2022-01-14 10:50 | XMS_ITS | Encounter Summary ---
:1990 Author Organization [employer] Address [address] [place] [address] Care Team Providers Name Role Phone Sim Asher MD Primary Care Provider Encounter Details Date Type Department Care Team Description 02/24/2009 PN Conversion Only [place] CONVERSION Eddie Weinberg MD [address] [place] [address] [place] [address] (Wo rk) Social History Tobacco Use Types Packs/Day Years Used Date Smoking Tobacco: Never Assessed Sex Assigned at Date Recorded Not on file documented as of this encounter Plan of Treatment Not on filedocumented as of this encounter Procedures Procedure Name Priority Date/Time Associated Comments Diagnosis SEXUALLY TRANSMITTED Routine 02/24/2009 2:08 PM R esults for this DISEASE PROBE REMEDIATION TECHNICIAN procedure are in the results section. URINALYSIS Routine 02/24/2009 1:54 PM Results f or this ROUTINE(MICRO IF POS) REMEDIATION TECHNICIAN proced ure are in the results section. URINALYSIS Routine 02/24/2009 1:54 PM Results f or this MICROSCOPIC REMEDIATION TECHNICIAN procedure are i n the results section. URINE CULTURE Routine 02/24/2009 1:54 PM Results for this REMEDIATION TECHNICIAN procedure are i n the results section. documented in this encounter Results Sexually Transmitted Disease Probe (02/24/2009 2:08 PM REMEDIATION TECHNICIAN) [facility] Method Time Signature Sexually SEE TEXT HP CONVERSION Transmitted Disease Probe Comment: Patient: EDWARD DREW Sexually Trans Disease Probe ?Collected: ??[id number] ??[id number] Source: Urine ? Processed: ??[id number] ??1800 Final Report ------ ?[id number] ??1245 No Chlamydia trachomatis detected by amp lified DNA assay No Neisseria gonorrhoeae detected by amp lified DNA assay The [employer] Amplified DNA assay is lalitha red by the FDA for non-medicolegal diagnostic testing in the adult population. Specimen (Source) Anatomical Collection Method Collection Time Re ceived Time Location / / Volume Laterality 02/24/2009 2:08 PM REMEDIATION TECHNICIAN Eddie Weinberg MD LAB_1 Performing Organization Address City/State/ZIP Code Phon e Number HP CONVERSION Urine Culture (02/24/2009 1:54 PM REMEDIATION TECHNICIAN) [facility] Time Signature Urine Culture SEE TEXT HP CONVERSION Comment: Patient: EDWARD DREW Culture, Urine ?Collected: ??[id number] ??[id number] Source: Clean Ca ?Processed: ??[id number] ??1354 Final Report ------ ?[id number] ??1131 No growth Specimen (Source) Anatomical Collection Method Collection Time Re ceived Time Location / / Volume Laterality 02/24/2009 1:54 PM REMEDIATION TECHNICIAN Eddie Weinberg MD LAB_1 Performing Organization Address [facility] Phon e Number HP CONVERSION URINALYSIS MICROSCOPIC (02/24/2009 1:54 PM REMEDIATION TECHNICIAN) Analysis Performed At Patho logist Time Signature White Blood Negative 0 - 3 HP CONVERSION Cells Urine Red Blood Negative 0 - 2 HP CONVERSION Cells Urine Specimen (Source) Anatomical Collection Method Collection Time Re ceived Time Location / / Volume Laterality 02/24/2009 1:54 PM REMEDIATION TECHNICIAN Eddie Weinberg MD LAB_1 Performing Organization Address [facility] Phon e Number HP CONVERSION URINALYSIS ROUTINE(MICRO IF POS) (02/24/2009 1:54 PM REMEDIATION TECHNICIAN) Patholo gist Method Time Signature Turbidity Clear No normal HP CONVERSION range pH Urine 6.5 4.5 - 7.5 HP CONVERSION Protein Urine Negative Neg-Trac HP CONVERSION Glucose, Negative Neg-Trac HP CONVERSION Qualitative U Ketones Negative Negative HP CONVERSION U BILI Negative Negative HP CONVERSION Blood Urine Negative Negative HP CONVERSION Nitrite Urine Negative Negative HP CONVERSION Leukocyte Negative Negative HP CONVERSION Esterase Urine Urobilinogen Negative 0.2 - 1.0 HP CONVERSION Urine U Specific 1.015 1.005 - 25 HP CONVERSION [place] Specimen (Source) Anatomical Collection Method Collection Time Re ceived Time Location / / Volume Laterality 02/24/2009 1:54 PM REMEDIATION TECHNICIAN Eddie Weinberg MD LAB_1 Performing Organization Address [facility] Phon e Number HP CONVERSION documented in this encounter Visit Diagnoses Not on filedocumented in this encounter Care Teams Product Assurance Engineer Relationship Specialty Start Date End Date Sim Asher MD PCP - General 07/19/10 02/28/13 [address] [place] [address] documented as of this encounter
--- OUTSIDE RECORDS SUMMARY | 2022-01-14 10:50 | XMS_ITS | Encounter Summary ---
:1990 Author Organization [facility] Address [address] [place] [address] Care Team Providers Name Role Phone Sim Asher MD Primary Care Provider Encounter Details Date Type Department Care Team Description 04/13/2005 Nursing Visit [facility] Charli Bean MD [address] [place] [address] [facility] [address] [place] [phone] (Wo rk) Social History Tobacco Use Types Packs/Day Years Used Date Smoking Tobacco: Never Assessed Sex Assigned at Date Recorded Not on file documented as of this encounter Plan of Treatment Not on filedocumented as of this encounter Visit Diagnoses Not on filedocumented in this encounter Care Teams Master Barber Relationship Specialty Start Date End Date Sim Asher MD PCP - General 07/19/10 02/28/[address] [place] [id number] documented as of this encounter
--- OUTSIDE RECORDS SUMMARY | 2022-01-14 10:50 | XMS_ITS | Encounter Summary ---
:1990 Author Organization [facility] Address [address] [place] [address] Care Team Providers Name Role Phone Sim Asher MD Primary Care Provider Encounter Details Date Type Department Care Team Description 08/03/2004 PN Conversion Only [place] CONVERSION [address] [place] [address] Social History Tobacco Use Types Packs/Day Years Used Date Smoking Tobacco: Never Assessed Sex Assigned at Date Recorded Not on file documented as of this encounter Plan of Treatment Not on filedocumented as of this encounter Visit Diagnoses Not on filedocumented in this encounter Care Teams Drill Runner Helper Relationship Specialty Start Date End Date Sim Asher MD PCP - General 07/19/10 02/28/[address] [place] [address] [id number] documented as of this encounter
--- OUTSIDE RECORDS SUMMARY | 2022-01-14 10:50 | XMS_ITS | Encounter Summary ---
:1990 Author Organization [employer] Address [address] [address] Care Team Providers Name Role Phone Sim Asher MD Primary Care Provider Encounter Details Date Type Department Care Team Description 10/08/2007 Office Visit [facility] Sim Asher MD [address] [facility] [place] [address] [place] [address] [phone] (Wo rk) Social History Tobacco Use Types Packs/Day Years Used Date Smoking Tobacco: Never Assessed Sex Assigned at Date Recorded Not on file documented as of this encounter Last Filed Vital Signs Vital Sign Reading Time Taken Comments Blood Pressure 98/74 10/08/2007 4:11 PM CDT Pulse 46 10/08/2007 4:11 PM CDT Temperature - - Respiratory Rate - - Oxygen Saturation - - Inhaled Oxygen Concentration - - Weight 88.5 kg (195 lb) 10/08/2007 4:11 PM CDT C: 88.5k g Height 188 cm (6' 2) 10/08/2007 4:11 PM CDT C: 188.0c m Body Mass Index 25.04 10/08/2007 4:11 PM CDT Body Mass Index Percentile 90.80 % 10/08/2007 4:11 PM CD T Growth Chart: [facility] (Boys, 2-20 Years) documented in this encounter Progress Notes Sim Asher MD - 10/08/2007 12:01 AM CDT H&P signed by Sim Asher MD at 10/08/07 2353 Author: Sim Asher MD Service: (none) Author Type: Physician Filed: 08/07/10 0503 Note Time: 10/08/072012 Status: Signed Die Cast Technician: Sim Asher MD (Physician) Well Child/Adolescent Visit or Sports Physical IMPRESSION: Well adolescent visit. Asthma. Demographics: Accompanied by mother. Patient is 17 years old. Patient is in tenth grade of school. Interval History: Hx of Latex allergy. Food avoidance. Asthma triggers are exercise and uri. Needs refill of alb. Mild intermittent. Private Branch Exchange Service Adviser camp physical. Acne followed by derm. Pain right anterior quad after really hard long kick. Eats 3 meals per day with a varied diet. Has adequate protein intake. Adequate milk intake. Calcium intake adequate. No concerns about sleep habits. Has good sleep habits. No snoring or apnea observed. No concerns about social interactions. Appears to be emotionally stable. Good interactions with peers. School / Activities: School: No concerns about school. Activity: Gets regular activity. Organized Activity: scouting, soccer, swimming, track and/or cross country, Past History: Adverse drug reactions: Patient's Adverse Drug Reactions were reviewed and updated today on the Health Profile screen of [facility]. Medications: Reviewed and updated today on Health Profile in [facility]. Food Allergies: Cantelope, Kiwi, Banana. Previous Illness: History of asthma. Except for items noted above, remainder of complete review of systems was negative. Social / Family History: Unchanged from visit dated 08/14/2006. Smoking, chewing, alcohol, other drugs, no sexual activity. PHYSICAL EXAM: (See online scanned documents for percentile graphs) Vital signs updated and reviewed in [facility]. General Appearance: Alert, comfortable. HEENT: Canals/TM's normal, conjunctivae non-injected, sclerae anicteric, no strabismus, oral mucosa 1moist without lesions. Neck: Supple, no mass or goiter. Chest: Clear with 2normal effort. CV: Regular rate w/o murmur, pulses normal to palpation. Abdomen: Soft, nontender without hepatosplenomegaly or masses. Extremities: 4Full range of motion without abnormality. Neuro: Normal tone and symmetric 5reflexes. Spine: Grossly normal. Skin: No abnormal rash. Weight: Appears proportional to height. Breasts: Normal development without masses. /Pelvic: Testes descended and normal bilaterally, no inguinal hernia, normal anus, circumcised without lesions. Genitalia & Pubic Hair: Hansel stage 4. Sports: Eyes: No anisocoria. Eyes: Fundi normal in areas seen. ASSESSMENT: Well adolescent visit. Asthma. PLAN: Immunizations: Varicella vaccine given. Hepatitis A vaccine given. Sports Clearance: Cleared for all sports activities. General Counseling: Anticipatory Guidance Handout given and discussed where appropriate. Parental concerns discussed. Parents reassured about concerns. Pertinent handout(s) given. Provided counseling about risks and benefits of vaccinations. Medical: Asthma: Home Inhaled: Albuterol MDI 2 puffs with spacer TID-QID, or up to q 4 hours PRN until cough resolves. *SH~PC~WSP ~ Shorthand Note completed on: 10/08/2007 4:56 PM documented in this encounter Plan of Treatment Not on filedocumented as of this encounter Visit Diagnoses Not on filedocumented in this encounter Care Teams Hydraulic Bull Riveter Operator Relationship Specialty Start Date End Date Sim Asher MD PCP - General 07/19/10 02/28/13 [address] [place] [address] documented as of this encounter
--- OUTSIDE RECORDS SUMMARY | 2022-01-14 10:50 | XMS_ITS | Encounter Summary ---
:1990 Author Organization [facility] Address [address] [place] [address] Care Team Providers Name Role Phone Sim Asher MD Primary Care Provider Encounter Details Date Type Department Care Team Description 05/03/2007 Office Visit [facility] Linda Quinonez APRN, [address] [place] [address] [facility] [phone] [place] [address] (Wo rk) Social History Tobacco Use Types Packs/Day Years Used Date Smoking Tobacco: Never Assessed Sex Assigned at Date Recorded Not on file documented as of this encounter Progress Notes Linda Shaffer APRN, CNP - 05/03/2007 12:01 AM CST Progress Notes signed by Linda Shaffer APRN, CNP at 05/03/07 1339 Author: DEMETRA Perez Service: (none) Author Type: Nurse Practitioner Filed: 08/07/10 0013 Note Time: 05/03/07 0001 Status: Signed Line Operator: DEMETRA Perez (Nurse Practitioner) NAME: EDWARD DREW MR#: [id number] ACCT: [id number] VISIT: [id number] DICTATING CLINICIAN: LINDA SHAFFER CNP JOB: [id number] LOC: 427 CLINIC PROGRESS NOTE DATE OF VISIT: 05/03/2007 SUBJECTIVE: Edward is a 16-year-old young man who is in today for acne. He states it has been bad over the last couple of years but just got recently worse over the last year with a lot of stuff going on over his upper shoulders, back, and chest. He is doing weightlifting. He is very active in swimming, soccer, and track, but is not using any body-building supplements. His father has a significant history of acne and was actually treated at the [facility]. He is not currently using any specific soaps at this point in time. CURRENT MEDICATIONS: None. ADR/ALLERGIES: PENICILLIN. PAST MEDICAL HISTORY: Shows history of hospitalizations as for asthmatic episodes. No surgeries. He has had a leg fracture and an arm fracture. SOCIAL HISTORY: He attends [employer] where he is in ninth grade. Again, active in swimming, soccer, and track. OBJECTIVE: This is a well-developed, well-nourished, very well-muscled, young man who is alert and oriented. SKIN: Exam shows some healing inflammatory papules over the upper shoulders. He has acne lesions noted over his face, his cheek, his chin. He does appear to have somewhat more dry skin. He does have some comedones seen. ASSESSMENT: Acne. PLAN: We did talk about the pathophysiology of acne and relationship to hormones and heredity. Edward was started on a 10% Benzac AC wash, 226 mL given to wash his back with on a daily basis, 3 refills granted. Warned about the bleaching properties of this. He was started on BenzaClin gel 50 g given to apply a pea-sized amount to a clean, dry face nightly, warned about the bleaching properties of this, 3 refills were granted. He was started on tetracycline 500 mg 1 b.i.d., given #60, four refills granted. He is warned about the photosensitizing effect of this, as well as the calcium restriction. He will apply a 1% clindamycin topical solution, 60 mL given with 3 refills to the back area on a twice-a-day basis. We did talk about the fact that it may take up to 2 months before he sees any significant improvement in his acne, and he may use any noncomedogenic moisturizer of his choice if he is feeling dry. He is to return to see me in 2 months. IMPRESSION: Acne. 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
--- OUTSIDE RECORDS SUMMARY | 2022-01-14 10:51 | XMS_ITS | Encounter Summary ---
:1990 Author Organization [employer] Address [address] [place] [address] Care Team Providers Name Role Phone Sim Asher MD Primary Care Provider Encounter Details Date Type Department Care Team Description 04/29/2004 Office Visit [facility], [address] APRN, [place] [address] [address] [phone] [place], [place] [phone] (Wo rk) Social History Tobacco Use Types Packs/Day Years Used Date Smoking Tobacco: Never Assessed Sex Assigned at Date Recorded Not on file documented as of this encounter Progress Notes Jessi Murphy APRN, CNP - 04/29/2004 12:01 AM CST Progress Notes signed by Jessi Murphy APRN, CNP at 05/04/04 1714 Author: ELLE Saab Service: (none) Author Type: Nurse Practitioner Filed: 08/06/10 0223 Note Time: 04/29/04 0001 Status: Signed Health Services Coordinator: ELLE Saab (Nurse Practitioner) NAME: EDWARD DREW MR: [id number] ACCT: [id number] VISIT: [id number] DICTATING CLINICIAN: ELLE SAAB JOB: [id number] CLINIC PROGRESS NOTE DATE OF VISIT: 04/29/2004 SUBJECTIVE: Edward is in today because of a three week history of cough. Describes the cough as an annoying, deep, barking sounding cough. Says the cough has not gotten any better since Mago. Has had intermittent nasal congestion. Has occasional sore throat and headache. Is still eating okay. Normal activity and energy. Sleeping interrupted due to cough. Exposure history is significant for two others in the family that are being seen for prolonged cough. Edward's past history is significant for asthma. He has been using his albuterol inhaler as needed over the last three weeks and has not recognized problems with wheezing. ADR/ALLERGIES: PENICILLIN AND LATEX. OBJECTIVE: VS: T: 99.5. Wt: 133-1/2 lb. Edward looks fatigued but otherwise in no apparent pain. No shortness of breath. HEENT: Negative. NECK: Supple. LUNGS: Clear and equal with no wheezing, rales, rhonchi. ASSESSMENT: Prolonged cough. Possible pertussis. PLAN: PCR sent. Patient started on Zithromax 10 mg per kilo daily times five days. Symptomatic care. Will call with PCR results. EAC:[id number] C: 04/30/04 08:09 DOCUMENT: [id number] NT REPRESENTATIVE documented in this encounter Plan of Treatment Not on filedocumented as of this encounter Visit Diagnoses Not on filedocumented in this encounter Care Teams Health Coordinator Relationship Specialty Start Date End Date Sim Asher MD PCP - General 07/19/10 02/28/13 [address] [place], [place] [address] documented as of this encounter
--- OUTSIDE RECORDS SUMMARY | 2022-01-14 10:51 | XMS_ITS | Encounter Summary ---
:1990 Author Organization [facility] Address [address] [place] [address] Care Team Providers Name Role Phone Sim Asher MD Primary Care Provider Encounter Details Date Type Department Care Team Description 08/08/2002 PN Conversion Only [place] CONVERSION Katherine, [address] CABLE TOOL DRILLER, [place] [address] [address] [place] [phone] (Wo rk) Social History Tobacco Use Types Packs/Day Years Used Date Smoking Tobacco: Never Assessed Sex Assigned at Date Recorded Not on file documented as of this encounter Plan of Treatment Not on filedocumented as of this encounter Procedures Procedure Name Priority Date/Time Associated Diagnosis Comme nts STREP GROUP A Routine 08/08/2002 10:53 AM Results for this ANTIGEN TEST CDT procedure are i n the results section. BETA STREP FOLLOWUP Routine 08/08/2002 10:53 AM R esults for this CDT procedure are i n the results section. documented in this encounter Results Strep Group A Antigen Test (08/08/2002 10:53 AM CDT) Analysis Performed At Patho logist Time Signature Strep Group A Negative Negative HP CONVERSION Antigen Test Comment: Culture to follow. Specimen (Source) Anatomical Collection Method Collection Time Re ceived Time Location / / Volume Laterality 08/08/2002 10:53 AM CDT Jessi Murphy APRN, CHIEF SECURITY OFFICER LAB_1 Performing Organization Address City/State/ZIP Code Phon e Number HP CONVERSION Beta Strep Followup (08/08/2002 10:53 AM CDT) P athologist Signature Strep Screen SEE TEXT HP CONVERSION Comment: Patient: EDWARD DREW Rapid Strep Follow up Culture @ ? Collected: ??[id number] ??[id number] Source: Throat ?Processed: ??[id number] ??1243 Final Report ------ ?[id number] ??0800 No beta hemolytic Strep group A isolated . @ = Rapid F/U Cult Performed at ??[address] [place], [place] ?[address] Specimen (Source) Anatomical Collection Method Collection Time Re ceived Time Location / / Volume Laterality 08/08/2002 10:53 AM CDT Jessi Murphy APRN, CHIEF SECURITY OFFICER LAB_1 Performing Organization Address City/State/ZIP Code Phon e Number HP CONVERSION documented in this encounter Visit Diagnoses Not on filedocumented in this encounter Care Teams Weed Eradicator Relationship Specialty Start Date End Date Sim Asher MD PCP - General 07/19/10 02/28/13 [address] [place], [place] [id number] documented as of this encounter
--- OUTSIDE RECORDS SUMMARY | 2022-01-14 10:51 | XMS_ITS | Encounter Summary ---
:1990 Author Organization [facility] Address [address] [place] [address] Care Team Providers Name Role Phone Sim Asher MD Primary Care Provider Encounter Details Date Type Department Care Team Description 04/29/2004 PN Conversion Only [facility] [place] [address] [place] [id number] Social History Tobacco Use Types Packs/Day Years Used Date Smoking Tobacco: Never Assessed Sex Assigned at Date Recorded Not on file documented as of this encounter Plan of Treatment Not on filedocumented as of this encounter Visit Diagnoses Not on filedocumented in this encounter Care Teams Armoured Car Escort Relationship Specialty Start Date End Date Sim Asher MD PCP - General 07/19/10 02/28/[address] [id number] documented as of this encounter
--- OUTSIDE RECORDS SUMMARY | 2022-01-14 10:51 | XMS_ITS | Encounter Summary ---
:1990 Author Organization [employer] Address [address] [place] [address] Care Team Providers Name Role Phone Sim Asher MD Primary Care Provider Encounter Details Date Type Department Care Team Description 07/12/2004 Nursing Visit [facility] Elvi Ferrara MD [facility] [address] [place] [address] [address] [place] [id number] [phone] (Wo rk) Social History Tobacco Use Types Packs/Day Years Used Date Smoking Tobacco: Never Assessed Sex Assigned at Date Recorded Not on file documented as of this encounter Plan of Treatment Not on filedocumented as of this encounter Visit Diagnoses Not on filedocumented in this encounter Care Teams Shipboard Intelligence Analyst Relationship Specialty Start Date End Date Sim Asher MD PCP - General 07/19/10 02/28/[address] [place] [id number] documented as of this encounter
--- OUTSIDE RECORDS SUMMARY | 2022-01-14 10:51 | XMS_ITS | Encounter Summary ---
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 causes child to miss 3 or more days of school. -Symptoms progress or persist > 3 weeks. -Any other questions or concerns MISC COMMENTS... referenced fever guideline also CALL BY TRANG RITCHIE RN 05/20/2002 05:36PM [phone] ADDENDUM: Kathya Slater MD - 05/18/2002 12:01 AM CST Progress Notes signed by at 06/02/02 3765 Author: Kathya Slater MD Service: (none) Author Type: Physician Filed: 08/05/10 1209 Note Time: 05/18/02 0001 Status: Signed Programming Development Project Manager: Kathya Slater MD (Physician) IMPRESSION: Cough. SUBJECTIVE: A 11-year-old white male here with his mom. He has had a cough for three days and some fever. Symptoms actually started about a week and a half ago. He was seen by Dr. Weinberg, his primary physician at the [facility] and a chest x-ray was performed on 05/08/02. This was negative. Mom says this cough is more croupy. She said the patient has always seemed to have a lot of trouble with respiratory things. He was hospitalized at one point when he was younger due to a croupy cough. Patient had been on Keflex for strep throat and completed that course. ADR/ALLERGIES: PENICILLIN. MEDICATIONS: None. OBJECTIVE: VS: T: 99.7. P: 84. R: 18. Wt: 97-1/2 lb. O2 sat: 97% on room air. He does have a deep cough which does sound more croupy. His TMs are clear. Oropharynx is moist without erythema. Chest does seem a little tight. He is given an albuterol neb which he said helped. I think he had improved air flow on post auscultation. ASSESSMENT: Cough. PLAN: Albuterol inhaler 34 grams 2 puffs q.4h. p.r.n. wheezing, 2 refills are given. He can keep one inhaler at school and one at home. He is given a note to use this at school. Also, start prednisone 20 mg 1 b.i.d. with food #10. Follow up with Dr. Weinberg in about a week to 10 days. TT: CT: SMO:[id number] C: 05/19/02 16:26 DOCUMENT: [id number] Conversion, [facility] - 05/18/2002 12:01 AM CST Phone Note signed by at 05/18/02 1207 Author: [facility] Conversion Service: (none) Author Type: (none) Filed: 08/05/10 1209 Note Time: 05/18/02 0001 Status: Signed Programming Development Project Manager: [facility] Conversion IMPRESSION: Croup-(child)-triage guideline - REFERRED PATIENT TO URGENT CARE AT [facility] * HOME PHONE:[phone] * SUBJECTIVE: PATIENT COMPLAINS OF... Croup-like cough -started 3 days ago, has coughing fits mom said. Persistent cough and/or wheezing - mom gone for a short time,when she got home,told her he couldn't breath for 3 seconds. Sore throat started again yesterday. ALLERGIES/SENSITIVITIES... PCN CURRENT MEDICATIONS... None PERTINENT PAST HISTORY... Healthy 12/18/01 ASSESSMENT: Croup-(child)-triage guideline DISPOSITION: EMERGENCY PLAN: RECOMMENDED THE FOLLOWING... Referenced guideline Croup-(child)-triage guideline. Schedule stat appointment with provider Mom will take pt to urgent care. Patient information given per Croup nurse guideline. Verbalizes understanding and agrees with phone care recommendation INFORMED PATIENT TO CALLBACK IF... Reasons to call back reviewed- caller verbalizes understanding of the need to call back for the following reasons: -Child is getting worse -Any other questions or concerns CALL BY MARCK VARGAS RN 05/18/2002 11:45AM [phone] ADDENDUM: Rylan Weinberg MD - 05/08/2002 12:01 AM CST Progress Notes signed by at 05/22/02 0950 Author: Rylan Weinberg MD Service: (none) Author Type: Physician Filed: 08/05/10 1154 Note Time: 05/08/02 0001 Status: Signed Programming Development Project Manager: Rylan Weinberg MD (Physician) IMPRESSION: Upper respiratory infection. SUBJECTIVE: Edward comes in today for pain in his chest with breathing and also short of breath last week when he was playing basketball. He is on Keflex for Strep throat recently. No fever or vomiting. Brother is sick with fever and congestion. He is also on medicine for Strep currently. MEDICATIONS: Keflex. ADR/ALLERGIES: PENICILLIN. OBJECTIVE: VS: Wt: 97-1/2 lb. HEENT: TMs and pharynx normal. CHEST: Sounds clear. ABDOMEN: Soft, nontender. Chest x-ray was taken and chest looks clear. ASSESSMENT: Pain with breathing. Probable viral syndrome. PLAN: Discussed with mom observing at this time. Finish the Keflex for Strep. Return or call if increased problems or distress or increasing breathing difficulty. Mom says he did seem to be short of breath after the basketball game for awhile last week, and if he is starting to do this more, or wheezing, may want to try him on an inhaler as well. TT: CT: BRIDGET:[id number] C: 05/09/02 11:54 DOCUMENT: [id number] Chloe [facility] - 05/04/2002 12:01 AM CST Phone Note signed by at 05/04/02 1252 Author: Don Conversion Service: (none) Author Type: (none) Filed: 08/05/10 1149 Note Time: 05/04/02 0001 Status: Signed Programming Development Project Manager: Don Corona IMPRESSION: Strep pharyngitis-(child)-triage guideline SUBJECTIVE: PATIENT COMPLAINS OF... Sore * HOME PHONE:[phone] * throat, positive culture for strep pharyngitis ALLERGIES/SENSITIVITIES... Pencilllin CURRENT MEDICATIONS... None 08/02/01 12/18/01 PERTINENT PAST HISTORY... Healthy 12/18/01 ASSESSMENT: Strep pharyngitis-(child)-triage guideline DISPOSITION: HOME CARE PLAN: RECOMMENDED THE FOLLOWING... Referenced guideline Strep pharyngitis-(child)-triage guideline. Reviewed information from handout for notifying patient of positive strep screen -Encourage liquids: 8-10 regular glasses each day. Juice and water are best. Cool beverages or warm liquids are most soothing. -Encourage soft foods or flavored frozen desserts -Encourage extra rest so the body can use it's natural resources to recuperate Verbalizes understanding and agrees with phone care recommendation INFORMED PATIENT TO CALLBACK IF... Caregiver to call back if: -No significant improvement after 48 hours of medication -Any other questions or concerns MISC COMMENTS... Father returning call regarding positive strep screen. Pt. is already on Cephalexin 250mg tablets one Bid for 10 days._Will call back with any further questions or concerns. CALL BY WESTON COLVIN RN 05/04/2002 12:50PM [phone] ADDENDUM: Chloe, Don - 05/04/2002 12:01 AM CST Phone Note signed by at 05/04/02 8660 Author: Don Conversion Service: (none) Author Type: (none) Filed: 08/05/10 1149 Note Time: 05/04/02 0001 Status: Signed Programming Development Project Manager: Don Corona IMPRESSION: Positive Strep SUBJECTIVE: ALLERGIES/SENSITIVITIES... * HOME PHONE:[phone] * Pencilllin 08/02/01 12/18/01 * CONTACT PHONE:[phone] * CURRENT MEDICATIONS... None * Parents * 08/02/01 12/18/01 PERTINENT PAST HISTORY... Healthy 12/18/01 ASSESSMENT: Positive Strep DISPOSITION: NO DISPOSITION GIVEN PLAN[place] [facility]... Left message with sibbling to call MD office when they get home. CALL BY MARCK VARGAS RN 05/04/2002 12:11PM [phone] ADDENDUM: <> 05/04/2002 12:31PM by MARCK VARGAS RN: Dad got message,not home yet.States pt was given medication,doesn't know what it is or how much. Will call back with that information when get home. NURSE FOLLOW UP NEEDED. <> 05/04/2002 12:53PM by WESTON COLVIN RN: Father called back and pt. has been started on Cephalexin 250mg Bid X 10 days. See new note. Rylan Weinberg MD - 05/03/2002 12:01 AM CST Progress Notes signed by at 05/22/02 0950 Author: Rylan Weinberg MD Service: (none) Author Type: Physician Filed: 08/05/10 1148 Note Time: 05/03/02 0001 Status: Signed Programming Development Project Manager: Rylan Weinberg MD (Physician) IMPRESSION: Pharyngitis. SUBJECTIVE: Edward comes in today for upper respiratory infection, congestion, sore throat, stomachache. Was seen last week, complained of ear pain, stomach pains as well. Mom took me aside before the appointment and said that she and her are getting this week. Was exposed to strep this week. Brother is positive for strep today. ADR/ALLERGIES: POSSIBLY ALLERGIC TO PENICILLIN. OBJECTIVE: VS: Wt: 96 lb. TMs normal. Pharynx mildly injected. CHEST: Clear. ABDOMEN: Soft, nontender. ASSESSMENT: Pharyngitis. Throat culture arcs are positive. PLAN: Keflex 250 capsules, two capsules b.i.d. times ten days. TT: CT: MARCELL:[id number] C: 05/05/02 13:16 DOCUMENT: [id number] MARKER Rylan Weinberg MD - 04/26/2002 12:01 AM CST Progress Notes signed by at 06/08/022058 Author: Rylan Weinberg MD Service: (none) Author Type: Physician Filed: 08/05/10 1137 Note Time: 04/26/022058 Status: Signed Programming Development Project Manager: Rylan Weinberg MD (Physician) IMPRESSION: Upper respiratory infection. SUBJECTIVE: Edward comes in today for a possible ear infection. He was in for a sore throat and a throat culture today, then complained of his ear and was scheduled for check. He has had a little cough, a low grade fever, 99.2, two days of sore throat. No vomiting, diarrhea. A little stomachache yesterday, no vomiting. Complains of his left ear hurting this morning. ADR/ALLERGIES: NO ALLERGIES. OBJECTIVE: VS: T: 98.1. Wt: 93. TMs and pharynx normal. CHEST: Clear. ABDOMEN: Soft, nontender. ASSESSMENT: Upper respiratory infection. PLAN: Symptomatic care. Tylenol, fluids, rest. Return or call if increased problems or distress. TT: CT: [facility]:[id number] C: 04/26/02 20:49 DOCUMENT: [id number] Conversion, Imr - 12/18/2001 12:01 AM CDT Phone Note signed by at 12/18/01 9663 Author: Don Corona Service: (none) Author Type: (none) Filed: 08/05/1037 Note Time: 12/18/012058 Status: Signed Programming Development Project Manager: Don Corona IMPRESSION: Upper back pain following playing on tramoline, landing all durled up. - REFERRED PATIENT TO URGENT CARE AT [facility] * HOME PHONE:[phone] * SUBJECTIVE: PATIENT COMPLAINS OF... Mom calling, pt on trampoline yesterday, and has complained of upper back_pain since. Spoke with pt. He landed in center of tramp all cur led up and has had pain between shoulder blades since. Pain worse with any jarring, like running or jogging. Pain worse when he moves his arms. Denies tingling in his arms. Unclear if any weakness in ar ms._No pain in neck. ALLERGIES/SENSITIVITIES... Pencilllin 08/02/01 12/18/01 CURRENT MEDICATIONS... None 08/02/01 12/18/01 PERTINENT PAST HISTORY... Healthy 12/18/01 ASSESSMENT: Upper back pain following playing on tramoline, landing all durled up . DISPOSITION: SEMI-URGENT PLAN: RECOMMENDED THE FOLLOWING... Recommend pt be seen in Urgent Care this evening. Mom agrees to bring pt to Urgent Care this evening. Verbalizes understanding and agrees with phone care recommendation INFORMED PATIENT TO CALLBACK IF... Questions, concerns, worsening of sx. CALL BY KENZIE CHAVES RN 12/18/2001 05:08PM [phone] ADDENDUM: Chari Weinberg MD - 12/18/2001 12:01 AM CDT Progress Notes signed by at 06/08/022058 Author: Chari Weinberg MD Service: (none) Author Type: Physician Filed: 08/05/1037 Note Time: 12/18/012058 Status: Signed Programming Development Project Manager: Chari Weinberg MD (Physician) IMPRESSION: Upper mid thoracic strain. SUBJECTIVE: Chief Complaint: Back pain. HPI: This is a pleasant 11-year-old seen with his mom. He was jumping on the trampoline yesterday when he fell backwards and landed on his back. He had pain and stopped jumping. He did not hit any of the edges or hard pieces on it. He came in to see his mom and was crying, she used some Tylenol on it, he was able to sleep through the night. They have not given him any other meds today. He says it was a little bit sore during classes today. Denies any numbness or tingling down the arms. They have not used any heat or ice. PAST MEDICAL HISTORY: Negative. MEDICATIONS: None. ADR/ALLERGIES: PENICILLIN. OBJECTIVE: VS: T: 98.6. P: 74. R: 24. Wt: 90 lb. Alert, cooperative, nontoxic. NECK: Supple. CV: Regular rate and rhythm. No murmur. LUNGS: Clear to auscultation with good air exchange in all lung wright. MUSCULOSKELETAL: Neck full range of motion with just a little bit of pain in the upper back when he flexes his chin to his chest. Shoulders, he has full range of motion of both arms. He has slight tenderness to the upper thoracic spine to palpation. No paraspinal muscle tenderness. He has normal shoulder shrug strength. Normal strength, sensation, reflexes in the upper extremities. ASSESSMENT: Upper mid thoracic strain. PLAN: Ice today then heat, [id number]-[id number]-[id number] analgesics. Return to usual activities as he is able. Should there be any further problems than they should have him reevaluated. TT: CT: SMG:[id number] C: DOCUMENT: [id number] MARKER Conversion, [facility] - 08/12/2001 12:01 AM CDT Progress Notes signed by at 06/08/02 0001 Author: [facility] Conversion Service: (none) Author Type: (none) Filed: 08/05/10 0543 Note Time: 08/12/01 0001 Status: Signed Programming Development Project Manager: Don Conversion IMPRESSION: Otalgia. Tick bite. SUBJECTIVE: This 11-year-old white male presents to urgent care for evaluation of ear pain. No cold symptoms. No runny nose. No fever or chills. Has had ear pain over the last day or so. Has had a number of ear infections in the last year. Problem 2: Had a large dark black tick bite him on the back of the neck, would like to have this evaluated. ADR/ALLERGIES: PENICILLIN. MEDICATIONS: Eardrops. PAST MEDICAL HISTORY: Recent otitis media. OBJECTIVE: VS/GEN: T: 98.4. P: 60. R: 24. Age: 11. Wt: 86 lb. Well-developed, well-nourished white male, no acute distress. HEENT: Head is otherwise normocephalic. Eyes: Sclerae white, conjunctivae pink. Corneas and lenses are clear. PERRLA, EOMI bilaterally. Fundi are benign bilaterally. Ears: TMs intact bilaterally, without erythema or exudate. Nose is patent. Mouth : Mucosa moist. Uvula midline. Voice is resonant, without hoarseness. NECK: Supple, without lymphadenopathy or thyromegaly. SKIN: Examination of the skin reveals a small puncture site in the back of the neck, just to the right of the spine, at the base of the skull. No target lesions. No pus or discharge. No sign of infection or foreign body. ASSESSMENT: 1. Otalgia. 2. Tick bite. PLAN: Bacitracin to the tick bite, monitor for infection or target rash. For the ear, recommended Advil, heating pad, some gum chewing and monitoring pain, returning as needed if questions develop or problems persist. TT: CT: TJL:[id number] C: DOCUMENT: [id number] SCHEDULED RESOURCE: SENTHIL MCGOVERN / ELIZA Conversion, [facility] - 08/02/2001 12:01 AM CDT Phone Note signed by at 08/02/012029 Author: Don Conversion Service: (none) Author Type: (none) Filed: 08/05/10 0530 Note Time: 08/02/01 0001 Status: Signed Programming Development Project Manager: Don Corona IMPRESSION: Rash-(child)-triage guideline SUBJECTIVE: PATIENT COMPLAINS OF... Rash, * HOME PHONE: [phone] * denies tenderness or any urgent or semi-urgent symptoms. Onset this afternoon. Located from elbows down to wrists. Tops of hands. Blotchy patches. Red. Blanches to white. Slightly elevated. Itches. Activity level normal. ; ALLERGIES/SENSITIVITIES... Pencilllin 08/02/01 CURRENT MEDICATIONS... None 08/02/01 PERTINENT PAST HISTORY... OM 08/02/01 ASSESSMENT: Rash-(child)-triage guideline DISPOSITION: HOME CARE PLAN: RECOMMENDED THE FOLLOWING... Referenced guideline Rash-(child)-triage guideline. -Try to avoid irritants -Give cool baths, or apply cool compresses -Give OTC Benadryl . Mother voiced understanding and agreed with plan of care. Patient information given per Rash nurse guidelines. INFORMED PATIENT TO CALLBACK IF... Reasons to call back reviewed- caller verbalizes understanding of the need to call back for the following reasons: -Symptoms persist or worsen -Any other questions or concerns Call taken by CYNDY IQBAL 08/02/2001 08:23 PM ADDENDUM: MARKER Rylan Weinberg MD - 05/10/2001 12:01 AM CST Progress Notes signed by Rylan Weinberg MD at 06/14/01 4372 Author: Rylan Weinberg MD Service: (none) Author Type: Physician Filed: 08/05/10 0332 Note Time: 05/10/01 0001 Status: Signed Programming Development Project Manager: Rylan Weinberg MD (Physician) IMPRESSION: Pneumonia. SUBJECTIVE: Edward comes in today for cough and fever, temperature the last nine days, on and off cough for the last four or five days. Brother diagnosed with pneumonia and dad diagnosed with pneumonia last month. No runny nose. Chest hurting at times, decreased appetite, more tired. ADR/ALLERGIES: PENICILLIN. OBJECTIVE: VS: T: 99.6, by ear. Wt: 83 lb. HEENT: TMs and pharynx normal. LUNGS: Chest has crackles in left lobe posteriorly. ASSESSMENT: Pneumonitis. PLAN: Zithromax 200 per teaspoon, two teaspoons p.o. times one and one teaspoon q. day times four days. Recheck three weeks or p.r.n. TT: CT: BRIDGET:[id number] C: DOCUMENT: [id number] MARKER Conversion, [facility] - 03/29/2001 12:01 AM CST Phone Note signed by at 03/29/01 0043 Author: [facility] Conversion Service: (none) Author Type: (none) Filed: 08/05/10 0236 Note Time: 03/29/01 0001 Status: Signed Programming Development Project Manager: Don Conversion IMPRESSION: Ear pain-(child)-triage guideline SUBJECTIVE: PATIENT COMPLAINS OF... Ear * HOME PHONE: [phone] * pain, Mom calling req an appt * CONTACT PHONE: [phone] * first thing in morning for ear pain. At home has been using Tylenol, warm compress and has child sitting up. Scheduling system down at this time. I will sched an appt and call them in am with time of appt.; ALLERGIES/SENSITIVITIES... NKA 03/29/01 CURRENT MEDICATIONS... tylenol prn 03/29/01 PERTINENT PAST HISTORY... Healthy 03/29/01 ASSESSMENT: Ear pain-(child)-triage guideline DISPOSITION: SEMI-URGENT PLAN: RECOMMENDED THE FOLLOWING... Referenced guideline Ear pain-(child)-triage guideline. Schedule appointment with provider within 24 hours -Apply warm compresses to the ear -Elevate head -Give acetaminophen as directed for discomfort INFORMED PATIENT TO CALLBACK IF... Reasons to call back reviewed- caller verbalizes understanding of the need to call back for the following reasons: -Child is getting worse -Any other questions or concerns Call taken by REGGIE SANCHES RN [phone] 03/29/2001 12:37 AM ADDENDUM: <> 03/29/2001 01:24AM by REGGIE SANCHES RN [phone]: APPOINTMENT MADE. - Appointment made with JAVIER AZEVEDO Mar 29 2001 8:10AM. <> 03/29/2001 06:47AM by REGGIE SANCHES RN [phone]: Mom notified of appt time. Conversion, [facility] - 03/29/2001 12:01 AM CST Phone Note signed by at 03/29/01 1104 Author: [facility] Conversion Service: (none) Author Type: (none) Filed: 08/05/10 0236 Note Time: 03/29/012058 Status: Signed Programming Development Project Manager: Don Conversion IMPRESSION: Ear drops TO: JAVIER AZEVEDO FROM: ISAC LAIRD RN [phone] * PROVIDER MESSAGE: RETURN * 03/29/01 11:04AM * CALL REQUESTED * MESSAGE: Pt saw Dr. Azevedo this AM, dx * HOME PHONE:[phone] * with a bilat ear infection. Started * CONTACT PHONE:[phone] * on c efzil, mom is giving edward * Eri, mom. * tylenol, alternating with motrin. * PHARMACY: [phone] * Mom stat es this AM pt recieved * Pascual Snyders * drops in his ears to numb the pain.(??) She is wondering if she can get a prescription of the drops?? Told mom may just need to let the abx start to work and continue the motrin. Will ck with Dr. Azevedo. SUBJECTIVE: ALLERGIES/SENSITIVITIES... ?PCN 03/29/01 CURRENT MEDICATIONS... Cefzil 03/29/01 PERTINENT PAST HISTORY... Ear infection 03/29/01 WEIGHT: ASSESSMENT: Ear drops PLAN: DISPOSITION: NO DISPOSITION GIVEN CALL BY ISAC LAIRD RN 03/29/2001 11:01AM [phone] ADDENDUM: <> 03/29/2001 11:24AM by FLASH ABEL REMEDIAL PROJECT MANAGER: Rx for Auralgan otic missael to non draining painful ear qid x [address] Azevedo Electronically signed by [facility], [facility] at 02/06/2016 4:45 AM CDT Javier Azevedo MD - 03/29/2001 12:01 AM CST Progress Notes signed by at 06/08/02 0001 Author: Javier Azevedo MD Service: (none) Author Type: Physician Filed: 08/05/10 0236 Note Time: 03/29/01 0001 Status: Signed Programming Development Project Manager: Javier Azevedo MD (Physician) IMPRESSION: Bilateral acute otitis. SUBJECTIVE: FUENTES: 03/29/01. Chief complaint: Bilateral ear pain; first left last night and now right. New URI. Treated with amoxicillin for a bilateral otitis, March 10. Had hives a couple days after completion of treatment. ALLERGIES: ? AMOXICILLIN. OBJECTIVE: VS/Gen: Wt: 82 lb. EYES: Clear. HENT: Both TMs are scarlet in color with air fluid levels, decreased landmarks. Nose: Positive discharge. Oropharynx: Negative. NECK: Negative. LUNGS: Negative. CV: Negative. ASSESSMENT: Bilateral otitis. PLAN: Cefzil 250 b.i.d. x7 days. Did give Auralgan otic drops in the office and will follow up p.r.n. RGS:[id number] C: DOCUMENT: [id number] [facility], [facility] - 03/18/2001 12:01 AM CST Phone Note signed by at 03/18/01 3844 Author: Don Conversion Service: (none) Author Type: (none) Filed: 08/05/10 0219 Note Time: 03/18/01 0001 Status: Signed Programming Development Project Manager: Don Corona IMPRESSION: Rash: possible medication reaction-(child)-triage guideline - REFERRED PATIENT TO URGENT CARE AT [facility] * HOME PHONE: [phone] * SUBJECTIVE: PATIENT COMPLAINS OF... Acute onset of hive-like rash, associated with medication, current or within the last 21 days, / Per mom: just completed PCN for O.M. on 03/16/01. This a.m. has onset of red, raised, blotchy, irregular rash from neck down to ankles. One ankle may be slightly puffy. A few small red bumps look possibly purulent. A little itchy. When asked has c/o discomfort in chest with deep breath. DENIES: SOB, wheeze, drooling, tightness in throat, swelling of lips/tongue/face. Is alert/appropriate to mom/environment. ; ALLERGIES/SENSITIVITIES... NKA 03/18/01 CURRENT MEDICATIONS... None 03/18/01 PERTINENT PAST HISTORY... Healthy 03/18/01 ASSESSMENT: Rash: possible medication reaction-(child)-triage guideline DISPOSITION: EMERGENCY WEIGHT: 90 PLAN: RECOMMENDED THE FOLLOWING... Referenced guideline Rash: possible medication reaction-(child)-triage guideline. Schedule stat appointment with provider. -Give OTC Benadryl INFORMED PATIENT TO CALLBACK IF... Caregiver to call back if: -Symptoms persist or worsen -Any other questions or concerns Call taken by TABATHA NEWMAN 03/18/2001 08:42 AM ADDENDUM: Isra Cabral MD - 03/18/2001 12:01 AM CST Progress Notes signed by at 06/08/022058 Author: Isra Luna MD Service: (none) Author Type: (none) Filed: 08/05/10 0219 Note Time: 03/18/012058 Status: Signed Programming Development Project Manager: Isra Luna MD (Physician) IMPRESSION: Viral rash. Allergic rhinitis. SUBJECTIVE: HPI: [id number]-vaqs-toz male woke up this morning with a rash. It is minimally pruritic. He finished penicillin on 03/16/01 for I believe an otitis. He has never had a rash like this before. No new foods. No frequent tub baths. No hot tubs. He has been otherwise without fever. MEDS: Benadryl and normally Claritin chewables for allergies, but he is out of that. ADR/ALLERGIES: NONE. OBJECTIVE: T: 97.2. P: 60. R: 14. GEN: He is bright, alert and appears entirely well. SKIN: Has a diffuse, mild, follicular to papular rash with no vesicles. This is primarily on the arms and legs, some on the chest, a little on the back. His skin is somewhat dry generally. 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 HENT: Ears are normal. Nose mildly congested with some slight crusting in the right nostril. Pharynx clear postnasal drainage. NECK: Supple without nodes. LUNGS: Chest clear regular breath sounds. CV: Regular rate and rhythm without murmurs at 70. ABD: Soft and nontender. ASSESSMENT: Viral rash. Allergic rhinitis. PLAN: Reassured mom that this is not a penicillin allergy. Rx for Claritin chewables, #30, one q. a.m., and give Benadryl at h.s. daily to control allergies. Can give Benadryl during the day p.r.n. for any itching. Shoulder resolve in the next several days. Shahnaz oil applied sparingly to wet skin after each shower. Avoid excessive use of soap. If not, RTC p.r.n. CHRISTIK:[id number] C: DOCUMENT: [id number] MARKER Chleo, Don - 03/10/2001 12:01 AM CST Phone Note signed by at 03/10/01 0743 Author: Don Corona Service: (none) Author Type: (none) Filed: 08/05/10 0210 Note Time: 03/10/01 0001 Status: Signed Programming Development Project Manager: Don Corona IMPRESSION: Ear pain-(child)-triage guideline - TREATING PROVIDER: PEDS URGENT CARE - Appointment made with [facility] * HOME PHONE: [phone] * CARE Mar 10 2001 9:10AM - REFERRED PATIENT TO URGENT CARE AT [facility] SUBJECTIVE: PATIENT COMPLAINS OF... Ear pain, Mom calling and says child has Ear pain in the left ear. Did not know if has fever. EAting and drinking fluids. EAr Pain for the past 24hours. ; ALLERGIES/SENSITIVITIES... 03/10/01 CURRENT MEDICATIONS... Tylenol; 03/10/01 PERTINENT PAST HISTORY... Healthy; 03/10/01 ASSESSMENT: Ear pain-(child)-triage guideline DISPOSITION: SEMI-URGENT PLAN: RECOMMENDED THE FOLLOWING... Referenced guideline Ear pain-(child)-triage guideline. Schedule appointment with provider within 24 hours Offerred appt in or Peds UC and Mom prefers Peds UC. -Apply warm compresses to the ear -Elevate head -Hold or rock in an upright position -Discourage child from blowing their nose forcefully to prevent additional pressure on the ears. -Wipe away ear drainage as it appears -Avoid exposure to passive smoke -Give acetaminophen as directed for discomfort INFORMED PATIENT TO CALLBACK IF... Reasons to call back reviewed- caller verbalizes understanding of the need to call back for the following reasons: -Child is getting worse -Any other questions or concerns Call taken by NAVID HUSAIN RN [phone] 03/10/2001 07:38 AM ADDENDUM: Chloe [facility] - 03/10/2001 12:01 AM CST Phone Note signed by at 03/10/01 0146 Author: Don Conversion Service: (none) Author Type: (none) Filed: 08/05/10 0210 Note Time: 03/10/01 0001 Status: Signed Programming Development Project Manager: Don Corona IMPRESSION: Ear pain-(child)-triage guideline - REFERRED PATIENT TO URGENT CARE AT [facility] * HOME PHONE: [phone] * SUBJECTIVE: PATIENT COMPLAINS OF... Significant, persistent ear pain. . Mom calling, pt is awake and c/o ear pain. Has only had a few ear infections. Has chronic allergy sx's and is always sniffing. Questioning what to do? ALLERGIES/SENSITIVITIES... 03/10/01 CURRENT MEDICATIONS... Tylenol; 03/10/01 PERTINENT PAST HISTORY... Healthy; 03/10/01 ASSESSMENT: Ear pain-(child)-triage guideline DISPOSITION: SEMI-URGENT PLAN: RECOMMENDED THE FOLLOWING... Referenced guideline Ear pain-(child)-triage guideline. Schedule appointment with provider within 24 hours -Apply warm compresses to the ear -Elevate head -Hold or rock in an upright position -Discourage child from blowing their nose forcefully to prevent additional pressure on the ears. -Wipe away ear drainage as it appears -Avoid exposure to passive smoke -Give acetaminophen as directed for discomfort Patient information given perEar Pain nurse guidelines. INFORMED PATIENT TO CALLBACK IF... Reasons to call back reviewed- caller verbalizes understanding of the need to call back for the following reasons: -Child is getting worse -Any other questions or concerns Call taken by HOLLEY PÉREZ RN [phone] 03/10/2001 01:38 AM ADDENDUM: Edward Guajardo MD - 03/10/2001 12:01 AM CST Progress Notes signed by SETH Sloan at 03/12/01 1222 Author: SETH Sloan Service: (none) Author Type: Physician Filed: 08/05/10 0209 Note Time: 03/10/01 0001 Status: Signed Programming Development Project Manager: SETH Sloan (Physician) IMPRESSION: Left otitis media. SUBJECTIVE: Edward is an 8-1/2-year-old who was fine until last night when he started complaining of a left earache. He was given some Tylenol before he went to bed. He woke up in the middle of the night with pain in his left ear again and got another dose of Tylenol. He has had a runny nose for a while now and has been diagnosed with allergies. He is currently on Claritin tablets. He has been afebrile. No history of cough. Current medications include Claritin. THERE ARE NO KNOWN DRUG ALLERGIES. OBJECTIVE: T: 97.2. Wt: 81 pounds. He is an alert, pleasant 8-1/2-year-old in no acute distress. His pupils were equal, round, reactive to light. EOMs were full. Conjunctivae were not injected. Right TM was normal; left was red, bulging, distorted, and immobile. Throat was not injected. He had no significant lymphadenopathy. Lungs were clear. CARDIOVASCULAR EXAMINATION: Regular rate and rhythm. There were no murmurs. ASSESSMENT: Left otitis media. PLAN: Amoxicillin 875 mg b.i.d. x7 days. Return on a p.r.n. basis. DA:[id number] C: DOCUMENT: [id number] MARKER Conversion, [facility] - 02/02/2001 12:01 AM CDT Phone Note signed by at 02/02/01 193 Author: Don Conversion Service: (none) Author Type: (none) Filed: 08/05/10 0124 Note Time: 02/02/01 0001 Status: Signed Programming Development Project Manager: Imr Conversion IMPRESSION: Breathing problems: Shortness of breath-(child)-triage guideline SUBJECTIVE: PATIENT COMPLAINS OF... * HOME PHONE: [phone] * Moderate to severe shortness of breath ALLERGIES/SENSITIVITIES... PCN- 01/15/01 CURRENT MEDICATIONS... tylenol prn 01/15/01 PERTINENT PAST HISTORY... Healthy 01/15/01 ASSESSMENT: Breathing problems: Shortness of breath-(child)-triage guideline DISPOSITION: EMERGENCY PLAN: RECOMMENDED THE FOLLOWING... Referenced guideline Breathing problems: Shortness of breath-(child)-triage guideline. Schedule stat appointment with provider Mom calling and says child is having Sob with exertion. Noisy respirations upon inspiration and experation. When at rest breathing seems to be easier. Barking type cough. Did not know if has fever. Some wheezing earlier today. Child had Croup as a child .Presently up [place] in [place] and advised that child needs to be seen in that area. Assure patient safety -Have child sit in a comfortable position, loosen clothing -Avoid exposure to smoke, fumes, chemicals and irritants INFORMED PATIENT TO CALLBACK IF... Reasons to call back reviewed- caller verbalizes understanding of the need to call back for the following reasons: -Symptoms worsen before appointment -Any other questions or concerns MISC COMMENTS... Mother will be taking child to in [place]. Call taken by NAVID HUSAIN RN [phone] 02/02/2001 07:24 PM ADDENDUM: Rylan Weinberg MD - 01/18/2001 12:01 AM CDT Progress Notes signed by Rylan Weinberg MD at 01/24/01 7979 Author: Rylan Weinberg MD Service: (none) Author Type: Physician Filed: 08/05/10 0105 Note Time: 01/18/012058 Status: Signed Programming Development Project Manager: Rylan Weinberg MD (Physician) IMPRESSION: [age]-year checkup. Psoriasis and possible allergic rhinitis. SUBJECTIVE: Edward comes in today for [age]-year checkup. He has been doing well. Mom has questions about a rash on his left knee and left elbow. Otherwise no health concerns today except for chronically drippy nose. Diet has been a pretty good variety of fruits. Likes salads, corn, and carrots. No other vegetables. He likes meats and dairy products. Stools normally. Sleeping okay at night. Good bladder control. He is in third grade in the [employer] program. He does well in school. He socializes well with other kids. He plays soccer, basketball, and football. He seems to have good dexterity and balance. Good vocabulary. He is in speech for help with making his R sounds, which are difficult for him. He wears seatbelt in the car, a bike helmet when he bikes. NO ALLERGIES. OBJECTIVE: BP: 92/60. Ht: 56-1/2 inches. Wt: 80-1/2 pounds. TMs and pharynx normal. CHEST: Clear. HEART: Normal. ABDOMEN: Soft, nontender. GENITALIA: Normal prepubertal. Testicles descended. REFLEXES: Symmetrical. FUNDUSCOPIC: Normal. He does have what appears psoriasis of his left knee and left elbow with some silvery scaly areas, a little bit of redness under his nostrils and essentially . ASSESSMENT: Well 10-year-old. Question of allergic rhinitis and psoriasis. PLAN: Gave some DesOwen ointment as per a dermatology visit in March 1999 for psoriasis twice a day sparingly to knees and elbows. May use a little bit around the nose or ears if problems there, but only for up to a month. Gave him a prescription for Claritin 10 mg Reditabs one tab p.o. q.d. p.r.n. allergy symptoms, #30, refill x 3, to see if that helps his chronically stuffy nose. He has also been having some occasional hives that have not been determined to be from an allergy. Will see if the Claritin helps that as well. Otherwise return to clinic for 14-year check. Immunizations are up to date. [facility]:[id number] C: DOCUMENT: [id number] Conversion, [facility] - 01/15/2001 12:01 AM CDT Phone Note signed by at 01/15/01 1516 Author: [facility] Conversion Service: (none) Author Type: (none) Filed: 08/05/10 0101 Note Time: 01/15/01 0001 Status: Signed Programming Development Project Manager: Don Corona IMPRESSION: Need order for Varicella? TO: ELVI BEASLEY FROM: ALO SORTO RN [phone] * PROVIDER MESSAGE: ROUTINE * 01/15/01 03:16PM * *WITHIN 4 HOURS * MESSAGE: Mom calling. Edward was * HOME PHONE:[phone] * exposed to twins at daycare who * CONTACT PHONE:[phone] * just started to come down with * Mom * chicken pox. Edward is scheduled for a well check on but has booked an appointment for today at 4pm for the Varicella shot. Does Edward need an order since he was going to get it anyway on ? If so an order will need to be written. SUBJECTIVE: ALLERGIES/SENSITIVITIES... PCN- 01/15/01 CURRENT MEDICATIONS... tylenol prn 01/15/01 PERTINENT PAST HISTORY... Healthy 01/15/01 WEIGHT: ASSESSMENT: Need order for Varicella? PLAN: DISPOSITION: NO DISPOSITION GIVEN CALL BY ALO SORTO RN 01/15/2001 03:13PM [phone] ADDENDUM: <> 01/15/2001 03:35PM by FLASH ABEL LPN: ok to receive varicella vaccine Conversion, [facility] - 03/30/2000 12:01 AM CST Phone Note signed by at 03/30/00 1710 Author: Don Conversion Service: (none) Author Type: (none) Filed: 08/04/101950 Note Time: 03/30/00 0001 Status: Signed Programming Development Project Manager: Don Corona IMPRESSION: Frostbite (child) - nurse guidelines SUBJECTIVE: PATIENT COMPLAINS OF... * HOME PHONE: [phone] * Frostbite -First degree burn -Initially appears hard, white, cold, and numb -Painful, blotchy red, and swollen after rewarming -Denies urgent or semi-urgent symptoms Child came in from outside and didn't have boots tied so tops of feet were exposed to the cold. He has now been soaking them. The areas are red and painful. No blisters. ALLERGIES/SENSITIVITIES... PCN- 10/13/99 CURRENT MEDICATIONS... tylenol prn 10/13/99 PERTINENT PAST HISTORY... Healthy 10/13/99 ASSESSMENT: Frostbite (child) - nurse guidelines DISPOSITION: HOME CARE PLAN: RECOMMENDED THE FOLLOWING... Referenced guideline Frostbite (child) - nurse guidelines. Start thawing process immediately. -Immerse affected area in warm water/bath with a mild antibacterial soap -Encourage warm liquids -Elevate area when possible -Give acetaminophen now to reduce discomfort. (Areas will become red and painful as rewarming occurs). Patient information given per Frostbite nurse guidelines. Call taken by MARGY GIBSON, RN [phone] 03/30/2000 05:07 PM ADDENDUM: William Sr MD - 11/04/1999 12:01 AM CDT Progress Notes signed by William Barroso MD at 07/14/00 1217 Author: William Barroso Md, MD Service: (none) Author Type: Physician Filed: 08/04/10 2128 Note Time: 11/04/99 0001 Status: Signed Programming Development Project Manager: William Barroso Md, MD (Physician) IMPRESSION: Rash. SUBJECTIVE: Sang comes in because he has developed a rash at the base of the penis on the upper side. It has been present over about a month. It has gotten better and worse at times. It has not involved the rest of the penis. He has not had any problems with enuresis. No other rashes. No had a fever. Not had any pain with urination. Not on any medications. HE HAS HAD REACTION TO PENICILLIN IN THE PAST. OBJECTIVE: Wt: 73 pounds. Abdomen is soft, nontender. No guarding, no masses. SKIN: Patient has a dried, irritated area about 1.5 x 3 cm in size on the upper side and base of the penis, more on the abdomen than actually on the penis itself. The area on the right side has been a little bit weepy and is maybe starting to develop a little impetigo or infection in it. There is no pus present. ASSESSMENT: Rash. PLAN: Will treat with Keflex 250/5, 2 tsp. b.i.d. x 7 days. Can also use some bacitracin on the area over the next 4-5 days, then can start with some moisturizer such as Eucerin or Mechelle. CRISIS SPECIALIST:[id number] C: DOCUMENT: [id number] MARKER Conversion, [facility] - 10/13/1999 12:01 AM CDT Phone Note signed by at 10/13/99 105 Author: [facility] Conversion Service: (none) Author Type: (none) Filed: 08/04/10 1709 Note Time: 10/13/99 0001 Status: Signed Programming Development Project Manager: Imr Conversion IMPRESSION: red area on penis SUBJECTIVE: PATIENT COMPLAINS OF... Mom calling * HOME PHONE:[phone] * say that child has a redness on the top side of his penis further back from the head. No uti problems, no pain, he is out roller blading. Mom looked at it yesterday, didn't see any bumps just a redne ss. She says he did fall off his bike so doesn't know if it is related , but no sx of pain, ALLERGIES/SENSITIVITIES... PCN- 10/13/99 CURRENT MEDICATIONS... tylenol prn 10/13/99 PERTINENT PAST HISTORY... Healthy 10/13/99 ASSESSMENT: red area on penis DISPOSITION: HOME CARE PLAN: RECOMMENDED THE FOLLOWING... _ Mom will look today and if she sees anything different she will call b ack. If it is rashy or reddened, Mom will try some hydrocortisone cr.. and monitor for a few days. Verbalizes understanding and agrees with phone care recommendation [facility] COMMENTS... no sore CALL BY ROMULO ELLIS RN 10/13/1999 10:47AM [phone] ADDENDUM: Trang Vicente MD - 04/14/1999 12:01 AM CST Progress Notes signed by Trang Vicente MD at 09/08/99 4917 Author: Trang Vicente MD Service: (none) Author Type: Physician Filed: 08/04/10 1421 Note Time: 04/14/99 0001 Status: Signed Programming Development Project Manager: Trang Vicente MD (Physician) IMPRESSION: Psoriasis. Changing nevus, left abdomen and benign moles. SUBJECTIVE: Mpl-zfov-ruy little boy comes in with his mom for evaluation of a mole on his left abdomen that has been present for many years but recently developed a darker area centrally. Mom has noted it has grown as the child has grown. He has never had any atypical moles, no moles removed, no family history of atypical moles or melanoma. Mom also notes that he has what appears to be psoriasis on his left elbow primarily but a little bit around his ears as well. No one else in the family with diagnosed psoriasis but she notes her seems to have a lot of flakiness of his scalp. The only thing they have tried for the psoriasis is pavu-wzi-zjesmkn hydrocortisone cream. They try to use moisturizers on a fairly regular basis. the child is otherwise healthy. He is on no medications. HE HAS ALLERGY TO PENICILLIN. OBJECTIVE: In general, a healthy appearing young man in no distress. On evaluation of the skin, the face, neck, the anterior and posterior trunk and both upper extremities were examined. He does have some mild pinkness around the right nasal ala with a little fissuring at that site. Also the ears bilaterally show a little pinkness with scale and a little fissuring of the lobes. The left elbow has well marginated, pink, plaque psoriasis. On the left abdomen there is a sloped shoulder jara to reddish brown papule with a darker brown center measuring about 5 x 6 mm in size. He has several other benign appearing, brown macules on the trunk. ASSESSMENT: 1. Psoriasis. 2. Changing nevus, left abdomen and benign moles. PLAN: After verbal consent from mom was obtained, the risks of shave biopsy including infection, bleeding and scar were discussed, the lesion on the abdomen was anesthetized with 1% Xylocaine with epinephrine and shave biopsy performed. Aluminum chloride used for hemostasis, Polysporin ointment and band-aid applied. Wound care instructions given. I will call them with the results in approximately 2 weeks. For the psoriasis, recommended desonide ointment sparingly b.i.d. Could also be used near the ears and the nose for up to a month at a time. Also, moisturizer is recommended and Cetaphil samples given and Aquaphor samples for the irritated area by the nose given. He will followup as needed. MMB:[id number] C: DOCUMENT: [id number] Conversion, [facility] - 03/13/1999 12:01 AM CST Phone Note signed by at 03/13/99 9347 Author: Don Conversion Service: (none) Author Type: (none) Filed: 08/04/10 7336 Note Time: 03/13/99 0001 Status: Signed Programming Development Project Manager: Don Conversion IMPRESSION: Hives-(child)-nurse guidelines SUBJECTIVE: PATIENT COMPLAINS OF... * HOME PHONE: [phone] * Hive-like rash, mom calling states child came in from outside itching, mom lifted shirt and saw hive like rash on his arms and his side; -Denies urgent or semi-urgent symptoms ALLERGIES/SENSITIVITIES... PCN- rash 03/13/99 CURRENT MEDICATIONS... tylenol prn 03/13/99 PERTINENT PAST HISTORY... Healthy 03/13/99 ASSESSMENT: Hives-(child)-nurse guidelines DISPOSITION: HOME CARE PLAN: RECOMMENDED THE FOLLOWING... Referenced guideline Hives-(child)-nurse guidelines. -Give cool baths or apply cool tap water compresses -Give OTC Benadryl -Dress child lightly, cotton clothing is best -Avoid sunlight -Avoid activities that would cause child to become warm, sweaty, or excited, until several days after hives disappear Patient information given per Hives nurse guidelines. INFORMED PATIENT TO CALLBACK IF... Reasons to call back reviewed- caller verbalizes understanding of the need to call back for the following reasons: -Joint pain or fever develop -Symptoms persist or worsen -Significant itching continues after 24 hours and is not relieved by antihistamines -Non-itchy rash continues for 3-4 days -Any other questions or concerns PATIENT DECLINED CALLBACK Call taken by TRANG RITCHIE RN [phone] 03/13/1999 05:08 PM ADDENDUM: Robbin Sawyer MD - 09/30/1998 12:01 AM CDT Progress Notes signed by Robbin Sawyer MD at 12/04/98 1108 Author: Robbin Sawyer MD Service: (none) Author Type: Physician Filed: 08/04/10 1106 Note Time: 09/30/98 0001 Status: Signed Programming Development Project Manager: Robbin Sawyer MD (Physician) IMPRESSION: Urticaria on several occasions following exposure to [place] water in summer. SUBJECTIVE: Edward is a 8-year-old boy seen for evaluation of occasional hives. [place]. The next week he was able to swim in it without any difficulty. He swam in it last year and had some hives later in the summer. When he got the hives he took Benadryl with improvement. However, it made him somewhat sleepy. He does not have a problem when he swims in swimming pools. He does not have any other associated allergy symptoms of hay fever when he is not swimming. That is, he has no sneezing, runny nose, itchy eyes, stuffy nose, during any particular time of year. He gets croup about twice a year. Seems to be seasonal. He was hospitalized at 18 months for problems breathing. ALLERGIES: He has PENICILLIN allergy that caused a rash all over his body. No other medical problems. FAMILY HISTORY: His sister is penicillin and sulfa sensitive. OBJECTIVE: Ht: 49-3/4 inches Wt: 61 pounds Nasal membranes slightly congested. No polyps or septal deviation. Tympanic membranes and pharynx benign. Chest clear. Allergy skin testing yielded negative results to Alternaria, birch, oak, grass and ragweed by the derm pick method. Positive histamine, negative saline controls. Negative ice cube test. ASSESSMENT: Urticaria on several occasions following exposure to [place] water in summer. PLAN: COMMENT: Unknown cause for his problem. It does not fit the syndrome of cold urticaria since there have been other times when he has been exposed to cold water without problems. He had a negative ice cube test today. He does not have hay fever symptoms typically and so the idea that he may have pollen exposure in the water is not readily supported. RECOMMENDATIONS: Benadryl or Claritin syrup one teaspoon q.d. can be tried on a p.r.n. basis for this problem. Contact us if it worsens. DFG:[id number] C: DOCUMENT: [id number] Conversion, [facility] - 09/09/1998 12:01 AM CDT Phone Note signed by at 09/09/98 1826 Author: Don Conversion Service: (none) Author Type: (none) Filed: 08/04/10 1046 Note Time: 09/09/98 0001 Status: Signed Programming Development Project Manager: Imr Conversion IMPRESSION: Hives-(child)-nurse guidelines TO: ELVI BEASLEY FROM: STAN RAY RN [phone] * PROVIDER MESSAGE: ROUTINE * 09/09/1998 06:21PM * *WITHIN 4 HOURS * MESSAGE: Mother wants to know if * HOME PHONE: [phone] * any testing can be to determine * CONTACT PHONE: [phone] * cause of hives. * eri * SUBJECTIVE: CHIEF CONCERN... Hive-like rash,patient not on medication: gets hive like rash when up at [place] and seems to happen when in the water, though may be duck lice but this time got quarter sized wheels that responded well ot benedryl and faded with in 2 days/ does not happen at home, other kids went in water and none of them reacted to the water.; ALLERGIES/SENSITIVITIES... PCN- rash 09/09/98 CURRENT MEDICATIONS... tylenol prn 09/09/98 PERTINENT PAST HISTORY... Healthy 09/09/98 WEIGHT: 55 ASSESSMENT: hives-(child) PLAN: DISPOSITION: HOME CARE RECOMMENDED THE FOLLOWING... Referenced guideline Hives-(child)-nurse guidelines. -Give cool baths or apply cool tap water compresses -Give OTC Benadryl -Avoid activities that would cause child to become warm, sweaty, or excited, until several days after hives disappear INFORMED PATIENT TO CALLBACK IF... -Any other questions or concerns Call taken by STAN RAY RN [phone] 09/09/1998 06:15 PM ADDENDUM: <> 09/10/1998 08:48AM by FLASH ABEL LPN: per dr beasley should make an appointment with venereal disease control head. ok with dr beasley for erma to make an appointment with [facility]. MARKER Conversion, [facility] - 06/05/1998 12:01 AM CST Phone Note signed by at 06/05/98 1500 Author: Don Conversion Service: (none) Author Type: (none) Filed: 08/04/10 0902 Note Time: 06/05/98 0001 Status: Signed Programming Development Project Manager: Don Corona IMPRESSION: right sided chest pain SUBJECTIVE: PATIENT COMPLAINS OF... Mom * HOME PHONE: [phone] * calling states that pt woke up crying c/o sharp pain to the right of nipple area. States pt has had VURI symptoms, and was seen in Peds [facility] Sat and Sun with croup symptoms. Coughing at times yet . denies temp. Denies any respiratory concerns. Pt does state it hurts worse with deep breathe, but doesn't seem to be affecting his breathing. he seems better now. No analgesia given. ALLERGIES/SENSITIVITIES... PCN- rash 06/05/98 CURRENT MEDICATIONS... tylenol prn 06/05/98 PERTINENT PAST HISTORY... Healthy 06/05/98 ASSESSMENT: right sided chest pain DISPOSITION: HOME CARE WEIGHT: 60 DATE WEIGHED: 06/05/1998 PLAN: RECOMMENDED THE FOLLOWING... reviewed chest pain pg . 568-9 in Your Child's Health advised Pt be given Advil liq 2 1/2 tsp per dosing chart and if no relief in pain or pain prevents pt from taking deep breaths, he should be evaluated. Otherwise continue to give advil q6 h, x 48h and call back prn . INFORMED PATIENT TO CALLBACK IF... any further questions/concerns MISC COMMENTS... Mom states will callback prn PATIENT DECLINED CALLBACK Call taken by LETTY BERNAL RN [phone] 06/05/1998 02:48 PM ADDENDUM: MARKER Conversion, [facility] - 06/03/1998 12:01 AM CST Phone Note signed by at 06/03/98 6692 Author: Don Conversion Service: (none) Author Type: (none) Filed: 08/04/10 0859 Note Time: 06/03/98 0001 Status: Signed Programming Development Project Manager: Don Corona IMPRESSION: Cough-(child)-nurse guidelines SUBJECTIVE: PATIENT COMPLAINS OF... Mild * HOME PHONE: [phone] * cough, has ahd cough 5 days now, seen x2 and negative strep, other time fro croup but cough not barky or deep at this time, has had a fever up to 103 and today at 100. Cough lessening, is able to eat and drink.; ALLERGIES/SENSITIVITIES... PCN- rash 06/03/98 CURRENT MEDICATIONS... tylenol prn 06/03/98 PERTINENT PAST HISTORY... Healthy 06/03/98 ASSESSMENT: Cough-(child)-nurse guidelines DISPOSITION: HOME CARE PLAN: RECOMMENDED THE FOLLOWING... Referenced guideline Cough-(child)-nurse guidelines. -Encourage rest -Offer warm, clear liquids to relax the airway -Use humidity for respiratory comfort -Give OTC cough suppressants with dextromethorphan only for persistent cough or when cough interferes with sleep INFORMED PATIENT TO CALLBACK IF... -Child develops respiratory difficulty. -Any other questions or concerns Call taken by STAN RAY RN [phone] 06/03/1998 02:13 PM ADDENDUM: Conversion, [facility] - 05/31/1998 12:01 AM CST Phone Note signed by at 05/31/98 6984 Author: Don Conversion Service: (none) Author Type: (none) Filed: 08/04/10 0855 Note Time: 05/31/98 0001 Status: Signed Programming Development Project Manager: Don Corona IMPRESSION: Sore Throat-(Child)-Nurse Guidelines - REFERRED PATIENT TO URGENT CARE AT [facility] * HOME PHONE: [phone] * SUBJECTIVE: PATIENT COMPLAINS OF... Sore throat, Dad calling: in [facility] yesterday to r/o strep. Last night develop 'croupy' cough. child c/o painful breathing, when asked where it hurts he points to his throat. Able to take liquids w/o problems. Deny drooling. Deny positioning. Deny cyanosis. Alert. Dad state he had similar sx few years ago w/o dx. Voice hoarse. Temp 102.8. Treid steam and taking out in cold w/o relief. Could hear child talk in background, speak complete sentence but mary ellen; ALLERGIES/SENSITIVITIES... PCN- rash 05/31/98 CURRENT MEDICATIONS... tylenol prn 05/31/98 PERTINENT PAST HISTORY... Healthy 05/31/98 ASSESSMENT: Sore Throat-(Child)-Nurse Guidelines DISPOSITION: EMERGENCY PLAN: RECOMMENDED THE FOLLOWING... Referenced guideline Sore Throat-(Child)-Nurse Guidelines. Schedule stat appointment with provider Will go to [facility] now. If sx progress will go directly to ER or call 911. INFORMED PATIENT TO CALLBACK IF... Reasons to call back reviewed- caller verbalizes understanding of the need to call back for the following reasons: -Breathing or swallowing becomes difficult -Any other questions or concerns Call taken by REGGIE SANCHES, RN [phone] 05/31/1998 07:49 AM ADDENDUM: Jacob Hardy - 05/31/1998 12:01 AM CST Progress Notes signed by Jacob Burns MD at 02/16/02 1626 Author: Jacob Burns MD Service: (none) Author Type: Physician Filed: 08/04/10 0855 Note Time: 05/31/982058 Status: Signed Programming Development Project Manager: Jacob Burns MD (Physician) IMPRESSION: No dictation required. Upper respiratory infection, croup. Symptomatic treatments. SUBJECTIVE: N/A OBJECTIVE: N/A ASSESSMENT: N/A PLAN: N/A [facility] Conversion, [facility] - 05/30/1998 12:01 AM CST Phone Note signed by at 05/30/98 8260 Author: Imr Conversion Service: (none) Author Type: (none) Filed: 08/04/10 0854 Note Time: 05/30/982058 Status: Signed Programming Development Project Manager: [facility] Conversion IMPRESSION: Sore Throat-(Child)-Nurse Guidelines SUBJECTIVE: PATIENT COMPLAINS OF... Sore * HOME PHONE: [phone] * throat,> 5 years of age, without cough or cold, Mother states pt has a sore throat when he cough which is only occasionally. He denies other cold sx. Pt does admit to abd distress. Mother did not want to bring him in for SS quite yet. Home care given and rec'd to for SS today or tomorrow. Pt's sister had positive strep 05/29; -Fever Mother states pt has temp of 100. ; -Denies any urgent or semi-urgent symptoms ALLERGIES/SENSITIVITIES... PCN- rash 05/30/98 CURRENT MEDICATIONS... Denies 05/30/98 PERTINENT PAST HISTORY... Healthy 05/30/98 ASSESSMENT: Sore Throat-(Child)-Nurse Guidelines DISPOSITION: HOME CARE PLAN: RECOMMENDED THE FOLLOWING... Referenced guideline Sore Throat-(Child)-Nurse Guidelines. -Give acetaminophen or ibuprofen as directed -Have child gargle with salt water or ice water -Have child use hard candies, ice or cough drops to soothe throat if > age 8 -Encourage liquids: 8-10 regular glasses each day. Juice and water are best. Cool beverages or warm liquids are most soothing. -Encourage soft foods or flavored frozen desserts -Encourage extra rest so the body can use it's natural resources to recuperate -Improve room humidity with a cool mist vaporizer Patient information given per Sore Throat nurse guidelines. INFORMED PATIENT TO CALLBACK IF... Reasons to call back reviewed- caller verbalizes understanding of the need to call back for the following reasons: -Breathing or swallowing becomes difficult -If no significant improvement in symptoms after 48 hours of medication -Sore throat lasts > 1 week without major improvement -Any other questions or concerns Call taken by SAIMA RITCHIE RN [phone] 05/30/1998 02:31 PM ADDENDUM: Conversion, [facility] - 05/30/1998 12:01 AM CST Progress Notes signed by at 11/21/002039 Author: Don Conversion Service: (none) Author Type: (none) Filed: 08/04/10 0854 Note Time: 05/30/982058 Status: Signed Programming Development Project Manager: Don Corona IMPRESSION: Upper respiratory infection. Chapped nose. Abrasion of the left axilla. SUBJECTIVE: Edward Eng is an almost 8-year-old whose parents are concerned about a strep throat. He is complaining of a sore throat for about a day. He has a nonproductive cough and has a sister who is on treatment for strep. He has a chapped end of the nose because of rubbing it. They do not think he has had rhinorrhea, rather a more tenacious mucus that he is sniffing. He has no history of frequent strep. No history of asthma or hay fever. No history of recurrent ear infections. He does have a history for croup, but not recently. He is also complaining of discomfort in his left axilla of unknown duration. ADVERSE DRUG REACTIONS: No history of allergies. MEDICATIONS: Given Tylenol today. This may explain the normal temperature, as mom thought it was about 100. OBJECTIVE: T: 97.6. P: 62. R: 20. Wt: 58 lb. This is a well-nourished, healthy-appearing child in no distress. No conjunctivitis. Tympanic membranes are clear. He does have a chapped end of the nose, rather thick mucus in the nares, not running. Throat and tonsils are unimpressive. Small cervical nodes. Chest is clear. I feel nothing in the left axilla, but note there is a small, superficial bruise along the lateral chest wall. No tenderness on the muscle. No pain and pressure on the ribs. Abdomen soft. No rebound or guarding. Rapid strep is negative. ASSESSMENT: 1. Upper respiratory infection. 2. Chapped nose. 3. Abrasion of the left axilla. PLAN: Strep culture is pending. They will be informed if positive. May use analgesics and antipyretics for the fever. I have suggested they use nasal saline drops for the nose, using Vaseline to keep it moist and perhaps hydrocortisone 1% to the end of the nose twice daily for a week and then continue with Vaseline. sti SCHEDULED RESOURCE: DAIANA VALADEZ MD Conversion, [facility] - 03/26/1998 12:01 AM CST Phone Note signed by at 03/26/98 4477 Author: [facility] Conversion Service: (none) Author Type: (none) Filed: 08/04/10 0746 Note Time: 03/26/98 0001 Status: Signed Programming Development Project Manager: Don Conversion IMPRESSION: Msg to PCP. TO: ELVI BEASLEY FROM: KENZIE CHAVES RN [phone] * PROVIDER MESSAGE: RETURN * 03/26/1998 10:27PM * CALL REQUESTED * MESSAGE: Call mother. See note. * HOME PHONE: [phone] * SUBJECTIVE: * CONTACT PHONE: [phone] * CHIEF CONCERN... Mother * mother * calling, pt has upset stomach and his sister had positive strep culture. Pt has been strep carrier in the past, was treated. ALLERGIES/SENSITIVITIES... PCN- rash 01/05/98 CURRENT MEDICATIONS... none 01/05/98 PERTINENT PAST HISTORY... none 01/05/98 WEIGHT: Not Available ASSESSMENT: Msg to PCP. PLAN: COMMENTS...Msg to PCP. Mother is considering taking child to in am. DISPOSITION: NO DISPOSITION GIVEN RECOMMENDED THE FOLLOWING... INFORMED PATIENT TO CALLBACK IF... Questions, concerns. Call taken by KENZIE CHAVES RN [phone] 03/26/1998 10:24 PM ADDENDUM: <> 03/27/1998 08:47AM by FLASH ABEL LPN: MESSAGE LEFT FOR MOM, OK TO COME IN FOR STREP SCREEN. ACCORDING TO COMPUTER, PATIENT HAD GONE TO URGENT CARE. Elvi Schneider MD - 01/09/1998 12:01 AM CDT Progress Notes signed by Elvi Beasley MD at 01/20/98 1501 Author: Elvi Beasley MD Service: (none) Author Type: Physician Filed: 08/04/10 0631 Note Time: 01/09/98 0001 Status: Signed Programming Development Project Manager: Elvi Beasley MD (Physician) IMPRESSION: Chest pains associated with exercise. SUBJECTIVE: Edward Eng is a 7-year-old who has had some episodes where he has complained of chest pain; seems more with activity where he will say it hurts to breath. It has happened once when he was inner tubing, and once when he was swimming. He occasionally has a little bit with playing soccer. He feels like it is a little harder to breath, but then after the episode is over, he has no difficulty breathing and just is a little tired. He has never passed out or fainted. They have not really noticed any color change in his face or sweatiness. There is no family history for any sudden deaths with exercise or heart problems. Adverse Drug Reactions: None. OBJECTIVE: WT: 56 pounds. In general, he is an alert 7-year-old in no acute distress. TMs are clear. Oropharynx was clear. Neck was supple without any adenopathy. Lungs were clear to auscultation. Heart regular rate and rhythm without any murmur. Femoral pulses are normal. Abdomen is soft, nontender without hepatosplenomegaly or masses. I did do a chest x- ray that appeared normal. Also, did a 12-lead EKG that we will read by Cardiology. ASSESSMENT: Chest pains associated with exercise. PLAN: Will have him evaluated by Cardiology to make sure they do not think there is any cardiac etiology. [id number] Conversion, [facility] - 01/05/1998 12:01 AM CDT Phone Note signed by at 01/05/98 1711 Author: [facility] Conversion Service: (none) Author Type: (none) Filed: 08/04/10 0627 Note Time: 01/05/98 0001 Status: Signed Programming Development Project Manager: Don Corona IMPRESSION: chest concerns - TREATING PROVIDER: ELVI BEASLEY - Appointment made with ELVI * HOME PHONE: [phone] * EMILIE Jan 09 1998 3:50PM * CONTACT PHONE: [phone] * SUBJECTIVE: * Mrs Eng (mom) * PATIENT COMPLAINS OF... Mom calling, patient in last few months has had several episodes where after being very active he will grab his chest and complain of pain,then he will rest and get up and start playing. Was seen for this last month when he had cold,has had one episode since. Is eating,sleeping and playful. ALLERGIES/SENSITIVITIES... PCN- rash 01/05/98 CURRENT MEDICATIONS... none 01/05/98 PERTINENT PAST HISTORY... none 01/05/98 ASSESSMENT: chest concerns DISPOSITION: NON-URGENT WEIGHT: 55 PLAN: RECOMMENDED THE FOLLOWING... appt made per moms request INFORMED PATIENT TO CALLBACK IF... any concerns Call taken by NALLELY PATTERSON RN [phone] 01/05/1998 10:57 AM ADDENDUM: Conversion, [facility] - 11/26/1997 12:01 AM CDT Phone Note signed by at 11/26/97 5178 Author: Don Conversion Service: (none) Author Type: (none) Filed: 08/04/10 0550 Note Time: 11/26/97 0001 Status: Signed Programming Development Project Manager: Don Corona IMPRESSION: Fever (4-17 years) nurse guideline SUBJECTIVE: PATIENT COMPLAINS OF... Fever, * HOME PHONE: [phone] * Pt has had a sorethroat and * CONTACT PHONE: [phone] * bodyaches since Sun. off and * Wen * on., He has a temp of 102.1po and Mom has been gfiving tylenol and ibuprofen prn. He wasseen yesterday by Dr. Beasley who thought it was probably viral as the mom had recently gotten over a flu similar to it. His white count was fine and he does double over sometimes with pain but Mom says he tends to be dramatic. He is alert and drinking and eating. He ahs not had a bm for several days so ; -Disrupted or restless sleep -VURI symptoms < 3-5 days ALLERGIES/SENSITIVITIES... PCN- rash 11/23/97 CURRENT MEDICATIONS... none 11/23/97 PERTINENT PAST HISTORY... none 11/23/97 ASSESSMENT: Fever (4-17 years) nurse guideline DISPOSITION: HOME CARE PLAN: RECOMMENDED THE FOLLOWING... Referenced guideline Fever (4-17 years) nurse guideline. -Dress lightly -Encourage increased intake of clear liquids -Give acetaminophen as directed -Spongebaths with lukewarm water may offer some comfort -Observe appearance and behavior and call for advice as needed Patient information given per Fever nurse guideline. INFORMED PATIENT TO CALLBACK IF... Reasons to call back reviewed- caller verbalizes understanding of the need to call back for the following reasons: -Serious symptoms develop -Any other questions or concerns Call taken by MARIELLE KNOX [phone] 11/26/1997 05:48 PM ADDENDUM: <> 11/27/1997 07:44PM by SHAKILA MARLEY RN [phone]: LEFT MESSAGE. <11/27/1997 08:31PM by GIOVANI ENG RN [phone]: Mom calling back to report pt.is afebrile today,& doing much better. Elvi Schneider MD - 11/25/1997 12:01 AM CDT Progress Notes signed by Elvi Beasley MD at 12/12/97 0823 Author: Elvi Beasley MD Service: (none) Author Type: Physician Filed: 08/04/10 0549 Note Time: 11/25/972058 Status: Signed Programming Development Project Manager: Elvi Beasley MD (Physician) IMPRESSION: Probable viral syndrome. SUBJECTIVE: Edward is a hhbg-prcy-bod who comes in having started about two days ago where he said when he got out of the pool complained of his chest hurting, although today he says that it was more his stomach. There was another time where he had an episode when he was running and said it hurt to breathe and that his chest hurt, although, again, it's hard to say if it was his chest or his stomach. Since that time, he has complained a little bit of stomachache just to the left of the umbilicus. He had a little backache last night, some leg pain, and his hand hurting. He has had maybe a low grade temp. No cold symptoms. No sore throat and no dysuria. He has had no vomiting, diarrhea, or constipation. He has been drinking okay. Mom had some sort of a viral illness last week. He did have a rapid strep done and a regular 24-hour strep culture done that were both negative. Those were taken yesterday. ALLERGIES: None. OBJECTIVE: Wt: 50 lb. T: 98.5. BP: 104/70. In general, he is an alert etjf-kitl-iec in no acute distress. Conjunctivae were clear. TMs were clear. Oropharynx clear. Neck supple without any adenopathy. Lungs clear to auscultation. Abdomen was soft, nontender without any hepatosplenomegaly or masses. He had no CVA tenderness. He is able to jump up and down without any difficulty. I did do a total white count today that was 5.8, diff was pending. ASSESSMENT: Probable viral syndrome. PLAN: I'd continue to watch him, treat him symptomatically, and let us know if his symptoms are not improving over the next couple of days. Otherwise, they should follow up if other concerns arise. beh Conversion, Imr - 11/23/1997 12:01 AM CDT Phone Note signed by at 11/23/97 2085 Author: Don Conversion Service: (none) Author Type: (none) Filed: 08/04/10 0547 Note Time: 11/23/97 0001 Status: Signed Programming Development Project Manager: Don Conversion IMPRESSION: Sore Throat-(Child)-Nurse Guidelines SUBJECTIVE: PATIENT COMPLAINS OF... Sore * HOME PHONE: [phone] * throat,> 5 years of age, * CONTACT PHONE: [phone] * without cough or cold, Family * Call Bhanu or Becky Christina * friend calling for pt who is * [facility] #[phone] * staying over night. Pt c/o tummy hurts, hurts when swallows, Temp 100.5(o). No rash, cold or cough sx. Sister and mother both recently diagnosed with strep. To give ibuprofen and liquids tonight. Would like nurse callback in the morning to reassess sx and discuss possibility of bringing in for strep screen. ; -Red throat -Fever PATIENT DENIES... -Enlarged tender neck glands -Scarlatinaform rash denies toxic symptoms -Denies any urgent or semi-urgent symptoms ALLERGIES/SENSITIVITIES... PCN- rash 11/23/97 CURRENT MEDICATIONS... none 11/23/97 PERTINENT PAST HISTORY... none 11/23/97 ASSESSMENT: Sore Throat-(Child)-Nurse Guidelines DISPOSITION: SEMI-URGENT PLAN: RECOMMENDED THE FOLLOWING... Referenced guideline Sore Throat-(Child)-Nurse Guidelines. Schedule appointment on nurses schedule for a strep screen if patient is established. -Give acetaminophen or ibuprofen as directed -Have child gargle with salt water or ice water -Have child use hard candies, ice or cough drops to soothe throat if > age 8 -Encourage liquids: 8-10 regular glasses each day. Juice and water are best. Cool beverages or warm liquids are most soothing. -Encourage soft foods or flavored frozen desserts -Encourage extra rest so the body can use it's natural resources to recuperate -Use humidifier to increase humidity in home Patient information given per Sore Throat nurse guidelines. Besides the classic strep symptoms, there are other symptoms that may accompany strep; headache, abdominal pain, scarlatiniform rash, INFORMED PATIENT TO CALLBACK IF... Reasons to call back reviewed- caller verbalizes understanding of the need to call back for the following reasons: -Breathing or swallowing becomes difficult -If no significant improvement in symptoms after 48 hours of medication -Sore throat lasts > 1 week without major improvement -Any other questions or concerns Call taken by ROCKY CALVO RN [phone] 11/23/1997 09:12 PM ADDENDUM: <> 11/24/1997 10:25AM by FAYN PARIKH RN [phone]: LEFT MESSAGE. <> 11/24/1997 10:00PM by JUANY BARRERA RN [phone]: - Appointment made with ELVI BEASLEY Nov 25 1997 9:10AM. Elvi Schneider MD - 07/23/1997 12:01 AM CDT Progress Notes signed by Elvi Beasley MD at 08/14/97 0916 Author: Elvi Beasley MD Service: (none) Author Type: Physician Filed: 08/04/10 0357 Note Time: 07/23/97 0001 Status: Signed Programming Development Project Manager: Elvi Beasley MD (Physician) IMPRESSION: Healthy fwyd-vvdl-kth. SUBJECTIVE: Edward is a smkj-uqdy-utt who comes in today for a checkup. He is on medication for strep. Otherwise, he has been doing well. He eats a variety of foods except he is a little pickier with vegetables. He has no problems with constipation or diarrhea. He is dry at night for the most part. He sleeps well. Developmentally, he just got finished with doing speech therapy and they feel that he is doing well. He knows his ABCs, can count to 100, knows shapes, colors, can draw a picture of a person, can throw and kick a ball, is riding a bike without training wheels, and does have a helmet. I talked about protective gear for rollerblading. They have no concerns about hearing or vision. He has not had chicken pox. He has done well with previous shots. ALLERGIES: PENICILLIN. OBJECTIVE: Ht: 46 1/2 in (95th percentile). Wt: 54 lb (95th percentile). BP: 110/68. In general, he is an alert xsgi-gwmc-sly in no acute distress. Funduscopic exam is normal. TMs clear. Oropharynx clear. Neck was supple without any adenopathy. Lungs clear to auscultation. Heart regular rate and rhythm without any murmur. Femoral pulses normal. Abdomen was soft and nontender without any hepatosplenomegaly or masses. exam revealed normal male external genitalia. Testes were down bilaterally. Gait was normal. Back showed no scoliosis. Vision was 20/20 in both eyes. He passed his Langstereo. ASSESSMENT: Healthy eejd-uoxu-ngv. PLAN: Today will go ahead with the Acellular DTP, MMR, and oral Polio. Mom is not currently interested in the varicella vaccine. Otherwise next checkup should be at 8 1/2. beh Conversion, [facility] - 04/09/1997 12:01 AM CST Phone Note signed by at 04/09/97 2274 Author: [facility] Conversion Service: (none) Author Type: (none) Filed: 08/04/10 8956 Note Time: 04/09/97 0001 Status: Signed Programming Development Project Manager: Don Corona IMPRESSION: Bites animal-(child)-nurse guidelines SUBJECTIVE: PATIENT COMPLAINS OF... * HOME PHONE: [phone] * Mom(Eri) calling regarding child who has just been bitten by his brother. Bite located on chest. Can see teeth restrepo and small breaks in skin. Both children up to date on immunizations. ALLERGIES/SENSITIVITIES... PCN- rash 04/09/97 CURRENT MEDICATIONS... none 04/09/97 PERTINENT PAST HISTORY... none 04/09/97 ASSESSMENT: Bites animal-(child)-nurse guidelines DISPOSITION: HOME CARE WEIGHT: 60 PLAN: RECOMMENDED THE FOLLOWING... Referenced Your Child Health pages 17-18. Home care and call back information given per recommendations. INFORMED PATIENT TO CALLBACK IF... Signs of infection(discussed), increase pain after 2nd day or any questions or concerns. PATIENT DECLINED CALLBACK Call taken by MARIBELL WONG 04/09/1997 11:22 AM ADDENDUM: Jessi Murphy APRN, CNP - 01/16/1997 12:01 AM CDT Progress Notes signed by Jessi Murphy APRN, CNP at 01/21/97 1623 Author: ELLE Ragland Service: (none) Author Type: Nurse Practitioner Filed: 08/04/10 0110 Note Time: 01/16/97 0001 Status: Signed Programming Development Project Manager: ELLE Ragland (Nurse Practitioner) IMPRESSION: Pharyngitis. SUBJECTIVE: Edward started complaining of a sore throat last evening and today Mom was called to pick him up from [facility] because of complaint of stomachache and sore throat. He has not had a headache and has been afebrile. There has been strep throat at [facility] in the past week. He has no URI symptoms and no rash. ADVERSE DRUG REACTIONS: PENICILLIN. OBJECTIVE: Wt: 49-1/2. Edward is quiet but looks well. His eyes are clear. Both ears shiny. Pharynx is entirely clear. Neck supple without adenopathy. Lungs clear. Skin clear. ASSESSMENT: Pharyngitis. PLAN: Throat culture; treat per protocol if positive. Symptomatic care reviewed. Follow up p.rJamshidnJamshid bls Elvi Beasley MD - 05/24/1996 12:01 AM CST Progress Notes signed by Elvi Beasley MD at 05/30/96 0836 Author: Elvi Beasley MD Service: (none) Author Type: Physician Filed: 08/03/10 2218 Note Time: 05/24/96 0001 Status: Signed Programming Development Project Manager: Elvi Beasley MD (Physician) IMPRESSION: Persistent cough and left otitis media. SUBJECTIVE: Edward is a fqouw-glvi-nqe who comes in having had a persistent cough for the last couple of weeks. Initially started out as real croupy and has gotten more congested and yesterday had 101 temp. It has been more low grade today. He has complained of some sore throat starting over the last day or so. He has had minimal rhinorrhea. Appetite has been down. ALLERGIES: PENICILLIN. OBJECTIVE: T: 98.7 tympanically. Wt: 46 lb. In general, he is an alert jjwds-azsy-frb in no acute distress. Left tympanic membrane was dull with some injection. Right tympanic membrane was clear. Oropharynx minimally injected. Neck supple with some precervical lymphadenopathy. Lungs clear to auscultation. ASSESSMENT: Persistent cough and left otitis media. PLAN: Discussed with mom that I think his cough is probably still viral in etiology but will put him on Cefzil 250 mg per 5 mL, take 1 tsp bid for 10 days to cover his ear infection and that would give him some coverage as far as his lungs and also cover the possibility of strep. beh MARKER Elvi Beasley MD - 01/23/1996 12:01 AM CDT Progress Notes signed by Elvi Beasley MD at 01/26/96 0954 Author: Elvi Beasley MD Service: (none) Author Type: Physician Filed: 08/03/102058 Note Time: 01/23/962058 Status: Signed Programming Development Project Manager: Elvi Beasley MD (Physician) IMPRESSION: Healthy 3 1/2-year-old except for some concerns over speech. SUBJECTIVE: Edward is a 3 1/2-year-old who come in today for a checkup. Really Mom has no specific concerns or questions. He eats a variety of foods. He has no problems currently with any constipation or diarrhea. He did have a history of some Giardia in the past. He is toilet trained during the day but not dry at night yet. He sleeps well at night. Developmentally, Mom is concerned because sometimes when he is speaking he doesn't always say the first few letters of a word, and sometimes people have a lot of trouble understanding him. He does know his ABCs and can count to 20. He knows his colors and is working on shapes. He is coloring with a little more pattern, and he does do some puzzles. He can build with blocks and throw and kick a ball. He can peddle, and he does have a helmet. They have no concerns about his hearing or vision. He has not had chicken pox. ADVERSE DRUG REACTIONS: PENICILLIN. OBJECTIVE: HT: 43 in (above 95th percentile). WT: 43 1/2 lb (above 95th percentile). BP: 92/46. Physical exam was all within normal limits. Vision was 20/30 both eyes. He passed his Langstereo. ASSESSMENT: Healthy 3 1/2-year-old except for some concerns over speech. PLAN: I did give them information on the varicella vaccine. We discussed that, and if they are interested, they should let us know. As far as his speech, actually he didn't talk a lot here in the office. When he did speak his speech was fairly clear. I did recommend that she might want to have him seen by our Speech Therapy or through the school system just for an initial evaluation. nbs Elvi Beasley MD - 11/07/1995 12:01 AM CDT Progress Notes signed by Elvi Beasley MD at 11/10/95 1502 Author: Elvi Beasley MD Service: (none) Author Type: Physician Filed: 08/03/102014 Note Time: 11/07/95 0001 Status: Signed Programming Development Project Manager: Elvi Beasley MD (Physician) IMPRESSION: Recurring abdominal pain. SUBJECTIVE: Edward Eng is a 5-year-old who comes in having had some ongoing abdominal pain. He was diagnosed with Giardia on 11/10 and treated with a course of Flagyl. He seemed to be doing better for awhile, but then started having some recurrent abdominal pain. He had actually been on Ceclor when he had been diagnosed with croup and they stopped that last week. The abdominal pain he has been having does sometimes wake him up at night. At times, it seems to be right after he eats. His appetite has been down markedly. He is drinking less. He seems to be staying well hydrated. He has been sleeping a little bit more. Sometimes having a bowel movement will help his pain. His stools have been more of a looser consistency. He has had no blood in the stools. He has had no dysuria. He has never had any constipation in the past. He still has some congestion, but his cough seems to have improved. He has had no temperature. They have had him off of dairy products and that does not seem to make a difference. The mother had a little nausea earlier, but never developed other symptoms. The dad also had not been feeling well but had more of a headache that has resolved. When he points to where the pain is, it is more in the epigastric area. Adverse Drug Reactions: PENICILLIN. OBJECTIVE: Wt: 41 pounds. In general, he is an alert 5-year-old in no acute distress. Tympanic membranes are clear. Oropharynx is clear. Neck is supple without adenopathy. The lungs are clear to auscultation. He had no CVA tenderness. Abdomen is soft, nondistended without any hepatosplenomegaly or masses. He complains of a little tenderness more in the epigastric area, but otherwise his abdomen felt very soft. He is able to jump up and down without difficulty. I did do a chest x ray today just to make sure he did not have any evidence of any pneumonia and that was negative. ASSESSMENT: Recurring abdominal pain. PLAN: Will do stool cultures for bacteria and C. difficile. I also recommended a trial of Mylanta to use 1 - 1 1/2 tsp. before meals and at bedtime. Will continue to keep him off dairy products and see how he responds to that. If this is not improving, they should let us know. [id number] Jessi Murphy APRN, CNP - 11/02/1995 12:01 AM CDT Progress Notes signed by Jessi Murphy APRN, CNP at 11/06/95 1536 Author: ELLE Ragland Service: (none) Author Type: Nurse Practitioner Filed: 08/03/102011 Note Time: 11/02/95 0001 Status: Signed Programming Development Project Manager: ELLE Ragland (Nurse Practitioner) IMPRESSION: Rule out Giardia. SUBJECTIVE: Edward Eng is in for the possibility of a reoccurrence of Giardia. He was diagnosed on 10/12/95 with Giardia and treated with a seven day course of Flagyl. Three others were tested positive in his family and also treated at the same time. A 6-month-old brother, however, was the only family member who was not treated, however, he was asymptomatic. Mom thought that he seemed well after his treatment of Giardia. Five days ago he was sick with viral croup symptoms, was seen in the clinic and started on Ceclor which he has been taking for the past five days. They did not have any positive findings for pneumonia or bronchitis and he was afebrile. However, the provider evidently was unable to be certain of the absence of infection so started him on Ceclor. He has been taking 1/2 tsp. twice a day since 10/27/95. About three days ago mom noticed that Edward's appetite had decreased, he was more tired than usual and yesterday he had an episode of vomiting. Today he had an explosive episode of diarrhea, which has been his first episode for at least a couple of weeks. He just had one episode this morning and has not had any subsequent diarrhea. Mom, of course, is anxious, thinking that he may have reoccurrence of his Giardia. Adverse drug reactions to: PENICILLIN. OBJECTIVE: T: 100.2. WT: 42-1/2 pounds. Edward looks well. He is smiling and real playful with his brother. He is well hydrated. Skin color is good. HEENT examination is normal. Lung examination completely clear with no residual croup symptoms. Abdomen is soft and non-tender with normal bowel sounds. Rectum is clear. ASSESSMENT: Rule out Giardia. PLAN: I elected to discontinue his Ceclor in the absence of infection as his GI symptoms may be secondary to that. Also recommended Giardia screen x 1 and will treat depending on the results. Symptomatic care was reviewed in the meantime. Mom will return with that specimen hopefully today or tomorrow. [id number] Isra Luna MD - 10/09/1995 12:01 AM CDT Progress Notes signed by Isra Luna MD at 10/22/95 5111 Author: Isra Luna MD Service: (none) Author Type: (none) Filed: 08/03/101958 Note Time: 10/09/95 0001 Status: Signed Programming Development Project Manager: Isra Luna MD (Physician) IMPRESSION: Probable normal child. SUBJECTIVE: 5-year-old white male who had several diarrheal stools on 10/04 and none since. He is passing more flatus. He does have a good appetite. He's not vomiting. Dad was diagnosed today with Giardia. They have a cabin in [place]. They have a new well. It's been tested, and they don't know of any other possible source. They've not traveled otherwise. ADVERSE DRUG REACTIONS: PENICILLIN. MEDICATIONS: None. OBJECTIVE: T: 97.1 degrees. P: 92. R: 24. Wt: 43 lb. He's bright and alert and in no distress. Abdomen is soft, flat, and nontender. Bowel sounds are slightly hyperactive. ASSESSMENT: Probable normal child. PLAN: Mom will submit stools for Giardia antigen if he has any more diarrhea. Return to clinic sooner prn increasing problems. clh [facility] - 10/09/1995 12:01 AM CDT Phone Note signed by at 10/09/95 0198 Author: Don Conversion Service: (none) Author Type: (none) Filed: 08/03/101958 Note Time: 10/09/952058 Status: Signed Programming Development Project Manager: Don Corona IMPRESSION: possible giardia - REFERRED PATIENT TO URGENT CARE AT [facility] * HOME PHONE:[phone] * SUBJECTIVE: PATIENT COMPLAINS OF... mom calling. father recently diagnosed with giardia and is currently being tx for same. mom is symptomatic for possible giardia. mom states child has had foul smelling stools, no other sx or c/o. ALLERGIES/SENSITIVITIES... PCN CURRENT MEDICATIONS... none PERTINENT PAST HISTORY... none ASSESSMENT: possible giardia DISPOSITION: SEMI-URGENT PLAN: RECOMMENDED THE FOLLOWING... referred to for evaluation with 3 other family members Verbalizes understanding and agrees with phone care recommendation INFORMED PATIENT TO CALLBACK IF... other questions/concerns CALL BY REGGIE JARA RN 10/09/1995 06:10PM [phone] ADDENDUM: Alo Rasmussen MD - 08/17/1995 12:01 AM CDT Progress Notes signed by Alo Rasmussen MD at 08/25/95 0813 Author: Alo Rasmussen MD Service: (none) Author Type: Physician Filed: 08/03/101928 Note Time: 08/17/95 0001 Status: Signed Programming Development Project Manager: Alo Rasmussen MD (Physician) IMPRESSION: Tibia fracture. SUBJECTIVE: Edward returns for follow up of his right tibia fracture. His father reports there has been no problems with him walking in the cast. OBJECTIVE: On examination, the cast is removed. There is no swelling or tenderness over the tibia. Follow-up x-rays shows no change in the nondisplaced fracture of the distal tibia. ASSESSMENT: Tibia fracture. PLAN: This is very stable, and I assume in this young child is healing well at this point. We will leave him out of the cast and let him resume his normal activities. Follow up on an as needed basis. [facility] Alo Rasmussen MD - 08/03/1995 12:01 AM CDT Progress Notes signed by Alo Rasmussen MD at 08/19/95 0953 Author: Alo Rasmussen MD Service: (none) Author Type: Physician Filed: 08/03/101920 Note Time: 08/03/95 0001 Status: Signed Programming Development Project Manager: Alo Rasmussen MD (Physician) IMPRESSION: Left tibia and first metatarsal fractures. SUBJECTIVE: Edward is a [id number] boy who is referred by Urgent Care for a fracture of his tibia. He had fallen yesterday and was seen in Urgent Care, and x-rays demonstrated a fracture of the mid to distal tibial shaft. He was placed in a splint and returns here for follow up. OBJECTIVE: On examination, there really is little swelling of the distal leg. There is some mild swelling on the dorsum of the foot. Neurovascular exam is intact. We reviewed the x-rays which shows what appears to be a fracture at the base of first metatarsal and fracture along the lateral cortex of the mid to distal tibia. ASSESSMENT: Left tibia and first metatarsal fractures. PLAN: These appear to be very stable injuries. I recommended that we place him into a short-leg walking cast to give him a little extra protection and comfort. We will see him back for follow up in two weeks with an AP x-ray of the tibia and left foot. [facility] Grady Dye MD - 08/02/1995 12:01 AM CDT Progress Notes signed by Grady Dye MD at 08/05/95 3277 Author: Grady Dye MD Service: (none) Author Type: Physician Filed: 08/03/10 748 Note Time: 08/02/95 0001 Status: Signed Programming Development Project Manager: Grady Dye MD (Physician) IMPRESSION: Tibial fracture, nondisplaced. SUBJECTIVE: Patient is a 5-year-old that enters today after he fell off a plastic slide at daycare approximately 3-4 feet fall. He did not hit his head. He has been complaining consistently of lower leg pain and some pain in the entire leg itself. He is not bearing weight well on it as well. No head injury was noted. He did fall also onto his back according to his sister. MEDICATIONS: None. ADVERSE DRUG REACTIONS: PENICILLIN. No other underlying health problems noted. OBJECTIVE: T: 99.2 F, tympanic. P: 96, regular. R: 22. Wt: 43. Patient is an alert, pleasant 5-year-old in moderate discomfort. There is mild to moderate tenderness noted to palpation of the left femur itself. Main area of tenderness is on mid lower shaft of the left anterior leg. There's minimal contusion forming distal CMS. Foot is otherwise intact. Foot is warm. DP and PT pulses intact. X-ray of the left leg and femur reveal a fracture, nondisplaced, mid- shaft of left tibia. ASSESSMENT: Tibial fracture, nondisplaced. PLAN: At this point Edward was placed in a long leg splint, non weight bearing over the next 2-3 days. Parents will ice three or four times daily. Use Tylenol or ibuprofen for discomfort. They were also given if necessary Tylenol with codeine elixir two ounces 3/4 tsp q 6-8 hours prn pain at hs. CMS evaluation and distal leg evaluation discussed in splint. They will follow up in Orthopedics in the next 2 3 days. tfk Conversion, [facility] - 04/11/1995 12:01 AM CST Phone Note signed by at 04/11/95 9065 Author: Don Conversion Service: (none) Author Type: (none) Filed: 08/03/10 1821 Note Time: 04/11/95 0001 Status: Signed Programming Development Project Manager: Don Conversion IMPRESSION: Fever (3months to 3 years) nurse guideline SUBJECTIVE: PATIENT COMPLAINS OF... Fever,; * HOME PHONE:[phone] * Mother calling; child with fever * CONTACT PHONE:[phone] * of 103.6(otic) tonight. Mom gave * mom * tylenol. ; ALLERGIES/SENSITIVITIES... penicillin 04/11/95 CURRENT MEDICATIONS... tylenol 04/11/95 PERTINENT PAST HISTORY... pneumonia 04/11/95 ASSESSMENT: Fever (3months to 3 years) nurse guideline DISPOSITION: HOME CARE PLAN: RECOMMENDED THE FOLLOWING... Fever (3months to 3 years) nurse guideline was the Guideline used. -Dress lightly; -Encourage increased intake of clear liquids; -Give acetaminophen as directed; -Observe appearance and behavior and call for advice as needed; INFORMED PATIENT... Patient information given per Fever nurse guideline.; Verbalizes understanding and agrees with phone care recommendation INFORMED PATIENT TO CALLBACK IF... -Serious symptoms develop; MISC COMMENTS... Mom will call back tonight if sx. persist. CALL BY ROYAL RIVERA 04/11/1995 10:48PM [phone] ADDENDUM: ADDENDUM 04/12/1995 09:34AM BY EDNA NICKERSON: Mom states child is doing better but continues to have a fever of 102.4 F today w/ a good respon se to tylenol, informed Mom to call back if she has further concerns MARKER Elvi Beasley MD - 12/13/1994 12:01 AM CDT Progress Notes signed by Elvi Beasley MD at 12/16/94 0837 Author: Elvi Beasley MD Service: (none) Author Type: Physician Filed: 08/03/10 4383 Note Time: 12/13/94 0001 Status: Signed Programming Development Project Manager: Elvi Beasley MD (Physician) IMPRESSION: Upper respiratory infection. SUBJECTIVE: Edward is a 2 1/2-year-old who comes in having had some croupy cough and some mattering eyes. He has had no rhinorrhea, but he has had a little loose stools. He has been more fussy and slept a little more today. ALLERGIES: 1. PENICILLIN. OBJECTIVE: He was not weighed today. In general, he is an alert 2 1/2-year-old in no acute distress. He had a lot of cerumen in the left canal, which I removed, but both tympanic membranes were clear. Oropharynx clear. Neck supple without any adenopathy. Lungs clear to auscultation. ASSESSMENT: Upper respiratory infection. PLAN: For now, I'd continue to treat him symptomatically and he should follow up if his symptoms are not improving or if any other concerns or questions arise. beh Elvi Beasley MD - 09/23/1994 12:01 AM CDT Progress Notes signed by Elvi Beasley MD at 10/06/94 0831 Author: Elvi Beasley MD Service: (none) Author Type: Physician Filed: 08/03/10 8102 Note Time: 09/23/94 0001 Status: Signed Programming Development Project Manager: Elvi Beasley MD (Physician) IMPRESSION: Nonfocal exam and persistent diarrhea. SUBJECTIVE: Edward is a [id number] who has had some diarrhea for the last 2-3 weeks. It had been up to 4 or 5 times a day and is down to a couple of times a day. He always has problems with some looser stools. He has had no blood in his stools. He has been more irritable. He did have a cough, but that seems better but does have some congestion. He has had no fever. ALLERGIES: PENICILLIN. OBJECTIVE: Wt: 34 lb. In general, he is an alert [id number] in no acute distress. Tympanic membranes were clear. Oropharynx clear. Neck supple without any adenopathy. Lungs clear to auscultation. Abdomen appeared soft and nontender. ASSESSMENT: Nonfocal exam and persistent diarrhea. PLAN: Apparently, parents have been up to a cabin on the weekends that does have well water, so will check his stool for Giardia and also will do stool cultures for bacteria. If those are positive, would, then, go ahead and treat him. Otherwise, I went over dietary things that mom could try for now, and she should let us know if his symptoms are not improving or if any other concerns or questions arise. Elvi Beasley MD - 07/22/1994 12:01 AM CDT Progress Notes signed by Elvi Beasley MD at 07/27/94 1303 Author: Elvi Beasley MD Service: (none) Author Type: Physician Filed: 08/03/10 1734 Note Time: 07/22/94 0001 Status: Signed Programming Development Project Manager: Elvi Beasley MD (Physician) IMPRESSION: Healthy 4-year-old. SUBJECTIVE: Edward Eng is a 4-year-old who comes in today for a checkup. Really mom has no specific concerns or questions. As far as his past medical history, last February he was in the hospital for some wheezing. It sounds like initially it may have been some stridor and then developed more of an expiratory wheeze. He has had problems with recurring croup and they were concerned that he might have some lesions on his vocal cords and actually he had a laryngoscopy done but it was normal. Otherwise he has had no other hospitalizations or surgeries. Been updated on his immunizations. He did develop just a fine erythematous papular rash with penicillin so he has a possible penicillin allergy. As far as his diet, he drinks about 3-4 glasses of milk per day. Is picky with vegetables but likes fruits and meats. I did suggest giving him a multi- vitamin. Mom states that he tends to have looser stools about 2-3 per day. Does not drink a lot of juices. There is some family history of some milk intolerance and I did tell mom she could try cutting dairy out if his diet and see if it makes any difference to see if he has lactose intolerance. Otherwise the stools do not seem to bother him. He is showing just a little interest in potty training. He falls asleep on his own. Sleeps well at night. Takes two naps per day. Developmentally he is speaking well. Is combining words. Can identify different parts of his body and different objects and animals. Likes to play with puzzles. Is trying to do some scribbling. Can throw and a hit a ball off a wendie and is learning to catch a ball. Starting to help with undressing himself. They have non concerns about his hearing or vision. He has had no exposure to tuberculosis. OBJECTIVE: HT: 38 inches (above the 95 percentile). WT: 34 pounds (above the 95 percentile). OFC: 50.5 cm (80 percentile). Physical exam was within normal limits. ASSESSMENT: Healthy 4-year-old. PLAN: I did give mom information on hepatitis B vaccination that she might want to think about when he is older. Otherwise his next checkup should be at . Mom is going to call us with the shot dates from his previous shots since she has those at home. Elvi Beasley MD - 06/20/1994 12:01 AM CST Progress Notes signed by Elvi Beasley MD at 07/08/94 1790 Author: Elvi Baesley MD Service: (none) Author Type: Physician Filed: 08/03/10 2514 Note Time: 06/20/94 0001 Status: Signed Programming Development Project Manager: Elvi Beasley MD (Physician) IMPRESSION: 1) Resolved otitis media. 2) Resolving diaper rash. SUBJECTIVE: Edward is a normal 4-year-old who comes in today having been new to our clinic. He apparently had what sounds like a bullous impetigo in his diaper area. He was on erythromycin and now is just on Bactroban. Also, he had an ear infection. He has had a little rhinorrhea but no cough or fever. Mom feels that the rash has gotten much better. He finished the erythromycin last week. ALLERGIES: PENICILLIN. OBJECTIVE: WT: 35 pounds. In general, he is an alert almost 5-year-old in no acute distress. TMs are clear. Oropharynx is clear. Neck is supple without any adenopathy. Lungs are clear to auscultation. Diaper revealed just some hyperpigmented areas and some slight erythematous macular diaper rash, but there are no gross lesions and no open areas. ASSESSMENT: 1. Resolved otitis media. 2. Resolving diaper rash. PLAN: I recommended just continuing the Bactroban until it is completely clear, and they should let us know sooner if questions or concerns arise. MARKER documented in this encounter Plan of Treatment Not on filedocumented as of this encounter Procedures Procedure Name Priority Date/Time Associated Comments Diagnosis XR WRIST LT 3+ VIEWS Routine 04/28/2003 3:43 PM R esults for this TAG MARKER procedure are i n the results section. XR WRIST LT 3+ VIEWS Routine 03/31/2003 1:50 PM R esults for this TAG MARKER procedure are i n the results section. XR WRIST LT 3+ VIEWS Routine 03/25/2003 3:58 PM R esults for this TAG MARKER procedure are i n the results section. XR CHEST PA WITH Routine 05/08/2002 3:15 PM Resul ts for this LATERAL TAG MARKER procedure are i n the results section. STREP GROUP A ANTIGEN Routine 05/03/2002 12:49 Re sults for this TEST PM TAG MARKER procedure are i n the results section. BETA STREP FOLLOWUP Routine 05/03/2002 12:49 Resu lts for this PM TAG MARKER procedure are i n the results section. STREP GROUP A ANTIGEN Routine 04/26/2002 10:47 Re sults for this TEST AM TAG MARKER procedure are i n the results section. BETA STREP FOLLOWUP Routine 04/26/2002 10:47 Resu lts for this AM TAG MARKER procedure are i n the results section. STREP GROUP A ANTIGEN Routine 11/26/2000 5:55 PM Results for this TEST CDT procedure are i n the results section. BETA STREP FOLLOWUP Routine 11/26/2000 5:55 PM Re sults for this CDT procedure are i n the results section. STREP GROUP A ANTIGEN Routine 05/09/2000 10:42 Re sults for this TEST AM TAG MARKER procedure are i n the results section. STREP GROUP A ANTIGEN Routine 05/30/1998 6:13 PM Results for this TEST TAG MARKER procedure are i n the results section. BETA STREP FOLLOWUP Routine 05/30/1998 6:13 PM Re sults for this TAG MARKER procedure are i n the results section. STREP GROUP A ANTIGEN Routine 03/27/1998 12:59 Re sults for this TEST PM TAG MARKER procedure are i n the results section. BETA STREP FOLLOWUP Routine 03/27/1998 12:59 Resu lts for this PM TAG MARKER procedure are i n the results section. XR CHEST PA WITH Routine 01/09/1998 4:27 PM Resul ts for this LATERAL CDT procedure are i n the results section. DIFFERENTIAL MANUAL Routine 11/25/1997 9:08 AM Re sults for this CDT procedure are i n the results section. WBC, BLOOD Routine 11/25/1997 9:08 AM Results f or this CDT procedure are i n the results section. STREP GROUP A ANTIGEN Routine 11/24/1997 3:19 PM Results for this TEST CDT procedure are i n the results section. BETA STREP FOLLOWUP Routine 11/24/1997 3:19 PM Re sults for this CDT procedure are i n the results section. STREP GROUP A ANTIGEN Routine 07/21/1997 4:43 PM Results for this TEST CDT procedure are i n the results section. ANC RESULT CONVERSION Routine 11/07/1995 10:27 Re sults for this DEFAULT ORDER AM CDT procedure are in the results section. ANC RESULT CONVERSION Routine 08/17/1995 12:05 Re sults for this DEFAULT ORDER PM CDT procedure are in the results section. ANC RESULT CONVERSION Routine 08/17/1995 12:05 Re sults for this DEFAULT ORDER PM CDT procedure are in the results section. ANC RESULT CONVERSION Routine 08/02/1995 7:41 PM Results for this DEFAULT ORDER CDT procedure are in the results section. documented in this encounter Results XR Wrist Lt 3+ Views (04/28/2003 3:43 PM TAG MARKER) Anatomical Region Laterality Modality Upper Extremity, Wrist Other Specimen (Source) Anatomical Location Collection Method / Collectio n Time Received Time / Laterality Volume Narrative 04/28/2003 3:43 PM TAG MARKER Healing fracture of the distal radius with good alignment. tss/[id number] Dictating SENTHIL IZAGUIRRE MD Procedure Note Senthil Marcano - 06/19/2016 Healing fracture of the distal radius wi th good alignment. tss/[id number] Dictating SENTHIL IZAGUIRRE MD Poonam Gustafson MD RAD GD XR Wrist Lt 3+ Views (03/31/2003 1:50 PM TAG MARKER) Anatomical Region Laterality Modality Upper Extremity, Wrist Other Specimen (Source) Anatomical Location Collection Method / Collectio n Time Received Time / Laterality Volume Narrative 03/31/2003 1:50 PM TAG MARKER Transverse greenstick fracture of the distal radius with good alignment. [id number] Dictating SENTHIL IZAGUIRRE MD Procedure Note Senthil Marcano - 06/19/2016 Transverse greenstick fracture of the di stal radius with good alignment. [id number] Dictating SENTHIL IZAGUIRRE MD Poonam Gustafson MD RAD GD XR Wrist Lt 3+ Views (03/25/2003 3:58 PM TAG MARKER) Anatomical Region Laterality Modality Upper Extremity, Wrist Other Specimen (Source) Anatomical Location Collection Method / Collectio n Time Received Time / Laterality Volume Impressions 03/25/2003 3:58 PM TAG MARKER : ??Healing distal radius fracture. [facility]/[id number] Dictating ADEOLA ANDRADE Radiologist Narrative 03/25/2003 3:58 PM TAG MARKER COMPARISON STUDY: ??Outside films from [facility] in [place], [place] dated 03/16/03. CLINICAL HISTORY: ??12-year-old male. ?? Follow-up fracture. FINDINGS: ??Again noted is a transverse, nondisplaced fracture through the distal radius. ??There has been slig ht interval healing when compared to the prior study. ??There is no change in alignment. Fracture line is not intraarticular. Procedure Note Adeola Junior MD - 06/19/2016Formattin g of this note might be different from the original. COMPARISON STUDY: Outside films from [facility] in [place], [place] dated 03/16/03. CLINICAL HISTORY: 12-year-old male. Foll ow-up fracture. FINDINGS: Again noted is a transverse, n ondisplaced fracture through the distal radius. There has been slight interval healing when compared to the prior study. There is no change in alignment. Fracture line is not intraarticular. IMPRESSION : Healing distal radius fracture. [facility]/[id number] Dictating ADEOLA ANDRADE Radiologist Poonam Gustafson MD RAD GD XR Chest PA With Lateral (05/08/2002 3:15 PM TAG MARKER) Anatomical Region Laterality Modality Other Specimen (Source) Anatomical Location Collection Method / Collectio n Time Received Time / Laterality Volume Narrative 05/08/2002 3:15 PM TAG MARKER CLINICAL DATA: ?CHEST PAIN FINDINGS: ?NO COMPARISON. ??CARDIOVASCULAR SY STEM IS NORMAL. ??THE LUNGS ?ARE CLEAR. ??HYPOPLASTIC LEFT FIRS T RIB INCIDENTALLY NOTED. ?[id number]/Songkick TECH-ID : ? JOSEPH TRANS-ID: ? EDR Procedure Note Golden Richter - 06/19/2016Formatting o f this note might be different from the original. CLINICAL DATA: CHEST PAIN FINDINGS: NO COMPARISON. CARDIOVASCULAR SYSTEM IS NORMAL. THE LUNGS ARE CLEAR. HYPOPLASTIC LEFT FIRST RIB I NCIDENTALLY NOTED. [id number]/[employer] TECH-ID : JOSEPH TRANS-ID: EDR Rylan Weinberg MD RAD GD Strep Group A Antigen Test (05/03/2002 12:49 PM TAG MARKER) Analysis Performed At [facility] Time Signature Strep Group A Negative Negative HP CONVERSION Antigen Test Comment: Culture to follow. Specimen (Source) Anatomical Collection Method Collection Time Re ceived Time Location / / Volume Laterality 05/03/2002 12:49 PM TAG MARKER Rylan Weinberg MD LAB_1 Performing Organization Address City/State/ZIP Code Phon e Number HP CONVERSION (ABNORMAL) Beta Strep Followup (05/03/2002 12:49 PM TAG MARKER) Analysis Performed At Patho logist Time Signature Strep Screen SEE TEXT HP CONVERSION (A) Comment: Patient: EDWARD ENG Rapid Strep Follow up Culture @ ? Collected: ??[id number] ??[id number] Source: Throat ?Processed: ??[id number] ??[id number] Final Report ------ ?[id number] ??[id number] Beta Strep Group A Present. ICSI Pharyngitis guideline recommends Penicillin V potassium (Pen VK) in nonal lergic patients. If < 50 lbs, 250 mg PenVK BID for 10 day s. >=50 lbs, 500 mg PenVK BID for 10 days. @ = Rapid F/U Cult Performed at ??[address] [place], [place] ?[address] Specimen (Source) Anatomical Collection Method Collection Time Re ceived Time Location / / Volume Laterality 05/03/2002 12:49 PM TAG MARKER Rylan Weinberg MD LAB_1 Performing Organization Address City/[facility]/ZIP Code Phon e Number HP CONVERSION Strep Group A Antigen Test (04/26/2002 10:47 AM TAG MARKER) Analysis Performed At [facility]o [facility] Time Signature Strep Group A Negative Negative HP CONVERSION Antigen Test Comment: Culture to follow. Specimen (Source) Anatomical Collection Method Collection Time Re ceived Time Location / / Volume Laterality 04/26/2002 10:47 AM TAG MARKER Javier Azevedo MD LAB_1 Performing Organization Address City/[facility] Code Phon e Number HP CONVERSION Beta Strep Followup (04/26/2002 10:47 AM TAG MARKER) P athologist Signature Strep Screen SEE TEXT HP CONVERSION Comment: Patient: EDWARD ENG Rapid Strep Follow up Culture @ ? Collected: ??[id number] ??[id number] Source: Throat ?Processed: ??[id number] ??1050 Final Report ------ ?[id number] ??1008 No beta hemolytic Strep group A isolated . @ = Rapid F/U Cult Performed at [address] [place], [place] ?[address] Specimen (Source) Anatomical Collection Method Collection Time Re ceived Time Location / / Volume Laterality 04/26/2002 10:47 AM TAG MARKER Javier Azevedo MD LAB_1 Performing Organization Address City/[facility] Phon e Number HP CONVERSION Strep Group A Antigen Test (11/26/2000 5:55 PM CDT) Analysis Performed At [facility]o [facility] Time Signature Strep Group A Negative Negative HP CONVERSION Antigen Test Comment: Culture to follow. Specimen (Source) Anatomical Collection Method Collection Time Re ceived Time Location / / Volume Laterality 11/26/2000 5:55 PM CDT Poonam Gustafson MD LAB_1 Performing Organization Address City/[facility] Code Phon e Number HP CONVERSION Beta Strep Followup (11/26/2000 5:55 PM CDT) athologist Signature Strep Screen SEE TEXT HP CONVERSION Comment: Patient: EDWARD ENG Rapid Strep Follow up Culture @ ? Collected: ??[id number] ??[id number] Source: Throat ?Processed: ??[id number] ??[id number] ? 1V Final Report ------ ?[id number] ??1118 No beta hemolytic Strep group A isolated . @ = Rapid F/U Cult Performed at [address] [place], [place] ?[address] Specimen (Source) Anatomical Collection Method Collection Time Re ceived Time Location / / Volume Laterality 11/26/2000 5:55 PM CDT Poonam Gustafson MD LAB_1 Performing Organization Address City/State/ZIP Code Phon e Number HP CONVERSION Strep Group A Antigen Test (05/09/2000 10:42 AM TAG MARKER) [facility] Time Signature Strep Group A Positive Negative HP CONVERSION Antigen Test Specimen (Source) Anatomical Collection Method Collection Time Re ceived Time Location / / Volume Laterality 05/09/2000 10:42 AM TAG MARKER Charli Cuenca MD LAB_1 Performing Organization Address City/State/ZIP Code Phon e Number HP CONVERSION Strep Group A Antigen Test (05/30/1998 6:13 PM TAG MARKER) Analysis Performed At [facility] Time Signature Strep Group A Negative Negative HP CONVERSION Antigen Test Comment: Culture to follow. Specimen (Source) Anatomical Collection Method Collection Time Re ceived Time Location / / Volume Laterality 05/30/1998 6:13 PM TAG MARKER Daiana Valadez MD LAB_1 Performing Organization Address [facility] Code Phon e Number HP CONVERSION Beta Strep Followup (05/30/1998 6:13 PM TAG MARKER) athologist Signature Strep Screen SEE TEXT HP CONVERSION Comment: Patient: EDWARD ENG Rapid Strep Follow up Culture @ ? Collected: ??[id number] ??[id number] Source: Throat ?Processed: ??[id number] ??[id number] ? 1V Final Report ------ ?[id number] ??1211 No beta hemolytic Strep group A isolated . @ = Rapid F/U Cult Performed at [address] [place], [place] ?[address] Specimen (Source) Anatomical Collection Method Collection Time Re ceived Time Location / / Volume Laterality 05/30/1998 6:13 PM TAG MARKER Daiana Valadez MD LAB_1 Performing Organization Address City/State/ZIP Code Phon e Number HP CONVERSION Strep Group A Antigen Test (03/27/1998 12:59 PM TAG MARKER) Analysis Performed At Patho logist Time Signature Strep Group A Negative Negative HP CONVERSION Antigen Test Comment: Culture to follow. Specimen (Source) Anatomical Collection Method Collection Time Re ceived Time Location / / Volume Laterality 03/27/1998 12:59 PM TAG MARKER Kathya Slater MD LAB_1 Performing Organization Address City/[facility] Code Phon e Number HP CONVERSION Beta Strep Followup (03/27/1998 12:59 PM TAG MARKER) P athologist Signature Strep Screen SEE TEXT HP CONVERSION Comment: Patient: EDWARD ENG Rapid Strep Follow up Culture @ ? Collected: ??[id number] ??[id number] Source: Throat ?Processed: ??[id number] ??[id number] ? 1V Final Report ------ ?[id number] ??0802 No beta hemolytic Strep group A isolated . @ = Rapid F/U Cult Performed at [address] [place] ?[address] Specimen (Source) Anatomical Collection Method Collection Time Re ceived Time Location / / Volume Laterality 03/27/1998 12:59 PM TAG MARKER Kathya Slater MD LAB_1 Performing Organization Address [facility] Phon e Number HP CONVERSION XR Chest PA With Lateral (01/09/1998 4:27 PM CDT) Anatomical Region Laterality Modality Other Specimen (Source) Anatomical Location Collection Method / Collectio n Time Received Time / Laterality Volume Impressions 01/09/1998 4:27 PM CDT : ?? NORMAL CHEST. FINDINGS: ?? CH1 ?? THE CARDIOVASCULAR STRUCTURES APPEAR NORMAL. ?? NO EVIDENCE OF ACTIVE PULMONARY DISE ASE. TECH-ID : ? 50 TRANS-ID: Narrative 01/09/1998 4:27 PM CDT CLINICAL DATA: ?DIFFICULTY BREATHING Procedure Note Charan Veronica FoxNey - 06/23/2016 CLINICAL DATA: DIFFICULTY BREATHING IMPRESSION : NORMAL CHEST. FINDINGS: CH1 THE CARDIOVASCULAR STRUCTURES APPEAR NO RMAL. NO EVIDENCE OF ACTIVE PULMONARY DISEASE . TECH-ID : 50 TRANS-ID: Elvi Beasley MD RAD GD WBC, Blood (11/25/1997 9:08 AM CDT) P athologist Signature White Blood 5.8 5.0 - 14.5 HP CONVERSION Cell Count K/cmm Specimen (Source) Anatomical Collection Method Collection Time Re ceived Time Location / / Volume Laterality 11/25/1997 9:08 AM CDT Elvi Beasley MD LAB_1 Performing Organization Address [facility] Phon e Number HP CONVERSION (ABNORMAL) Differential Manual (11/25/1997 9:08 AM CDT) Patholo gist Method Time Signature Neutrophils 51 32 - 54 % HP CONVERSION Lymphocytes 38 28 - 48 % HP CONVERSION Monocyte 11 (HH) 3 - 6 % HP CONVERSION Platelet Normal No normal HP CONVERSION Estimate range Specimen (Source) Anatomical Collection Method Collection Time Re ceived Time Location / / Volume Laterality 11/25/1997 9:08 AM CDT Elvi Beasley MD LAB_1 Performing Organization Address [facility] Phon e Number HP CONVERSION Strep Group A Antigen Test (11/24/1997 3:19 PM CDT) Analysis Performed At Patho logist Time Signature Strep Group A Negative Negative HP CONVERSION Antigen Test Comment: Culture to follow. Specimen (Source) Anatomical Collection Method Collection Time Re ceived Time Location / / Volume Laterality 11/24/1997 3:19 PM CDT Rylan Weinberg MD LAB_1 Performing Organization Address City/[facility] Code Phon e Number HP CONVERSION Beta Strep Followup (11/24/1997 3:19 PM CDT) athologist Signature Strep Screen SEE TEXT HP CONVERSION Comment: Patient: EDWARD ENG Rapid Strep Follow up Culture @ ? Collected: ??[id number] ??[id number] Source: Throat ?Processed: ??[id number] ??[id number] ? 1C Final Report ------ ?[id number] ??[id number] No beta hemolytic Strep group A isolated . @ = Rapid F/U Cult Performed at [address] [place], [place] ?[address] Specimen (Source) Anatomical Collection Method Collection Time Re ceived Time Location / / Volume Laterality 11/24/1997 3:19 PM CDT Rylan Weinberg MD LAB_1 Performing Organization Address [facility] Phon e Number HP CONVERSION Strep Group A Antigen Test (07/21/1997 4:43 PM CDT) Analysis Performed At Patho logist Time Signature Strep Group A Positive Negative HP CONVERSION Antigen Test Specimen (Source) Anatomical Collection Method Collection Time Re ceived Time Location / / Volume Laterality 07/21/1997 4:43 PM CDT Elvi Beasley MD LAB_1 Performing Organization Address City/State/ZIP Code Phon e Number HP CONVERSION Anc Result Conversion Default Order (11/07/1995 10:27 AM CDT) Anatomical Region Laterality Modality Other Specimen (Source) Anatomical Location Collection Method / Collectio n Time Received Time / Laterality Volume Narrative 11/07/1995 10:27 AM CDT CLINICAL DATA: ?POSITIVE GIARDIA/STILL PAIN AFTER NEG TEST FINDINGS: ?THERE IS A SOMEWHAT SHALLOW INSPIR ATION. ??THE HEART IS AT THE UPPER ?NORMAL LIMIT. ??THE LUNGS ARE MARIA ELENA R, WITHOUT INFILTRATES. TECH-ID : TRANS-ID: ? LAP Procedure Note Manav Best MD - 06/23/2016 CLINICAL DATA: POSITIVE GIARDIA/STILL PAIN AFTER NEG T EST FINDINGS: THERE IS A SOMEWHAT SHALLOW INSPIRATION . THE HEART IS AT THE UPPER NORMAL LIMIT. THE LUNGS ARE CLEAR, WITH OUT INFILTRATES. TECH-ID : TRANS-ID: LAP Elvi Beasley MD RAD GD Anc Result Conversion Default Order (08/17/1995 12:05 PM CDT) Anatomical Region Laterality Modality Other Specimen (Source) Anatomical Location Collection Method / Collectio n Time Received Time / Laterality Volume Narrative 08/17/1995 12:05 PM CDT CLINICAL DATA: ?F/U FX FINDINGS: ?COMPARED WITH 08/02/95, I SEE NO AP PRECIABLE CHANGE IN THE FRACTURE ?INVOLVING THE LATERAL BASE OF THE FIRST METATARSAL. ??NO APPRECIABLE ?BRIDGING CALLUS IS SEEN. ??OTHERWI SE UNREMARKABLE. TECH-ID : ? OO TRANS-ID: ? LAP Procedure Note Golden Richter MD - 06/19/2016Format ting of this note might be different from the original. CLINICAL DATA: F/U FX FINDINGS: COMPARED WITH 08/02/95, I SEE NO APPRECI ABLE CHANGE IN THE FRACTURE INVOLVING THE LATERAL BASE OF THE FIRST METATARSAL. NO APPRECIABLE BRIDGING CALLUS IS SEEN. OTHERWISE UNRE MARKABLE. TECH-ID : OO TRANS-ID: LAP Alo Rasmussen MD RAD GD Anc Result Conversion Default Order (08/17/1995 12:05 PM CDT) Anatomical Region Laterality Modality Other Specimen (Source) Anatomical Location Collection Method / Collectio n Time Received Time / Laterality Volume Narrative 08/17/1995 12:05 PM CDT CLINICAL DATA: ?F FINDINGS: ?COMPARED WITH 08/02/95, EARLY FINCH ES OF HEALING OF THE PREVIOUSLY ?DESCRIBED OBLIQUE FRACTURE OF THE DISTAL TIBIA EXTENDING TO THE ?METAPHYSEAL AREA. ??NO DISPLACEMEN T. TECH-ID : ? OO TRANS-ID: ? LAP Procedure Note Golden Richter MD - 06/19/2016Format ting of this note might be different from the original. CLINICAL DATA: F FINDINGS: COMPARED WITH 08/02/95, EARLY CHANGES OF HEALING OF THE PREVIOUSLY DESCRIBED OBLIQUE FRACTURE OF THE DISTA L TIBIA EXTENDING TO THE METAPHYSEAL AREA. NO DISPLACEMENT. TECH-ID : OO TRANS-ID: LAP Alo Rasmussen MD RAD GD Anc Result Conversion Default Order (08/02/1995 7:41 PM CDT) Anatomical Region Laterality Modality Other Specimen (Source) Anatomical Location Collection Method / Collectio n Time Received Time / Laterality Volume Narrative 08/02/1995 7:41 PM CDT CLINICAL DATA: ?FELL OF A SLIDE TODAY LANDING ON L F LEG FINDINGS: ?AP/LATERAL FEMURS BILATERAL: ??NEG ATIVE. ?* ?AP/LATERAL TIBIA-FIBULA BILATERAL: ??ON THE LEFT SIDE, THERE IS A ?LUCENCY PROJECTING THROUGH THE DIS KEVON SHAFT OF THE TIBIA WHICH IS BEST ?SEEN ON THE LATERAL VIEW, CONSISTE NT WITH A NONDISPLACED HAIRLINE ?FRACTURE. ??ON THE AP VIEW, THERE IS A SECOND LUCENCY MORE DISTALLY ?NEAR THE DIAMETAPHYSEAL JUNCTION. ??I AM UNCERTAIN IF THIS REPRESENTS A ?FRACTURE LINE VS A PROMINENT TRABE CULATION OF THE BONE. ??THE LEFT ?TIBIA-FIBULA IS OTHERWISE NEGATIVE . ??THE RIGHT TIBIA-FIBULA IS ?NEGATIVE. ?* ?AP/LATERAL FEET BILATERAL: ??THE R IGHT FOOT IS NORMAL. ??THERE IS A ?FRACTURE THROUGH THE BASE OF THE F IRST METATARSAL LATERALLY. ??NO ?SIGNIFICANT DISPLACEMENT NOTED. TECH-ID : ? LS TRANS-ID: ? LAP Procedure Note Golden Richter MD - 06/19/2016Format ting of this note might be different from the original. CLINICAL DATA: FELL OF A SLIDE TODAY LANDING ON LF LEG FINDINGS: AP/LATERAL FEMURS BILATERAL: NEGATIVE. * AP/LATERAL TIBIA-FIBULA BILATERAL: ON T HE LEFT SIDE, THERE IS A LUCENCY PROJECTING THROUGH THE DISTAL S HAFT OF THE TIBIA WHICH IS BEST SEEN ON THE LATERAL VIEW, CONSISTENT WI TH A NONDISPLACED HAIRLINE FRACTURE. ON THE AP VIEW, THERE IS A SE COND LUCENCY MORE DISTALLY NEAR THE DIAMETAPHYSEAL JUNCTION. I AM UNCERTAIN IF THIS REPRESENTS A FRACTURE LINE VS A PROMINENT TRABECULAT ION OF THE BONE. THE LEFT TIBIA-FIBULA IS OTHERWISE NEGATIVE. THE RIGHT TIBIA-FIBULA IS NEGATIVE. * AP/LATERAL FEET BILATERAL: THE RIGHT FO OT IS NORMAL. THERE IS A FRACTURE THROUGH THE BASE OF THE FIRST METATARSAL LATERALLY. NO SIGNIFICANT DISPLACEMENT NOTED. TECH-ID : LS TRANS-ID: LAP Grady Dye MD RAD GD documented in this encounter Visit Diagnoses Not on filedocumented in this encounter Care Teams Grievance Manager Relationship Specialty Start Date End Date Javier Azevedo MD PCP - General 07/19/10 02/28/13 [address] [place] [address] documented as of this encounter
--- OUTSIDE RECORDS SUMMARY | 2022-01-14 10:51 | XMS_ITS | Encounter Summary ---
:1990 Author Organization [facility] Address [address] [place] [address] Care Team Providers Name Role Phone Sim Asher MD Primary Care Provider Encounter Details Date Type Department Care Team Description 07/12/2004 PN Conversion Only [place] CONVERSION Eddie Weinberg MD [address] [place] [address] [place] [phone] (Wo rk) Social History Tobacco Use Types Packs/Day Years Used Date Smoking Tobacco: Never Assessed Sex Assigned at Date Recorded Not on file documented as of this encounter Plan of Treatment Not on filedocumented as of this encounter Procedures Procedure Name Priority Date/Time Associated Diagnosis Comme nts STREP GROUP A Routine 07/12/2004 1:44 PM Results for this ANTIGEN TEST CARD WRITER HAND procedure are i n the results section. BETA STREP FOLLOWUP Routine 07/12/2004 1:44 PM Re sults for this CARD WRITER HAND procedure are i n the results section. documented in this encounter Results Strep Group A Antigen Test (07/12/2004 1:44 PM CARD WRITER HAND) Analysis Performed At Patho logist Time Signature Strep Group A Negative Negative HP CONVERSION Antigen Test Comment: Culture to follow. Specimen (Source) Anatomical Collection Method Collection Time Re ceived Time Location / / Volume Laterality 07/12/2004 1:44 PM CARD WRITER HAND Eddie Weinberg MD LAB_1 Performing Organization Address City/State/ZIP Code Phon e Number HP CONVERSION Beta Strep Followup (07/12/2004 1:44 PM CARD WRITER HAND) P athologist Signature Strep Screen SEE TEXT HP CONVERSION Comment: Patient: EDWARD DREW Rapid Strep Follow up Culture @ ? Collected: ??[id number] ??[id number] Source: Throat ?Processed: ??[id number] ??[id number] Final Report ------ ?[id number] ??[id number] No beta hemolytic Strep group A isolated . @ = Rapid F/U Cult Performed at [address] [place], [place] ?[address] Specimen (Source) Anatomical Collection Method Collection Time Re ceived Time Location / / Volume Laterality 07/12/2004 1:44 PM CARD WRITER HAND Eddie Weinberg MD LAB_1 Performing Organization Address City/State/ZIP Code Phon e Number HP CONVERSION documented in this encounter Visit Diagnoses Not on filedocumented in this encounter Care Teams Motion Picture Printer Relationship Specialty Start Date End Date Sim Asher MD PCP - General 07/19/10 02/28/13 [address] [place] [address] documented as of this encounter
--- OUTSIDE RECORDS SUMMARY | 2022-01-14 10:51 | XMS_ITS | Encounter Summary ---
:1990 Author Organization [employer] Address [address] [place] [address] Care Team Providers Name Role Phone Sim Asher MD Primary Care Provider Encounter Details Date Type Department Care Team Description 12/23/2003 Office Visit [facility] Rylan Weinberg MD [address] [facility] [place] [address] [place] [address] [phone] (Wo rk) Social History Tobacco Use Types Packs/Day Years Used Date Smoking Tobacco: Never Assessed Sex Assigned at Date Recorded Not on file documented as of this encounter Progress Notes Rylan Weinberg MD - 12/23/2003 12:01 AM CDT Progress Notes signed by Rylan Weinberg MD at 12/24/03 1516 Author: Rylan Weinberg MD Service: (none) Author Type: Physician Filed: 08/06/10 0007 Note Time: 12/23/03 0001 Status: Signed Layout Mechanic: Rylan Weinberg MD (Physician) NAME: EDWARD DREW MR: [id number] ACCT: [id number] VISIT: [id number] DICTATING CLINICIAN: RYLAN WEINBERG MD JOB: [id number] CLINIC PROGRESS NOTE DATE OF VISIT: 12/23/2003 SUBJECTIVE: Edward comes in today for complaint of congestion and cough. Has felt a little feverish. No temperature taken since yesterday. Sister diagnosed with pneumonia about 5 days ago. He has had a little runny nose, some chest discomfort. He has been using his albuterol inhaler once a day as he has had mild symptoms of exercise-induced asthma in the past. ADR/ALLERGIES: PENICILLIN. OBJECTIVE: VS: Wt: 126 lb. TMs AND PHARYNX: Normal. Chest sounds clear. ABDOMEN: Soft, nontender. ASSESSMENT: A cough and possible mycoplasma pneumonia. PLAN: Discussed we will put him on Zithromax Z-Rajesh, two tabs times one and one tab daily x 4 days, #6. Return or call if not improving. DIAGNOSES: A cough and possible mycoplasma pneumonia. [facility]:[id number] C: 12/23/03 17:43 DOCUMENT: [id number] documented in this encounter Plan of Treatment Not on filedocumented as of this encounter Visit Diagnoses Not on filedocumented in this encounter Care Teams Agent Licensing Clerk Relationship Specialty Start Date End Date Sim Asher MD PCP - General 07/19/10 02/28/13 [address] [place], [place] [address] documented as of this encounter
--- OUTSIDE RECORDS SUMMARY | 2022-01-14 10:51 | XMS_ITS | Encounter Summary ---
:1990 Author Organization [facility] Address [address] [place] [address] Care Team Providers Name Role Phone Sim Asher MD Primary Care Provider Encounter Details Date Type Department Care Team Description 10/16/2002 PN Conversion Only OAKLEY CONVERSIO Jerry Brian, [address] [employer] [facility] [place] [address] [address] [place] [address] (Wo rk) Social History Tobacco Use Types Packs/Day Years Used Date Smoking Tobacco: Never Assessed Sex Assigned at Date Recorded Not on file documented as of this encounter Plan of Treatment Not on filedocumented as of this encounter Procedures Procedure Name Priority Date/Time Associated Diagnosis Comme nts STREP GROUP A Routine 10/16/2002 8:16 PM Results for this ANTIGEN TEST CDT procedure are i n the results section. BETA STREP FOLLOWUP Routine 10/16/2002 8:16 PM Re sults for this CDT procedure are i n the results section. documented in this encounter Results Strep Group A Antigen Test (10/16/2002 8:16 PM CDT) Analysis Performed At Patho logist Time Signature Strep Group A Negative Negative HP CONVERSION Antigen Test Comment: Culture to follow. Specimen (Source) Anatomical Collection Method Collection Time Re ceived Time Location / / Volume Laterality 10/16/2002 8:16 PM CDT Poonam Brian MD LAB_1 Performing Organization Address City/State/ZIP Code Phon e Number HP CONVERSION Beta Strep Followup (10/16/2002 8:16 PM CDT) P athologist Signature Strep Screen SEE TEXT HP CONVERSION Comment: Patient: EDWARD DREW Rapid Strep Follow up Culture @ ? Collected: ??[id number] ??[id number] Source: Throat ?Processed: ??[id number] ??2016 ? 1V Final Report ------ ?[id number] ??1330 No beta hemolytic Strep group A isolated . @ = Rapid F/U Cult Performed at ??[address] [place], [place] ?[address] Specimen (Source) Anatomical Collection Method Collection Time Re ceived Time Location / / Volume Laterality 10/16/2002 8:16 PM CDT Poonam Brian MD LAB_1 Performing Organization Address City/State/ZIP Code Phon e Number HP CONVERSION documented in this encounter Visit Diagnoses Not on filedocumented in this encounter Care Teams Ship Boat Or Barge Mate Relationship Specialty Start Date End Date Sim Asher MD PCP - General 07/19/10 02/28/13 [address] [place] [address] documented as of this encounter
--- OUTSIDE RECORDS SUMMARY | 2022-01-14 10:51 | XMS_ITS | Encounter Summary ---
:1990 Author [facility] Address [address] [place] [address] Care Team Providers Name Role Phone Sim Asher MD Primary Care Provider Encounter Details Date Type Department Care Team Description 06/28/2002 PN Conversion Only [place] [address] [facility] [address] [place] [address] [place], [place] [address] (Wo rk) Social History Tobacco Use Types Packs/Day Years Used Date Smoking Tobacco: Never Assessed Sex Assigned at Date Recorded Not on file documented as of this encounter Plan of Treatment Not on filedocumented as of this encounter Procedures Procedure Name Priority Date/Time Associated Diagnosis Comme nts STREP GROUP A Routine 06/28/2002 12:48 PM Results for this ANTIGEN TEST COMPUTER EQUIPMENT REPAIRER procedure are i n the results section. BETA STREP FOLLOWUP Routine 06/28/2002 12:48 PM R esults for this COMPUTER EQUIPMENT REPAIRER procedure are i n the results section. documented in this encounter Results Strep Group A Antigen Test (06/28/2002 12:48 PM COMPUTER EQUIPMENT REPAIRER) Analysis Performed At Patho logist Time Signature Strep Group A Negative Negative HP CONVERSION Antigen Test Comment: Culture to follow. Specimen (Source) Anatomical Collection Method Collection Time Re ceived Time Location / / Volume Laterality 06/28/2002 12:48 PM COMPUTER EQUIPMENT REPAIRER Austen Sullivan MD LAB_1 Performing Organization Address City/State/ZIP Code Phon e Number HP CONVERSION Beta Strep Followup (06/28/2002 12:48 PM COMPUTER EQUIPMENT REPAIRER) P athologist Signature Strep Screen SEE TEXT HP CONVERSION Comment: Patient: EDWARD DREW Rapid Strep Follow up Culture @ ? Collected: ??[id number] ??1248 Source: Throat ?Processed: ??[id number] ??1256 ? V Final Report ------ ?[id number] ??0717 No beta hemolytic Strep group A isolated . @ = Rapid F/U Cult Performed at ??[address] [place], [place] ?[address] Specimen (Source) Anatomical Collection Method Collection Time Re ceived Time Location / / Volume Laterality 06/28/2002 12:48 PM COMPUTER EQUIPMENT REPAIRER Austen Sullivan MD LAB_1 Performing Organization Address City/State/ZIP Code Phon e Number HP CONVERSION documented in this encounter Visit Diagnoses Not on filedocumented in this encounter Care Teams Community Outreach Coordinator Relationship Specialty Start Date End Date Sim Asher MD PCP - General 07/19/10 02/28/13 [address] [place], [place] [id number] documented as of this encounter
--- OUTSIDE RECORDS SUMMARY | 2022-01-14 10:51 | XMS_ITS | Clinical Summary ---
:1990 Author Organization [facility] [place] [address] Care Team Providers Name Role Phone Pcp, No Primary Care Provider Unavailable Allergies Active Allergy Reactions Severity Noted Date Comments Latex *Unknown 10/04/2017 Penicillins *Unknown 10/04/2017 Medications Medication Sig Dispensed Refills Start Date End Date Status escitalopram oxalate TAKE 1 TABLET BY 30 Tablet 0 06/23/2020 Active (LEXAPRO) 10 mg MOUTH EVERY DAY tabletIndications: IN THE MORNING Depression, recurrent (HC), KATALINA (generalized anxiety disorder) escitalopram oxalate TAKE 1 TABLET BY 14 Tablet 0 10/26/2020 Active (LEXAPRO) 20 mg MOUTH EVERY tabletIndications: MORNING Depression, recurrent (HC), KATALINA (generalized anxiety disorder) Active Problems Problem Noted Date Depression, recurrent 06/03/2020 KATALINA (generalized anxiety disorder) 06/03/2020 Seasonal allergies 06/02/2020 Resolved Problems Problem Noted Date Resolved Date Generalized anxiety disorder 06/02/2020 06/03/2020 Immunizations Name Administration Dates Next Due DTP-HIB 12/11/1993, 03/24/1993, 1992, 1992 DTaP 07/23/1997 DTaP-HIB (TriHIBIT) 12/11/1993, 03/24/1993, 1992, 1992 Hepatitis A (Peds) 10/08/2007, 08/14/2006 Hepatitis B (Peds) 09/09/2005, 04/13/2005, 11/24/2004 Hepatitis B, Unspecified 09/09/2005, 04/13/2005, 11/24/2004 Influenza Virus, Unspecified 01/30/2016, 02/28/2007, 007 Influenza, IIV4 06/03/2020, 04/05/2019, 06/14/2018, 01/30/2016, 01/15/2016 MMR 07/23/1997, 12/11/1993 Meningococcal Vaccine (Menactra) 11/29/2010, 08/14/2006 Meningococcal Vaccine (Menomune) 08/14/2006 Oral Polio Vaccine 07/23/1997, 12/08/1993, 1992, 1992 Td (Age >=7 Years) 10/02/2003 Tdap 11/29/2010 Varicella Vaccine 10/08/2007, 01/15/2001 Family History Medical History Relation Name Comments Good Health Brother Good Health Father Heart Disease Maternal Grandfather Skin cancer Mother Good Health Sister Relation Name Status Comments Brother Father Maternal Grandfather Maternal Grandmother Mother Paternal Grandfather Paternal Grandmother Sister Social History Tobacco Use Types Packs/Day Years Used Date Never Smoker Smokeless Tobacco: Never Used Tobacco Cessation: Counseling Given: Yes Alcohol Use Standard Drinks/Week Comments Yes 0 (1 standard drink = 0.6 oz pure alcoho l) all of above Alcohol Habits Answer Date Recorded How often do you have a drink containing alcohol? 2-3 times a week 06/03/2020 How many drinks containing alcohol do you have on a 1 or 2 06/25/2018 typical day when you are drinking? How often do you have six or more drinks on one Less than mo nthly 06/25/2018 occasion? Comment: all of above 06/25/2018 Sex Assigned at Date Recorded Male 06/10/2020 10:26 AM [facility]Y ON [facility] Obstetrics History Last Filed Vital Signs Vital Sign Reading Time Taken Comments Blood Pressure 110/80 06/03/2020 8:10 AM [facility]ER Pulse 58 06/03/2020 8:10 AM [facility]Y ON [facility]ER Temperature 36.5 ??C (97.7 ??F) 06/25/2018 7:48 AM CDT Respiratory Rate - - Oxygen Saturation 99% 06/25/2018 7:48 AM CDT Inhaled Oxygen Concentration - - Weight 132.9 kg (293 lb) 06/03/2020 8:10 AM [facility] Height 190.5 cm (6' 3) 06/03/2020 8:10 AM TRY ON [facility]ER Body Mass Index 36.62 06/03/2020 8:10 AM TRY ON [facility]ER Plan of Treatment Health Maintenance Due Date Last Done Comments COVID-19 vaccine series (#1) 01/17/1993 Hepatitis C screening for age 0407/18/2010 18-79 Tetanus booster 11/29/2020 11/29/2010, 10/02/2003 BMI (ht and wt on same day) for 06/03/2021 06/03/2020, 06/15 age 18+ Depression screening for age 12+ 06/30/2021 06/30/2020, , 06/03/2020 Influenza for age 9-49 12/16/2021 06/03/2020, 04/05/2019, 06/14/2018, Additional history exists Tdap Completed 11/29/2010 Results Not on filefrom Last 3 Months Insurance Payer Benefit Plan / Subscriber ID Effective Dates Phone Addre ss Type Group BLUE CROSS BLUE CROSS OF [id number] 2019-Present [address] [place] [address] Care Teams Checker Relationship Specialty Start Date End Date Pcp, No PCP - General 12/16/15 .
--- OUTSIDE RECORDS SUMMARY | 2022-01-14 10:51 | XMS_ITS | Encounter Summary ---
:1990 Author Organization [employer] Address [address] [place] [address] Care Team Providers Name Role Phone Sim Asher MD Primary Care Provider Reason for Visit Reason Comments Other Encounter Details Date Type Department Care Team Description 06/29/2004 Telephone Elvi Massey MD Other [address] [place] [address] [place] [address] [phone] (Wo rk) Social History Tobacco Use Types Packs/Day Years Used Date Smoking Tobacco: Never Assessed Sex Assigned at Date Recorded Not on file documented as of this encounter [employer] [place], Message - 06/29/2004 9:00 AM CST Phone Note filed by [employer] at 08/02/10 9722 Author: [employer] Service: (none) Author Type: (none) Filed: 08/02/10 0069 Note Time: 06/29/04 0900 Status: Signed Market Development Specialist: [employer] Father is calling stating that Alejo has been ill for 48 hours with stomach ache, headache, fever of 100.6 today, and raspy throat. Sibling has had recurrent strep, and ialso complaining of sx starting today. Advised appointment. Father will discuss this with his , and call back if they desire appointment. Created on 29Jun2004 9:00am by PRIMITIVO PRUETT WHEAD STONER AND POLISHER documented in this encounter Plan of Treatment Not on filedocumented as of this encounter Visit Diagnoses Not on filedocumented in this encounter Care Teams Television Director Relationship Specialty Start Date End Date Sim Asher MD PCP - General 07/19/10 02/28/[address] [place] [address] documented as of this encounter
--- OUTSIDE RECORDS SUMMARY | 2022-01-14 10:51 | XMS_ITS | Encounter Summary ---
:1990 Author [facility] Address [address] [place] [address] Care Team Providers Name Role Phone Sim Asher MD Primary Care Provider Encounter Details Date Type Department Care Team Description 04/29/2004 PN Conversion Only [place] CONVERSION Katherine, [address], DRILL OPERATOR AUTOMATIC, [place] [address] [address] [place] [address] (Wo rk) Social History Tobacco Use Types Packs/Day Years Used Date Smoking Tobacco: Never Assessed Sex Assigned at Date Recorded Not on file documented as of this encounter Plan of Treatment Not on filedocumented as of this encounter Procedures Procedure Name Priority Date/Time Associated Comments Diagnosis BORDETELLA PERTUSSIS / Routine 04/29/2004 10:24 R esults for this PARAPERTUSSIS AM DIRECTOR BUSINESS INTELLIGENCE procedure are in [facility] the results section. documented in this encounter Results Bordetella Pertussis And Para Pcr (04/29/2004 10:24 AM DIRECTOR BUSINESS INTELLIGENCE) [facility] Method Time Signature Specimen Source NASAL PH No normal HP CONVERSION range Bordetella NEGATIVE No normal HP CONVERSION Pertussis PCR range Comment: Interpretive data: INTERPRETATION: Bordetella pertussis by PCR ??Negative - Bordetella pertussis bacte rial DNA not ? detected by PCR. ??Positive - Bordetella pertussis bacte rial DNA detected ? by PCR. A negative result does not rule out the presence of B. pertussis DNA in concentrations below the level of detection by the assay. A false positive for B. pertussis may occur in samples containing B. holme sii DNA. This test is performed pursuant to an ag reement with [employer] The performance characteristics of this test were validated by [employer]. The U.S. Food and Drug Administration (FDA) has not ap proved this test. The results are not intended to be used as the sole means for clinical diagnosis or pat ient management decisions. [employer] is authorized under [facility] Laboratory Improvement Amendments (CLIA) and by all states to perform high-complexity testing. Bordetella parapertussis PCR NEGATIVE No normal range HP CONVERSION Comment: Interpretive data: INTERPRETATION: Bordetella parapertussis by PCR ??Negative - Bordetella parapertussis b acterial DNA not ? detected by PCR. ??Positive - Bordetella parapertussis b acterial DNA ? detected by PCR. A negative result does not rule out the presence of B. parapertussis DNA in concentrations b elow the level of detection by the assay. A false positive for B. pertussis may occur in samples containing B. holme sii DNA. Specimen (Source) Anatomical Collection Method Collection Time Re ceived Time Location / / Volume Laterality 04/29/2004 10:24 AM DIRECTOR BUSINESS INTELLIGENCE Jessi Murphy APRN, POOL INSTALLER LAB_1 Performing Organization Address City/State/ZIP Code Phon e Number HP CONVERSION documented in this encounter Visit Diagnoses Not on filedocumented in this encounter Care Teams Boot Trimmer Relationship Specialty Start Date End Date Sim Asher MD PCP - General 07/19/10 02/28/13 [address] [place] [address] documented as of this encounter
--- OUTSIDE RECORDS SUMMARY | 2022-01-14 10:51 | XMS_ITS | Encounter Summary ---
:1990 [facility] Address [address] [place] [address] Care Team Providers Name Role Phone Sim Asher MD Primary Care Provider Encounter Details Date Type Department Care Team Description 05/28/2003 PN Conversion Only [place] CONVERSION Valentin Maloney, [address] [place] [address] Social History Tobacco Use Types Packs/Day Years Used Date Smoking Tobacco: Never Assessed Sex Assigned at Date Recorded Not on file documented as of this encounter Plan of Treatment Not on filedocumented as of this encounter Procedures Procedure Name Priority Date/Time Associated Comments Diagnosis STREP GROUP A ANTIGEN Routine 05/28/2003 2:58 PM Results for this TEST REGISTERED NURSE BONE MARROW TRANSPLANT procedure are i n the results section. BETA STREP FOLLOWUP Routine 05/28/2003 2:58 PM Re sults for this REGISTERED NURSE BONE MARROW TRANSPLANT procedure are i n the results section. MONONUCLEOSIS SCREEN Routine 05/28/2003 11:07 Res ults for this AM REGISTERED NURSE BONE MARROW TRANSPLANT procedure are i n the results section. COMPLETE BLOOD COUNT Routine 05/28/2003 11:07 Res ults for this W/3DIFF AM REGISTERED NURSE BONE MARROW TRANSPLANT procedure are i n the results section. documented in this encounter Results Strep Group A Antigen Test (05/28/2003 2:58 PM REGISTERED NURSE BONE MARROW TRANSPLANT) Analysis Performed At Patho logist Time Signature Strep Group A Negative Negative HP CONVERSION Antigen Test Comment: Culture to follow. Specimen (Source) Anatomical Collection Method Collection Time Re ceived Time Location / / Volume Laterality 05/28/2003 2:58 PM REGISTERED NURSE BONE MARROW TRANSPLANT Valentin Maloney MD LAB_1 Performing Organization Address City/State/ZIP Code Phon e Number HP CONVERSION Beta Strep Followup (05/28/2003 2:58 PM REGISTERED NURSE BONE MARROW TRANSPLANT) athologist Signature Strep Screen SEE TEXT HP CONVERSION Comment: Patient: EDWARD DREW Rapid Strep Follow up Culture @ ? Collected: ??[id number] ??[id number] Source: Throat ?Processed: ??[id number] ??1459 ? 1C Final Report ------ ?[id number] ??1403 No beta hemolytic Strep group A isolated . @ = Rapid F/U Cult Performed at ??[address] [place], [place] ?[address] Specimen (Source) Anatomical Collection Method Collection Time Re ceived Time Location / / Volume Laterality 05/28/2003 2:58 PM REGISTERED NURSE BONE MARROW TRANSPLANT Valentin Maloney MD LAB_1 Performing Organization Address City/State/ZIP Code Phon e Number HP CONVERSION Complete Blood Count W/3Diff (05/28/2003 11:07 AM REGISTERED NURSE BONE MARROW TRANSPLANT) [facility] gist Method Time Signature White Blood Cell 4.9 4.5 - 13.5 HP CONVERSIO N Count K/cmm Red Blood Cell 4.95 3.80 - HP CONVERSION Count 5.20 m/cmm Hemoglobin 13.6 11.5 - HP CONVERSION 15.0 gm/dL Hematocrit 41.1 33.0 - HP CONVERSION 43.0 % Mean Corpuscular 83.1 77.0 - HP CONVERSION Volume 95.0 fl Mean Corpuscular 27.5 24.0 - HP CONVERSION Hemoglobin 34.0 pg Mean Corpuscular 33.1 32.0 - HP CONVERSION Hemoglobin Conc 36.5 gm/dL [place] RDW 12.9 11.0 - HP CONVERSION 15.0 % Platelet Count 302 150 - 450 HP CONVERSION k/cmm Differential Auto-Dif No normal HP CONVERSION Verify range Granulocyte 2.1 K/u HP CONVERSION Absolute Comment: Absolute granulocytes=combined absolute number of neutrophils, eosinophils and basophils. % Granulocytes 42.7 % HP CONVERSION Comment: Percent Granulocytes=combined percentage of neutrophils, eosinophils and basophils. Lymphocyte % 49.2 % HP CONVERSION Monocyte 8.1 % HP CONVERSION Comment: See physician copy for explanat ion of granulocyte # and % values. Specimen (Source) Anatomical Collection Method Collection Time Re ceived Time Location / / Volume Laterality 05/28/2003 11:07 AM REGISTERED NURSE BONE MARROW TRANSPLANT Valentin Maloney MD LAB_1 Performing Organization Address City/State/ZIP Code Phon e Number HP CONVERSION Mononucleosis Screen (05/28/2003 11:07 AM REGISTERED NURSE BONE MARROW TRANSPLANT) [facility] gist Method Time Signature Infectious Negative Negative HP CONVERSION Mononucleosis Screen Specimen (Source) Anatomical Collection Method Collection Time Re ceived Time Location / / Volume Laterality 05/28/2003 11:07 AM REGISTERED NURSE BONE MARROW TRANSPLANT Valentin Maloney MD LAB_1 Performing Organization Address City/State/ZIP Code Phon e Number HP CONVERSION documented in this encounter Visit Diagnoses Not on filedocumented in this encounter Care Teams Design Tech Relationship Specialty Start Date End Date Sim Asher MD PCP - General 07/19/10 02/28/13 [address] [place] [address] documented as of this encounter
--- OUTSIDE RECORDS SUMMARY | 2022-01-14 10:51 | XMS_ITS | Encounter Summary ---
:1990 Author Organization [employer] Address [address] [place] [address] Care Team Providers Name Role Phone Javier Asher MD Primary Care Provider Reason for Visit Reason Comments Other Encounter Details Date Type Department Care Team Description 05/03/2004 Telephone [facility], Message Other [address] [place], [place] [id number] Social History Tobacco Use Types Packs/Day Years Used Date Smoking Tobacco: Never Assessed Sex Assigned at Date Recorded Not on file documented as of this encounter [facility], Message - 05/03/2004 2:09 PM CST Phone Note filed by SergeMD at 08/02/10 0621 Author: SergeMD Service: (none) Author Type: (none) Filed: 08/02/10 1608 Note Time: 05/03/04 1409 Status: Signed Heel Layer: SergeMD MESSAGE TO CARE TEAM NAME OF CALLER:Karol (mom) NAME OF CLINICIAN:Jessi Bowman MESSAGE:Karol is calling for test results for Tom. She would also like Ene's (her daughter) test results. Please call to discuss. PHARMACY NAME: PHARMACY PHONE #: CALL BACK PHONE #:[phone] (home) BEST TIME TO CALL BACK:anytime Is it OK to leave detailed message on voicemail?yes Created on 03May2004 2:09pm by SHRUTHI BOSTON On 03May2004 3:19pm JAVIER ASHER wrote: No Pertussis. Acknowledged by JAVIER ASHER on 3:19pm On 03May2004 3:26pm VELMA CHARLES wrote: Mom was notified of the results. documented in this encounter Plan of Treatment Not on filedocumented as of this encounter Visit Diagnoses Not on filedocumented in this encounter Care Teams Lawn Care Professional Relationship Specialty Start Date End Date Javier Asher MD PCP - General 07/19/10 02/28/[address] [place] [address] documented as of this encounter
== END 2022-01-11 20:17 | disposition home or self-care (01) ==
PROVIDERS: Emergency Provider Emergency Medicine Emergency Medical Services
DX: S40.012A Contusion of left shoulder, initial encounter (principal); S70.02XA Contusion of left hip, initial encounter; S20.212A Contusion of left front wall of thorax, initial encounter; V43.02XA Car driver injured in collision with other type car in nontraffic accident, initial encounter
CPT/HCPCS: 71101; 72040; 73030; 99283; 99284; 99285

== ENCOUNTER 2022-09-29 09:39 | Outpatient (CLI) | payer OTHER, SELFPAY | END 2022-09-29 09:40 | disposition home or self-care (01) | LOC: NFLDREF 10-02 07:56 | PROVIDERS: PCP Emergency Medicine; Referring Provider Emergency Medicine; Visit Provider Emergency Medicine | DX: E66.9 Obesity, unspecified (principal); Z13.6 Encounter for screening for cardiovascular disorders | CPT/HCPCS: 80053; 80061; 84443 ==

== ENCOUNTER 2024-01-03 13:00 | Outpatient (CLI) | payer BC, SELFPAY ==
--- OUTSIDE RECORDS SUMMARY | 2024-01-03 13:01 | XMS_ITS | Clinical Summary ---
Author Organization [facility] Address [address] [place] [address] Care Team Providers Care Court Reporter Name Role Phone Unavailable Primary Care Provider Unavailabl e Source Comments You are receiving this document as you are listed as the primary care provider,follow-up provider, or the patient has been referred to you for consultation.This is in compliance with the Medicare and[facility] EHR Incentive Program,which states Providers who transition their patient to another setting of careor provider of care or refers their patient to another provider of care shouldprovide summary care record for each transition of care or referral. [facility] Allergies Active Allergy Reactions Criticality Noted Date Comments Latex 08/10/2010 PN: Converted from LW Latex Sensitivity Flag Other 06/25/2010 PN: LW Other1: -LATEX Penicillins 06/28/2002 PN: LW Reaction: Rash, Generalized Review Contrast Media 06/25/2010 PN: LW CM1: >>> NO CONTRAST ADVERSE REACTION <<< Reaction : Review Food Intolerance 06/25/2010 PN: LW FI1: bananas, cantalope, kiwi LW FI2: bananas, cantalope, kiwi Medications Medication Sig Dispensed Refills Start Date End Date Status citalopram (CELEXA) 20 MG tablet TAKE 1 TABLET BY MOUTH ONCE DAILY. 90 Tablet 08/24/2018 Active Active Problems Problem Noted Date Diagnosed Date Moderate episode of recurrent major depressive d isorder 07/19/2017 Anxiety 07/19/2017 Closed fracture of radius 07/20/2009 Overview (12/07/2016): LW Modifier: Mar 2003. Left. Tranverse.Non-dispaced. ; Fx Radius NOS Closed Concussion with no loss of consciousness 010 Overview (12/07/2016): August 200809. Grade I. ; Concussion No LOC Asthma 11/24/2004 Overview (12/07/2016): Trigger: Swimming.Running.URI. [id number] ; Asthma NOS Resolved Problems Problem Noted Date Diagnosed Date Resolved Date Adjustment reaction with anx iety and depression 02/25/2016 07/19/2017 Other acne 10/08/2007 11/29/2010 Overview (12/07/2016): LW Modifier: See's derm. ; Acne NOS Acute pharyngitis 04/21/2005 05/22/2005 Overview (12/07/2016): LW Onset: ; Pharyngitis Acute Immunizations Name Administration Dates Next Due DTaP 07/23/1997 DTaP/Hib 12/11/1993, 3,1992, 993 Flu Vac Preserv Free (3+yrs) 02/28/2007 HepA Ped/Adol (1-18 yrs) 10/08/2007,08/14/2006 HepB Ped/Adol (0-18 yrs) 09/09/2005,04/13/2005,0 11/24/2004 Influenza IIV4 (Quadrivalent ) 0.5mL (82569) 01/30/2016 MCV4 (Menactra) 11/29/2010,08/14/2006 MMR 07/23/1997,12/11/1993 OPV, Trivalent (Orimune or tOPV) 998,12/08/1993,1992, 993 TDAP (ADACEL) 11/29/2010 Td 10/02/2003 Varicella 10/08/2007,01/15/2001 Family History Medical History Relation Name Comments Anxiety Father Depression Father Mental Disorder Father Anxiety Mother Depression Mother Cancer Maternal Grandfather Heart Disease Maternal Grandfather Anxiety Sister 1 Lilli Relation Name Status Comments Father Alive Born in 1958 Mother Alive Born in 1963 Brother [place] Alive Born in 1995 Maternal Grandfather Sister 1 Lilli Alive Born in 1989 Sister 2 January Alive Born in 1999 Social History Tobacco Use Types Packs/Day Years Used Date Smoking Tobacco: Never Smokeless Tobacco: Never Alcohol Use Standard Drinks/Week Comments Yes 2 (1 standard drink = 0.6 oz pur e alcohol) weekly Sex and Gender Information Value Date Recorded Sex Assigned at Not on file Gender Identity Not on file Sexual Orientation Not on file Last Filed Vital Signs [...] 190.5 cm (6' 3) 02/25/2016 3:38 PM RENAL DIALYSIS TECHNICIAN Body Mass Index 29.12 02/25/2016 3:38 PM RENAL DIALYSIS TECHNICIAN Plan of Treatment Health Maintenance Due Date Last Done Comments Adult Preventive Visit 02/24/2018 02/25/2016 Asthma ACT 07/19/2018 07/19/2017, 10/16, 10/13/2016 DTaP/Tdap/Td (7 - Tdap) 11/29/2020 11/30/19, 10/02/2003, 07/23/1997, Additional history exists COVID-19 Vaccine ( season) 2023 Influenza (#1) 2023 01/30/2016, 02/28/2007 Zoster/Shingles (1 of 2) 2042 Hib Completed 12/11/1993, 11/1992, 1992, Additional history exists IPV (Polio) Completed 07/23/1997, 11/16, 1992, Additional history exists HepB Completed 09/09/2005, 03/18, 11/24/2004 HepA Completed 10/08/2007, 08/14/2006 HIV Screening (Preventive Services) Completed 06/24/2010 Hep C Screening (Preventive Services) Completed 06/24/2010 MCV4 Completed 11/29/2010, 08/14/2006 HPV Vaccine Aged Out No longer eligi ble based on patient's age to complete this topic Pneumococcal Aged Out No longer eligi ble based on patient's age to complete this topic Procedures Procedure Name Priority Date/Time Associated Diagnosis Comments HIV ANTIBODY Routine 06/24/2010 11:53 AM RENAL DIALYSIS TECHNICIAN HEPATITIS C ANTIBODY, WITH REFLEX Routine 06/24/2010 11:53 AM RENAL DIALYSIS TECHNICIAN from Last 3 Months or Most Recently Relevant to Health Maintenance Results * HIV ANTIBODY (06/24/2010 11:53 AM RENAL DIALYSIS TECHNICIAN) HIV 1/HIV 2 Non-React Non-Reacti ve HP CONVERSION 06/24/2010 11:5 3 AM RENAL DIALYSIS TECHNICIAN Sim Asher MD LAB_1 HP CONVERSION * Hepatitis C Antibody, with Reflex (06/24/2010 11:53 AM RENAL DIALYSIS TECHNICIAN) Hepatitis C Antibody Non-React Non-Reacti ve HP CONVERSION 06/24/2010 11:5 3 AM RENAL DIALYSIS TECHNICIAN Sim Asher MD LAB_1 HP CONVERSION from Last 3 Months or Most Recently Relevant to Health Maintenance
--- OUTSIDE RECORDS SUMMARY | 2024-01-03 13:02 | XMS_ITS | Clinical Summary ---
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 Phone Pcp, No Primary Care Provider Unavailabl e Allergies Active Allergy Reactions Criticality Noted Date Comments Latex *Unknown 10/04/2017 Penicillins *Unknown 10/04/2017 Medications No known medications Active Problems Problem Noted Date Diagnosed Date Depression, recurrent 06/03/2020 KATALINA (generalized anxiety disorder) 06/03/2020 Seasonal allergies 06/02/2020 Resolved Problems Problem Noted Date Diagnosed Date Resolved Date Generalized anxiety disorder 06/02/2020 06/03/2020 Immunizations Name Administration Dates Next Due DTP-HIB 12/11/1993,03/24/1993,1992 ,1992 DTaP 07/23/1997 DTaP-HIB (TriHIBIT) 12/11/1993,03/24/1993,1992,1992 Hepatitis A (Peds) 10/08/2007,08/14/2006 Hepatitis B (Peds) 09/09/2005,04/13/2005, 005 Hepatitis B, Unspecified 09/09/2005,04/13/2005,0 11/24/2004 Influenza Virus, Unspecified 01/30/2016,02/29/20 07,02/28/2007 Influenza, IIV4 06/03/2020, 9,06/14/2018,01/30/2016 ,01/15/2016 MMR 07/23/1997,12/11/1993 Meningococcal Vaccine (Menactra) 11/29/2010,07/18 Meningococcal Vaccine (Menomune) 08/14/2006 Oral Polio Vaccine 07/23/1997,12/08/1993, 993,1992 Td (Age >=7 Years) 10/02/2003 Tdap 02/23/2022,11/29/2010 Varicella Vaccine 10/08/2007,01/15/2001 Family History Medical History Relation Name Comments Good Health Brother Good Health Father Heart Disease Maternal Grandfather Skin cancer Mother Good Health Sister Relation Name Status Comments Brother Father Maternal Grandfather Maternal Grandmother Mother Paternal Grandfather Paternal Grandmother Sister Social History Tobacco Use Types Packs/Day Years Used Date Smoking Tobacco: Never Smokeless Tobacco: Never Tobacco Cessation:Counseling Given: Yes Alcohol Use Standard Drinks/Week Comments Yes 0 (1 standard drink = 0.6 oz pur e alcohol) all of above PHQ-2 Answer Date Recorded PHQ-2 TOTAL SCORE 4 06/30/2020 Social Connections Answer Date Recorded Frequency of Communication with Friends and Fami ly Not on file 04/17/2021 Financial Resource Strain Answer Date R ecorded Difficulty of Paying Living Expenses Not on file 04/17/2021 Difficulty of Paying Living Expenses Not on file 04/17/2021 Sex and Gender Information Value Date Recorded Sex Assigned at Male 06/10/2020 10:26 AM DIRECTOR OF FIELD SALES Gender Identity Male 06/10/2020 10:26 AM DIRECTOR OF FIELD SALES Sexual Orientation Bisexual 06/10/2020 10 :26 AM DIRECTOR OF FIELD SALES Obstetrics History Last Filed Vital Signs Vital Sign Reading Time Taken Comments Blood Pressure 126/78 02/23/2022 11:23 AM DIRECTOR OF FIELD SALES Pulse 71 02/23/2022 11:23 AM DIRECTOR OF FIELD SALES Temperature 36.5 ??C (97.7 ??F) 06/25/2018 7:48 AM CD T Respiratory Rate - - Oxygen Saturation 98% 02/23/2022 11:23 AM DIRECTOR OF FIELD SALES Inhaled Oxygen Concentration - - Weight 132.9 kg (293 lb) 06/03/2020 8:10 AM DIRECTOR OF FIELD SALES Height 190.5 cm (6' 3) 06/03/2020 8:10 AM DIRECTOR OF FIELD SALES Body Mass Index 36.62 06/03/2020 8:10 AM DIRECTOR OF FIELD SALES Plan of Treatment Health Maintenance Due Date Last Done Comments HIV for age 15-65 07/19/2007 Hepatitis C screening for age 18-79 2010 BMI (ht and wt on same day) for age 18+ 06/03/2021 06/03/2020, 06/25/2018 Depression screening for age 12+ 06/30/2021 06/30/2020, 06/10/2020, 06/03/2020 COVID-19 vaccine series ( season) 2023 11/19/2020, 09/07/2020 Influenza for age 9-49 12/17/2023 , 04/05/2019, 06/14/2018, Additional history exists Tetanus booster 02/24/2032 02/23/2022, 11/15, 10/02/2003 Tdap Completed 02/23/2022, 11/29/2010 Pneumococcal series for age 6-64 Aged Out No longer eligible based on patient's age to complete this topic Care Teams 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 PCP - General 12/16/15
== END 2024-01-03 13:01 | disposition home or self-care (01) ==
PROVIDERS: PCP Emergency Medicine; Visit Provider Emergency Medicine
DX: E78.5 Hyperlipidemia, unspecified (principal); Z13.1 Encounter for screening for diabetes mellitus
CPT/HCPCS: 80061; 82947

== ENCOUNTER 2024-02-15 10:22 | Outpatient (CLI) | payer BC, SELFPAY ==
--- OUTSIDE RECORDS SUMMARY | 2024-02-15 10:25 | XMS_ITS | Clinical Summary ---
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,which states Providers who transition their patient to another setting of careor provider of care or refers their patient to another provider of care shouldprovide summary care record for each transition of care or referral. [facility] Allergies Active Allergy Reactions Criticality Noted Date [...] LOC Asthma 11/24/2004 Overview (12/07/2016): Trigger: Swimming.Running.URI. [id number] ; Asthma NOS Resolved Problems Problem Noted [...] 09/09/2005,04/13/2005,0 11/24/2004 Influenza IIV4 (Quadrivalent ) 0.5mL (15385) 01/30/2016 MCV4 (Menactra) 11/29/2010,08/14/2006 MMR 07/23/1997,12/11/1993 OPV, [...] 190.5 cm (6' 3) 02/25/2016 3:38 PM SHINGLE INSPECTOR Body Mass Index 29.12 02/25/2016 3:38 PM SHINGLE INSPECTOR Plan of Treatment Health Maintenance Due Date [...] on patient's age to complete this topic RSV Aged Out No longer eligi ble based on patient's age to complete this topic Pneumococcal Aged Out No longer eligi ble based on patient's age to complete this topic Procedures Procedure Name Priority Date/Time Associated Diagnosis Comments HIV ANTIBODY Routine 06/24/2010 11:53 AM SHINGLE INSPECTOR HEPATITIS C ANTIBODY, WITH REFLEX Routine 06/24/2010 11:53 AM SHINGLE INSPECTOR from Last 3 Months or Most Recently Relevant to Health Maintenance Results * HIV ANTIBODY (06/24/2010 11:53 AM SHINGLE INSPECTOR) HIV 1/HIV 2 Non-React Non-Reacti ve HP CONVERSION 06/24/2010 11:5 3 AM SHINGLE INSPECTOR Sim Asher MD LAB_1 HP CONVERSION * Hepatitis C Antibody, with Reflex (06/24/2010 11:53 AM SHINGLE INSPECTOR) Hepatitis C Antibody Non-React Non-Reacti ve HP CONVERSION 06/24/2010 11:5 3 AM SHINGLE INSPECTOR Sim Asher MD LAB_1 HP CONVERSION from Last 3 Months or Most Recently Relevant to Health Maintenance
--- OUTSIDE RECORDS SUMMARY | 2024-02-15 10:25 | XMS_ITS | Clinical Summary ---
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 Name Role Phone Pcp, No Primary Care [...] Sex Assigned at Male 06/10/2020 10:26 AM SOFT CRAB SHEDDER Gender Identity Male 06/10/2020 10:26 AM SOFT CRAB SHEDDER Sexual Orientation Bisexual 06/10/2020 10 :26 AM SOFT CRAB SHEDDER Obstetrics History Last Filed Vital Signs Vital Sign Reading Time Taken Comments Blood Pressure 126/78 02/23/2022 11:23 AM SOFT CRAB SHEDDER Pulse 71 02/23/2022 11:23 AM SOFT CRAB SHEDDER Temperature 36.5 ??C (97.7 ??F) 06/25/2018 7:48 AM CD T Respiratory Rate - - Oxygen Saturation 98% 02/23/2022 11:23 AM SOFT CRAB SHEDDER Inhaled Oxygen Concentration - - Weight 132.9 kg (293 lb) 06/03/2020 8:10 AM SOFT CRAB SHEDDER Height 190.5 cm (6' 3) 06/03/2020 8:10 AM SOFT CRAB SHEDDER Body Mass Index 36.62 06/03/2020 8:10 AM SOFT CRAB SHEDDER Plan of Treatment Health Maintenance Due Date Last Done Comments HIV for age 15-65 07/19/2007 Hepatitis C screening for age 18-79 2010 BMI (ht and wt on same day) for age 18+ 06/03/2021 06/03/2020, 06/25/2018 Depression screening for age 12+ 06/30/2021 06/30/2020, 06/10/2020, 06/03/2020 COVID-19 vaccine series (2023- season) 2023 11/19/2020, 09/07/2020 Influenza for age 9-49 12/17/2023 , 04/05/2019, 06/14/2018, Additional history exists Tetanus booster 02/24/2032 02/23/2022, 11/15, 10/02/2003 Tdap Completed 02/23/2022, 11/29/2010 Pneumococcal series for age 6-64 Aged Out No longer eligible based on patient's age to complete this topic Care Teams Reimbursement Representative Relationship Specialty Start Date End Date Pcp, No . PCP - General 12/16/15
== END 2024-02-15 10:23 | disposition home or self-care (01) ==
PROVIDERS: PCP Emergency Medicine; Visit Provider Emergency Medicine
DX: E66.9 Obesity, unspecified (principal); Z71.3 Dietary counseling and surveillance
CPT/HCPCS: 80053; 84443

== ENCOUNTER 2024-05-01 10:35 | Outpatient (CLI) | payer BC, SELFPAY ==
--- NOTE | 2024-05-01 10:45 | CRLHL7_ITS ---
For Patients: As a result of the Century Cures Act, medical imaging exams and procedure reports are released immediately into your electronic medical record. You may view this report before your referring provider. If you have questions, please contact your health care provider. INDICATION: 33-year-old with left pain and swelling. Evaluate for hematoma. TECHNIQUE: Ultrasound of the scrotum and contents. Sonographic ortiz scale images were obtained with spectral and color Doppler imaging of the testicles. COMPARISON: None FINDINGS: Right testicle: 5.6 x 3.2 x 2.6 centimeter. Normal echotexture. No masses. No suspicious calcifications. Normal arterial and venous color Doppler blood flow. Left testicle: 4.9 x 3.6 x 2.3 centimeter. Normal echotexture. No masses. No suspicious calcifications. Normal arterial and venous and color Doppler blood flow. Epididymis: Unremarkable bilaterally. Normal blood flow. Scrotal Wall: Normal. Other: Complex hypoechoic heterogeneous focus is present superior to the testicle measuring 5.7 x 4.0 x 3.6 centimeters consistent with a hematoma.. No hydroceles. IMPRESSION: Normal testicles. Complex hypoechoic heterogeneous focus is present superior to the testicle consistent with a hematoma measuring 5.7 x 4.0 x 3.6 centimeters. No hydroceles. If clinically indeterminate, suggest interval follow-up to exclude underlying disease. Dictated by Preet Gordon MD @ 05/01/2024 11:55:50 AM (Electronically Signed)
== END 2024-05-01 10:36 | disposition home or self-care (01) ==
PROVIDERS: PCP Emergency Medicine; Visit Provider Surgery
DX: N50.89 Other specified disorders of the male genital organs (principal)
CPT/HCPCS: 76870; 93976